=== PATIENT | female | born 1975 | race African-American/Black ===

== ENCOUNTER 2019-11-02 11:02 | Outpatient (CLI) | payer OTHER, SELFPAY ==
[2019-11-02 11:37] LABS: Basophils Absolute Auto 0.1 K/mm3 (0.0-0.1); Basophils Percent Auto 0.7 % (0.2-1.2); Eosinophils Absolute Auto 0.2 K/mm3 (0-0.3); Eosinophils Percent Auto 1.2 % (0-4.4); Hematocrit 42.3 % (37.0-47.0); Hemoglobin 13.4 g/dL (12.0-15.0); Immature Granulocyte Absolute 0.05 K/mm3 (0.00-0.031); Immature Granulocyte Percent A 0.4 % (0-0.5); Immature Platelet Fraction Pct 2.7 % (0.9-11.2); Lymphocytes Absolute Auto 2.48 K/mm3 (0.9-3.2); Lymphocytes Percent Auto 18.5 % (18.3-44.2); Mean Corpuscular HGB Conc 31.7 g/dl (32-36); Mean Corpuscular Hemoglobin 28.5 pg (26-34); Mean Corpuscular Volume 89.8 fl (80-100); Monocytes Absolute Auto 0.9 K/mm3 (0.1-0.6); Monocytes Percent Auto 6.5 % (2.6-8.5); Neutrophils Absolute Auto 9.7 K/mm3 (1.3-6.7); Neutrophils Percent Auto 72.7 % (45.5-73.1); Platelet Count Result 344 k/mm3 (150-375); Red Blood Count 4.71 M/mm3 (4.2-5.4); Red Cell Distribution Width 14.7 % (11.5-14.5); White Blood Count 13.4 K/mm3 (4.5-10.0)
[2019-11-02 11:48] LABS: Add Urine Microscopic? YES; Appearance Urine Clear (Clear); Bacteria Urine Trace /hpf; Bilirubin Urine Negative (Negative); Blood Urine Negative (Negative); Color Urine Yellow (Yellow); Glucose Urine UA Negative (Negative); Ketones Urine Trace mg/dL (Negative); Leukocyte Esterase Ur 1+ LEU/UL (Negative); Mucus Urine Moderate /lpf; Nitrate Urine Negative (Negative); Protein Urine 1+ mg/dL (Negative); Squamous Epithelial Cell Urine Many /hpf (Few)
[2019-11-02 11:51] LABS: Anion Gap 8 mmol/L (8-16); Blood Urea Nitrogen 8 mg/dL (7-17); Calcium 8.4 mg/dL (8.4-10.2); Carbon Dioxide 25 mmol/L (22-30); Chloride 106 mmol/L (98-107); Cholesterol 224 mg/dL (0-200); Estimated Glomerular Filt Rate > 60; Glucose 83 mg/dL (65-105); HDL Direct 42 mg/dL; Potassium 4.2 mmol/L (3.4-5.0); Sodium 139 mmol/L (137-145); Triglycerides 77 mg/dL (<150)
[2019-11-02 12:00] LABS: LDL Cholesterol Direct 179 mg/dL
== END 2019-11-02 11:03 | disposition home or self-care (01) ==
LOC: ANHLAB 11:04
PROVIDERS: PCP Internal Medicine Infectious Disease; Visit Provider Internal Medicine Infectious Disease
DX: N39.0 Urinary tract infection, site not specified (principal)
CPT/HCPCS: 36415; 80048; 80061; 81001; 85025; 85055

== ENCOUNTER 2019-11-29 12:05 | Outpatient (CLI) | payer OTHER, SELFPAY ==
[2019-11-29 12:39] LABS: Add Urine Microscopic? YES; Appearance Urine Clear (Clear); Bilirubin Urine Negative (Negative); Blood Urine Negative (Negative); Color Urine Amber (Yellow); Glucose Urine UA Negative (Negative); Ketones Urine Negative (Negative); Leukocyte Esterase Ur Negative LEU/UL (NEGATIVE); Mucus Urine Moderate /lpf; Nitrate Urine Negative (Negative); Protein Urine 1+ mg/dL (Negative); RBC Urine 0-2 /hpf (0-2); Specific Grav Ur 1.025 (1.001-1.035); Squamous Epithelial Cell Urine Few /hpf (Few); Urobilinogen Urine Negative mg/dL (<2.0); WBC Urine 0-3 /hpf (0-3)
== END 2019-11-29 12:06 | disposition home or self-care (01) ==
PROVIDERS: PCP Internal Medicine Infectious Disease; Visit Provider Surgery
DX: Z87.440 Personal history of urinary (tract) infections (principal)
CPT/HCPCS: 81001

== ENCOUNTER 2019-12-09 09:26 | Outpatient (CLI) | payer OTHER, SELFPAY ==
--- NOTE | ~2019-12-09 | US_ITS ---
EXAMINATION: US abdomen complete DATE: 12/09/2019 10:01 INDICATION: Unspecified abdominal pain. TECHNIQUE: Multiple grayscale and Doppler ultrasound images of the abdomen were obtained. COMPARISON: CT abdomen and pelvis 06/13/18 FINDINGS: Abdominal aorta is normal in caliber. Inferior vena cava is normal. The visualized portions of the head, body, and tail of the pancreas are normal. The liver is normal without focal lesion. Th ere is normal flow in main portal vein. The gallbladder is normal in size. No gallstones or gallbladd er wall thickening. There was no sonographic Quiroz sign. The common duct is normal and measures 3 mm . The kidneys are normal in size. The spleen is normal in size. IMPRESSION: 1. Normal complete abdomen ultrasound. Reviewed, dictated and finalized at location A.
== END 2019-12-09 09:27 | disposition home or self-care (01) ==
PROVIDERS: PCP Internal Medicine Infectious Disease; Visit Provider Surgery
DX: R10.9 Unspecified abdominal pain (principal)
CPT/HCPCS: 76700

== ENCOUNTER 2019-12-15 12:05 | Outpatient (CLI) | payer OTHER, SELFPAY ==
[2019-12-19 10:32] LABS: H pylori Ag Stool Not Detected (Not Detected)
== END 2019-12-15 12:06 | disposition home or self-care (01) ==
PROVIDERS: PCP Internal Medicine Infectious Disease; Visit Provider Surgery
DX: K51.90 Ulcerative colitis, unspecified, without complications (principal)
CPT/HCPCS: 87338

== ENCOUNTER 2019-12-27 17:21 | Outpatient (CLI) | payer OTHER, SELFPAY ==
--- NOTE | ~2019-12-27 | MM_ITS ---
EXAMINATION: MM screening [facility] BI w melodie HISTORY: Screening TECHNIQUE: Craniocaudal and mediolateral oblique 3-D tomosynthesis images were obtained and synthetic 2-D images were generated. CAD analysis was submitted and interpreted. COMPARISON: Comparison to multiple prior studies sequentially, with oldest reviewed study dated 08/31. BREAST PARENCHYMAL COMPOSITION: The breasts are heterogeneously dense, which may obscure small masses . FINDINGS: There is no evidence of suspicious mass, calcification, or architectural distortion to sugg est malignancy in either breast. There has been no suspicious interval change. IMPRESSION: 1. No mammographic evidence of malignancy. 2. Recommend routine screening mammography in one year. BI-RADS Category 1: Negative Reviewed, dictated and finalized at location A. WARE ENGINEER KERNEL
== END 2019-12-27 17:22 | disposition home or self-care (01) ==
PROVIDERS: PCP Internal Medicine Infectious Disease; Visit Provider Obstetrics & Gynecology
DX: Z12.31 Encounter for screening mammogram for malignant neoplasm of breast (principal)
CPT/HCPCS: 77063; 77067

== ENCOUNTER 2020-12-08 12:48 | Outpatient (CLI) | payer OTHER, SELFPAY ==
[2020-12-08 13:29] LABS: Basophils Absolute Auto 0.1 K/mm3 (0.0-0.1); Basophils Percent Auto 0.6 % (0.2-1.2); Eosinophils Absolute Auto 0.3 K/mm3 (0-0.3); Eosinophils Percent Auto 2.2 % (0-4.4); Hematocrit 39.9 % (37.0-47.0); Hemoglobin 12.6 g/dL (12.0-15.0); Immature Granulocyte Absolute 0.04 K/mm3 (0.00-0.031); Immature Granulocyte Percent A 0.3 % (0-0.5); Lymphocytes Absolute Auto 3.23 K/mm3 (0.9-3.2); Lymphocytes Percent Auto 25.9 % (18.3-44.2); Mean Corpuscular HGB Conc 31.6 g/dl (32-36); Mean Corpuscular Hemoglobin 28.2 pg (26-34); Mean Corpuscular Volume 89.3 fl (80-100); Mean Platelet Volume 9.9 fl (7.4-10.4); Monocytes Absolute Auto 0.9 K/mm3 (0.1-0.6); Monocytes Percent Auto 7.5 % (2.6-8.5); Neutrophils Absolute Auto 7.9 K/mm3 (1.3-6.7); Neutrophils Percent Auto 63.5 % (45.5-73.1); Platelet Count Result 353 k/mm3 (150-375); Red Blood Count 4.47 M/mm3 (4.2-5.4); Red Cell Distribution Width 14.7 % (11.5-14.5); White Blood Count 12.5 K/mm3 (4.5-10.0)
[2020-12-08 13:43] LABS: Anion Gap 6 mmol/L (8-16); Blood Urea Nitrogen 9 mg/dL (7-17); Calcium 8.9 mg/dL (8.4-10.2); Carbon Dioxide 29 mmol/L (22-30); Chloride 105 mmol/L (98-107); Estimated Glomerular Filt Rate > 60; Glucose 80 mg/dL (65-110); Potassium 4.3 mmol/L (3.4-5.0); Sodium 140 mmol/L (137-145)
== END 2020-12-08 12:49 | disposition home or self-care (01) ==
PROVIDERS: PCP Internal Medicine Infectious Disease; Visit Provider Physician Assistant Medical
DX: K51.20 Ulcerative (chronic) proctitis without complications (principal)
CPT/HCPCS: 36415; 80048; 85025

== ENCOUNTER 2021-01-13 10:32 | Outpatient (CLI) | payer OTHER, SELFPAY ==
[2021-01-13 11:05] LABS: Basophils Absolute Auto 0.1 K/mm3 (0.0-0.1); Basophils Percent Auto 0.7 % (0.2-1.2); Eosinophils Absolute Auto 0.3 K/mm3 (0-0.3); Eosinophils Percent Auto 2.1 % (0-4.4); Hematocrit 40.8 % (37.0-47.0); Immature Granulocyte Absolute 0.03 K/mm3 (0.00-0.031); Immature Granulocyte Percent A 0.2 % (0-0.5); Lymphocytes Absolute Auto 2.92 K/mm3 (0.9-3.2); Mean Corpuscular HGB Conc 31.9 g/dl (32-36); Mean Corpuscular Hemoglobin 29.1 pg (26-34); Mean Corpuscular Volume 91.5 fl (80-100); Mean Platelet Volume 9.8 fl (7.4-10.4); Monocytes Absolute Auto 0.9 K/mm3 (0.1-0.6); Monocytes Percent Auto 7.2 % (2.6-8.5); Neutrophils Percent Auto 65.8 % (45.5-73.1); Platelet Count Result 342 k/mm3 (150-375); Red Blood Count 4.46 M/mm3 (4.2-5.4); White Blood Count 12.2 K/mm3 (4.5-10.0)
[2021-01-13 11:18] LABS: Add Urine Microscopic? YES; Appearance Urine Cloudy (Clear); Bilirubin Urine Negative (Negative); Blood Urine Negative (Negative); Color Urine Amber (Yellow); Glucose Urine UA Negative (Negative); Ketones Urine Negative (Negative); Leukocyte Esterase Ur Negative LEU/UL (NEGATIVE); Mucus Urine Rare /lpf; Nitrate Urine Negative (Negative); Protein Urine Negative (Negative); Specific Grav Ur 1.018 (1.001-1.035); Squamous Epithelial Cell Urine Many /hpf (Few); Urobilinogen Urine Negative mg/dL (<2.0); WBC Urine 0-3 /hpf (0-3)
[2021-01-13 11:19] LABS: Alanine Aminotransferase 15 U/L (4-35); Albumin Level 4.2 g/dL (3.5-5.1); Alkaline Phosphatase 82 U/L (38-126); Anion Gap 8 mmol/L (8-16); Aspartate Amino Transferase 21 U/L (14-36); Bilirubin,Total 0.6 mg/dL (0.2-1.3); Blood Urea Nitrogen 7 mg/dL (7-17); Calcium 9.2 mg/dL (8.4-10.2); Carbon Dioxide 27 mmol/L (22-30); Chloride 102 mmol/L (98-107); Cholesterol 230 mg/dL (0-200); Estimated Glomerular Filt Rate > 60; Glucose 100 mg/dL (65-110); HDL Direct 42 mg/dL; Sodium 137 mmol/L (137-145); Triglycerides 94 mg/dL (<150)
[2021-01-13 11:30] LABS: LDL Cholesterol Direct 173 mg/dL
[2021-01-13 12:35] LABS: HIV 1/2 Ab P24 Ag Result Negative (Negative)
== END 2021-01-13 10:33 | disposition home or self-care (01) ==
PROVIDERS: PCP Internal Medicine Infectious Disease; Visit Provider Internal Medicine Infectious Disease
DX: Z00.00 Encounter for general adult medical examination without abnormal findings (principal); D72.829 Elevated white blood cell count, unspecified; Z11.59 Encounter for screening for other viral diseases
CPT/HCPCS: 36415; 80053; 80061; 81001; 85025; 86703; G0432

== ENCOUNTER 2021-06-25 14:31 | Outpatient (CLI) | payer OTHER, SELFPAY ==
--- NOTE | ~2021-06-25 | MM_ITS ---
EXAMINATION: MM screening [facility]hon[facility] BI w melodie HISTORY: Screening mammogram TECHNIQUE: Craniocaudal and mediolateral oblique 3-D tomosynthesis images were obtained and synthetic 2-D images were generated. Bilateral rotated lateral CC views. CAD analysis was submitted and interp reted. COMPARISON: 12/27/2019, 09/09/2018, 08/31/2017 bilateral screening mammogram examinations BREAST PARENCHYMAL COMPOSITION: The breasts are heterogeneously dense, which may obscure small masses . FINDINGS: There is no evidence of suspicious mass, calcification, or architectural distortion to sugg est malignancy in either breast. There has been no suspicious interval change. IMPRESSION: 1. No mammographic evidence of malignancy. 2. Recommend routine screening mammography in one year. BI-RADS Category 1: Negative Reviewed, dictated and finalized at location A.
== END 2021-06-25 14:32 | disposition home or self-care (01) ==
PROVIDERS: PCP Internal Medicine Infectious Disease; Visit Provider Internal Medicine Infectious Disease
DX: Z12.31 Encounter for screening mammogram for malignant neoplasm of breast (principal)
CPT/HCPCS: 77063; 77067

== ENCOUNTER 2021-09-11 15:33 | Outpatient (CLI) | payer OTHER, SELFPAY ==
[2021-09-11 16:03] LABS: Basophils Absolute Auto 0.1 K/mm3 (0.0-0.1); Basophils Percent Auto 0.9 % (0.2-1.2); Eosinophils Absolute Auto 0.2 K/mm3 (0-0.3); Eosinophils Percent Auto 1.8 % (0-4.4); Hematocrit 40.1 % (37.0-47.0); Hemoglobin 12.5 g/dL (12.0-15.0); Immature Granulocyte Absolute 0.04 K/mm3 (0.00-0.031); Immature Granulocyte Percent A 0.3 % (0-0.5); Lymphocytes Absolute Auto 2.81 K/mm3 (0.9-3.2); Lymphocytes Percent Auto 23.4 % (18.3-44.2); Mean Corpuscular HGB Conc 31.2 g/dl (32-36); Mean Corpuscular Hemoglobin 28.3 pg (26-34); Mean Corpuscular Volume 90.9 fl (80-100); Mean Platelet Volume 9.9 fl (7.4-10.4); Monocytes Absolute Auto 0.8 K/mm3 (0.1-0.6); Monocytes Percent Auto 6.8 % (2.6-8.5); Neutrophils Percent Auto 66.8 % (45.5-73.1); Platelet Count Result 316 k/mm3 (150-375); Red Blood Count 4.41 M/mm3 (4.2-5.4); Red Cell Distribution Width 14.6 % (11.5-14.5)
[2021-09-11 16:20] LABS: Anion Gap 5 mmol/L (8-16); Blood Urea Nitrogen 5 mg/dL (7-17); Calcium 8.6 mg/dL (8.4-10.2); Carbon Dioxide 27 mmol/L (22-30); Chloride 107 mmol/L (98-107); Estimated Glomerular Filt Rate > 60; Glucose 99 mg/dL (65-110); Potassium 3.4 mmol/L (3.4-5.0); Sodium 139 mmol/L (137-145)
[2021-09-11 20:59] LABS: Hemoglobin A1C 5.3 % (<5.7)
== END 2021-09-11 15:34 | disposition home or self-care (01) ==
PROVIDERS: PCP Internal Medicine Infectious Disease; Visit Provider Physician Assistant Medical
DX: R73.09 Other abnormal glucose (principal)
CPT/HCPCS: 36415; 80048; 83036; 85025

== ENCOUNTER 2022-03-15 12:34 | Outpatient (CLI) | payer OTHER, SELFPAY ==
[2022-03-15 13:22] LABS: Anion Gap 7 mmol/L (8-16); Blood Urea Nitrogen 6 mg/dL (7-17); Calcium 8.5 mg/dL (8.4-10.2); Carbon Dioxide 29 mmol/L (22-30); Chloride 105 mmol/L (98-107); Estimated Glomerular Filt Rate > 60; Glucose 79 mg/dL (65-110); Potassium 3.7 mmol/L (3.4-5.0); Sodium 141 mmol/L (137-145)
[2022-03-15 13:25] LABS: Basophils Absolute Auto 0.1 K/mm3 (0.0-0.1); Basophils Percent Auto 0.9 % (0.2-1.2); Eosinophils Absolute Auto 0.3 K/mm3 (0-0.3); Hematocrit 41.8 % (37.0-47.0); Hemoglobin 13.2 g/dL (12.0-15.0); Immature Granulocyte Absolute 0.04 K/mm3 (0.00-0.031); Immature Granulocyte Percent A 0.3 % (0-0.5); Lymphocytes Absolute Auto 3.46 K/mm3 (0.9-3.2); Lymphocytes Percent Auto 27.1 % (18.3-44.2); Mean Corpuscular HGB Conc 31.6 g/dl (32-36); Mean Corpuscular Hemoglobin 29.1 pg (26-34); Mean Corpuscular Volume 92.1 fl (80-100); Mean Platelet Volume 10.1 fl (7.4-10.4); Monocytes Percent Auto 7.8 % (2.6-8.5); Neutrophils Absolute Auto 7.9 K/mm3 (1.3-6.7); Neutrophils Percent Auto 61.9 % (45.5-73.1); Platelet Count Result 298 k/mm3 (150-375); Red Blood Count 4.54 M/mm3 (4.2-5.4); Red Cell Distribution Width 14.5 % (11.5-14.5); White Blood Count 12.8 K/mm3 (4.5-10.0)
== END 2022-03-15 12:35 | disposition home or self-care (01) ==
LOC: ANHLAB 12:35
PROVIDERS: PCP Internal Medicine Infectious Disease; Visit Provider Internal Medicine Infectious Disease
DX: R68.89 Other general symptoms and signs (principal); Z51.81 Encounter for therapeutic drug level monitoring; Z79.899 Other long term (current) drug therapy
CPT/HCPCS: 36415; 80048; 84443; 85025

== ENCOUNTER 2022-03-29 13:06 | Outpatient (CLI) | payer OTHER, SELFPAY ==
[2022-03-29 14:16] LABS: Alanine Aminotransferase 17 U/L (6-35); Albumin Level 3.8 g/dL (3.5-5.1); Alkaline Phosphatase 79 U/L (38-126); Anion Gap 9 mmol/L (8-16); Aspartate Amino Transferase 24 U/L (14-36); Bilirubin,Total 0.8 mg/dL (0.2-1.3); Blood Urea Nitrogen 5 mg/dL (7-17); Calcium 8.3 mg/dL (8.4-10.2); Carbon Dioxide 28 mmol/L (22-30); Chloride 105 mmol/L (98-107); Estimated Glomerular Filt Rate > 60; Glucose 86 mg/dL (65-110); Potassium 3.6 mmol/L (3.4-5.0); Sodium 142 mmol/L (137-145)
[2022-03-29 14:43] LABS: Appearance Urine Clear (Clear); Bilirubin Urine Negative (Negative); Blood Urine Trace-lysed (Negative); Color Urine Light Yellow (Yellow); Glucose Urine UA Negative (Negative); Ketones Urine Negative (Negative); Leukocyte Esterase Ur Negative LEU/UL (Negative); Nitrate Urine Negative (Negative); Protein Urine Negative (Negative); Urobilinogen Urine 0.2 mg/dL (<2.0); pH Urine 6.5 (5.0-9.0)
[2022-03-29 14:55] LABS: Mucus Urine Rare /lpf; RBC Urine 0-2 /hpf (0-2); Squamous Epithelial Cell Urine Rare /hpf (Few); WBC Urine 0-3 /hpf
[2022-03-29 15:02] LABS: Add Urine Microscopic? YES
== END 2022-03-29 13:07 | disposition home or self-care (01) ==
PROVIDERS: PCP Internal Medicine Infectious Disease
DX: K51.20 Ulcerative (chronic) proctitis without complications (principal)
CPT/HCPCS: 36415; 80053; 81001

== ENCOUNTER 2022-09-16 14:57 | Outpatient (CLI) | payer OTHER, SELFPAY ==
--- NOTE | ~2022-09-16 | MM_ITS ---
EXAMINATION: MM screening [facility] BI w melodie HISTORY: Screening mammogram TECHNIQUE: Craniocaudal and mediolateral oblique 3-D tomosynthesis images were obtained and synthetic 2-D images were generated. CAD analysis was submitted and interpreted. COMPARISON: 06/25/2021, 12/27/2019, 09/13/2018 BREAST PARENCHYMAL COMPOSITION: There are scattered areas of fibroglandular density. FINDINGS: No suspicious mass, calcification, or architectural distortion are identified in either stan ast to suggest malignancy. There has been no suspicious interval change. IMPRESSION: 1. No mammographic evidence of malignancy. 2. Recommend routine screening mammography in one year. BI-RADS Category 1: Negative Reviewed, dictated and finalized at location A.
== END 2022-09-16 14:58 | disposition home or self-care (01) ==
LOC: ANHIMG 14:59
PROVIDERS: PCP Internal Medicine Infectious Disease; Visit Provider Internal Medicine Infectious Disease
DX: Z12.31 Encounter for screening mammogram for malignant neoplasm of breast (principal)
CPT/HCPCS: 77063; 77067

== ENCOUNTER 2023-03-28 07:04 | Outpatient (CLI) | payer OTHER, SELFPAY ==
[2023-03-28 08:24] LABS: Appearance Urine Clear (Clear); Bilirubin Urine Negative (Negative); Blood Urine Negative (Negative); Color Urine Yellow (Yellow); Glucose Urine UA Negative (Negative); Ketones Urine Trace mg/dL (Negative); Leukocyte Esterase Ur Negative LEU/UL (Negative); Nitrate Urine Negative (Negative); Protein Urine Negative (Negative); Specific Grav Ur 1.018 (1.001-1.035); Urobilinogen Urine 0.2 mg/dL (<2.0); pH Urine 6.5 (5.0-9.0)
[2023-03-28 08:27] LABS: Add Urine Microscopic? NO
== END 2023-03-28 07:05 | disposition home or self-care (01) ==
PROVIDERS: PCP Internal Medicine Infectious Disease
DX: K51.20 Ulcerative (chronic) proctitis without complications (principal)
CPT/HCPCS: 81003

== ENCOUNTER 2023-05-06 07:10 | Outpatient (CLI) | payer OTHER, SELFPAY ==
--- NOTE | ~2023-05-06 | XR_ITS ---
XR hip RT min 2V 05/06/2023 14:38 Indication: Right inguinal pain Procedure: 2 views right hip Comparison: No prior studies for comparison. Findings: No fracture, subluxation or dislocation. No soft tissue abnormality. No foreign bodies. Impression: 1: No significant bone or joint abnormality. Reviewed, dictated and finalized at location A. Impression: 1: No significant bone or joint abnormality.
[2023-05-06 13:04] LABS: Basophils Absolute Auto 0.1 K/mm3 (0.0-0.1); Basophils Percent Auto 0.8 % (0.2-1.2); Eosinophils Absolute Auto 0.3 K/mm3 (0-0.3); Eosinophils Percent Auto 2.4 % (0-4.4); Hematocrit 42.5 % (37.0-47.0); Hemoglobin 13.2 g/dL (12.0-15.0); Immature Granulocyte Absolute 0.03 K/mm3 (0.00-0.031); Immature Granulocyte Percent A 0.3 % (0-0.5); Lymphocytes Absolute Auto 2.76 K/mm3 (0.9-3.2); Lymphocytes Percent Auto 24.1 % (18.3-44.2); Mean Corpuscular HGB Conc 31.1 g/dl (32-36); Mean Corpuscular Hemoglobin 28.5 pg (26-34); Mean Corpuscular Volume 91.8 fl (80-100); Mean Platelet Volume 9.6 fl (7.4-10.4); Monocytes Percent Auto 8.6 % (2.6-8.5); Neutrophils Absolute Auto 7.3 K/mm3 (1.3-6.7); Neutrophils Percent Auto 63.8 % (45.5-73.1); Platelet Count Result 317 k/mm3 (150-375); Red Blood Count 4.63 M/mm3 (4.2-5.4); Red Cell Distribution Width 15.1 % (11.5-14.5); White Blood Count 11.5 K/mm3 (4.5-10.0)
[2023-05-06 13:21] LABS: Alanine Aminotransferase 13 U/L (6-35); Albumin Level 4.1 g/dL (3.5-5.1); Alkaline Phosphatase 80 U/L (38-126); Anion Gap 3 mmol/L (8-16); Aspartate Amino Transferase 20 U/L (14-36); Bilirubin,Total 0.8 mg/dL (0.2-1.3); Blood Urea Nitrogen 8 mg/dL (7-17); Carbon Dioxide 29 mmol/L (22-30); Chloride 106 mmol/L (98-107); Cholesterol 232 mg/dL (0-200); Estimated Glomerular Filt Rate > 60; Glucose 85 mg/dL (65-110); HDL Direct 46 mg/dL; Potassium 4.2 mmol/L (3.4-5.0); Sodium 138 mmol/L (137-145); Triglycerides 78 mg/dL (<150)
[2023-05-06 13:32] LABS: LDL Cholesterol Direct 172 mg/dL
[2023-05-06 13:42] LABS: Hemoglobin A1C 5.4 % (<5.7)
== END 2023-05-06 07:11 | disposition home or self-care (01) ==
LOC: ANHLAB 07:14
PROVIDERS: PCP Internal Medicine Infectious Disease; Visit Provider Internal Medicine Infectious Disease
DX: R10.2 Pelvic and perineal pain (principal); Z00.01 Encounter for general adult medical examination with abnormal findings; Z68.31 Body mass index [BMI] 31.0-31.9, adult
CPT/HCPCS: 36415; 73502; 80053; 80061; 83036; 84443; 85025

== ENCOUNTER 2023-07-27 09:11 | Outpatient (CLI) | payer OTHER, SELFPAY ==
[2023-07-27 10:31] LABS: Hematocrit 43.6 % (37.0-47.0); Hemoglobin 13.5 g/dL (12.0-15.0); Mean Corpuscular Hemoglobin 28.6 pg (26-34); Mean Corpuscular Volume 92.4 fl (80-100); Mean Platelet Volume 10.4 fl (7.4-10.4); Platelet Count Result 280 k/mm3 (150-375); Red Blood Count 4.72 M/mm3 (4.2-5.4); Red Cell Distribution Width 14.3 % (11.5-14.5); White Blood Count 9.2 K/mm3 (4.5-10.0)
[2023-07-27 10:56] LABS: Free T4 Free Thyroxine 1.13 ng/mL (0.78-2.19)
[2023-07-29 02:43] LABS: Prolactin 7.5 ng/mL
== END 2023-07-27 09:12 | disposition home or self-care (01) ==
PROVIDERS: PCP Internal Medicine Infectious Disease; Visit Provider Obstetrics & Gynecology
DX: N92.0 Excessive and frequent menstruation with regular cycle (principal)
CPT/HCPCS: 36415; 84146; 84439; 84443; 85027

== ENCOUNTER 2023-09-01 13:30 | Outpatient (RCR) | payer OTHER, SELFPAY ==
[2023-06-30 14:45] VITALS: BMI 32.0
[2023-07-28 14:41] VITALS: BMI 31.6
[2023-07-28 15:04] VITALS: BMI 31.6
[2023-09-01 14:30] VITALS: BMI 31.3
== END 2023-09-28 23:59 | disposition home or self-care (01) ==
LOC: ANHDMC 13:30
PROVIDERS: PCP Internal Medicine Infectious Disease; Visit Provider Internal Medicine Infectious Disease
DX: E78.9 Disorder of lipoprotein metabolism, unspecified (principal); Z71.3 Dietary counseling and surveillance
CPT/HCPCS: 97802; 97803

== ENCOUNTER 2023-09-23 08:31 | Outpatient (CLI) | payer OTHER, SELFPAY ==
[2023-09-23 10:01] LABS: Cholesterol 200 mg/dL (0-200); HDL Direct 43 mg/dL; Triglycerides 54 mg/dL (<150)
[2023-09-23 10:12] LABS: LDL Cholesterol Direct 129 mg/dL
== END 2023-09-23 08:32 | disposition home or self-care (01) ==
PROVIDERS: PCP Internal Medicine Infectious Disease; Visit Provider Internal Medicine Infectious Disease
DX: E78.9 Disorder of lipoprotein metabolism, unspecified (principal)
CPT/HCPCS: 36415; 80061

== ENCOUNTER 2023-10-20 10:40 | Outpatient (RCR) | payer OTHER, SELFPAY ==
[2023-10-20 11:01] VITALS: BMI 31.4
[2023-10-20 12:37] VITALS: BMI 31.4
== END 2024-01-09 10:51 | disposition home or self-care (01) ==
LOC: ANHDMC 10:40
PROVIDERS: PCP Internal Medicine Infectious Disease; Visit Provider Internal Medicine Infectious Disease
DX: E78.9 Disorder of lipoprotein metabolism, unspecified (principal); Z71.3 Dietary counseling and surveillance
CPT/HCPCS: 97803

== ENCOUNTER 2024-02-03 14:13 | Outpatient (CLI) | payer OTHER, SELFPAY ==
--- NOTE | ~2024-02-03 | CT_ITS ---
Non-contrast Head CT History: Headache Technique: Axial non-contrast imaging of the brain was performed. Dose reduction technique was used on this scan by utilizing automated exposure control and iterative reconstruction technique. The dose -length product (DLP) was 681.00 mGy-cm. Findings: There is no evidence of intracranial hemorrhage, mass lesion, or acute infarct. Brain par enchyma appears normal. The ventricles and subarachnoid spaces are normal in size. The calvarium ap pears normal. The visualized paranasal sinuses and mastoid air cells are clear. Impression: No significant abnormality seen. Reviewed, dictated and finalized at location . STERED CLINICAL DIETITIAN Impression: No significant abnormality seen.
--- OUTSIDE RECORDS SUMMARY | 2024-02-06 18:53 | XMS_ITS | Referral Summary ---
Author Organization [facility] Address [address] [place] [address] Care Team Providers Care Lead Coater Name Role Phone Balbina Calderon MD Primary Care Provider Source Comments [facility],non-owned Affiliates and Associated Physician Practices is amultiple site organization consisting of ambulatory clinics and hospital sitesin [place], [place], [place] and [place]. This disclosure is being madepursuant to the Care Everywhere program and may not contain all information available regarding this patient. Last updated 17.[facility] Medications * Be aware that medications may not be up to date on this document. Alwaysverify current medications with the patient. Medication Sig Dispensed Refills Start Date End Date Status norethin-eth estradiol-FE (LOESTRIN FE 03/12; JUNEL FE 03/12; MICROGESTIN FE 03/12) 1-20 MG-MCG tablet Take 1 tablet by mouth DAILY. 04/28/2016 Active meloxicam (MOBIC) 15 MG tablet Take 15 mg by mouth. 90 tablet 1 03/24/2016 Active beclomethasone dipropionate (QVAR) 80 MCG/ACT inhaler Inhale 1 puff by mouth BID. 03/24/2016 Active albuterol HFA (PROAIR HFA) 108 (90 BASE) MCG/ACT inhaler Inhale 2 puffs by mouth q6h PRN (Wheezing). 03/24/2016 Active Acetaminophen (TYLENOL) 325 MG CAPS Take 2 tablets by mouth. 03/24/2016 Active balsalazide (COLAZAL) 750 MG capsule Take 750 mg by mouth TID. 03/24/2016 Active Active Problems Problem Noted Date Diagnosed Date Mild intermittent asthma, uncomplicated 03/24/19 17 Noninfective gastroenteritis and colitis 017 Hypermobility syndrome 03/24/2016 Social History Tobacco Use Types Packs/Day Years Used Date Smoking Tobacco: Never Smokeless Tobacco: Never Alcohol Use Standard Drinks/Week Comments No 0 (1 standard drink = 0.6 oz pur e alcohol) Sex and Gender Information Value Date Recorded Sex Assigned at Not on file Gender Identity Not on file Sexual Orientation Not on file Last Filed Vital Signs Vital Sign Reading Time Taken Comments Blood Pressure 142/88 04/28/2016 11:01 AM COLORIST PHOTOGRAPHY Pulse 102 04/28/2016 11:01 AM COLORIST PHOTOGRAPHY Temperature 36.9 ??C (98.5 ??F) 04/28/2016 11:[address] Respiratory Rate 16 04/28/2016 11:01 AM COLORIST PHOTOGRAPHY Oxygen Saturation - - Inhaled Oxygen Concentration - - Weight 92.1 kg (203 lb) 04/28/2016 11:01 AM COLORIST PHOTOGRAPHY Height 175.3 cm (5' 9 ) 04/28/2016 11:01 AM COLORIST PHOTOGRAPHY Body Mass Index 29.98 04/28/2016 11:01 AM COLORIST PHOTOGRAPHY Plan of Treatment Not on file Care Teams Lead Coater Relationship Specialty Start Date End Date Balbina Calderon MD [address] [place], [place] [phone] PCP - General 10/14/15
--- OUTSIDE RECORDS SUMMARY | 2024-02-06 18:53 | XMS_ITS | Encounter Summary ---
Author Organization [facility] Address [facility] [facility] [place] [address] Care Team Providers Care Salesperson Sewing Machines Name Role Phone Balbina Calderon MD Primary Care Provider Encounter Details Date Type Department Care Team (Latest Contact Info) Description 03/17/2023 Travel Social History Tobacco Use Types Packs/Day Years Used Date Smoking Tobacco: Never Smokeless Tobacco: Never Alcohol Use Standard Drinks/Week Comments No 0 (1 standard drink = 0.6 oz pur e alcohol) Sex and Gender Information Value Date Recorded Sex Assigned at Not on file Gender Identity Not on file Sexual Orientation Not on file documented as of this encounter Plan of Treatment Not on file documented as of this encounter Visit Diagnoses Not on filedocumented in this encounter Care Teams Salesperson Sewing Machines Relationship Specialty Start Date End Date Balbina Calderon MD [address] [place], [place] [phone] PCP - General 10/14/15 documented as of this encounter
--- OUTSIDE RECORDS SUMMARY | 2024-02-06 18:53 | XMS_ITS | Encounter Summary ---
Author Organization [facility] Address [facility] [place] [address] Care Team Providers Care Dialysis Biomed Technician Name Role Phone Balbina Calderon MD Primary Care Provider Encounter Details Date Type Department Care Team (Latest Contact Info) Description 05/02/2023 Travel Social History Tobacco Use Types Packs/Day [...] on filedocumented in this encounter Care Teams Dialysis Biomed Technician Relationship Specialty Start Date End Date Balbina Calderon MD [address] [place], [place] [phone] PCP - General 10/14/15 documented as of this encounter
--- OUTSIDE RECORDS SUMMARY | 2024-02-06 18:53 | XMS_ITS | Clinical Summary ---
Author Organization [facility] [employer] Address [address] [place] [address] Care Team Providers Care Assistant Bookkeeper Name Role Phone Balbina Calderon MD Primary Care Provider Source Comments [facility] [employer],non-owned Affiliates and Associated Physician Practices is amultiple site organization consisting of ambulatory clinics and hospital sitesin [place], [place], [place] and [place]. This disclosure is being madepursuant to the Care Everywhere program and may not contain all information available regarding this patient. Last updated 17.[facility] [employer] Medications * Be aware that medications may [...] gastroenteritis and colitis 017 Hypermobility syndrome 03/24/2016 Family History Medical History Relation Name Comments Arthritis - Rheumatoid Mother Ulcerative Colitis Sister Inflammatory Bowel Disease Neg Hx Psoriasis Neg Hx Relation Name Status Comments Mother Sister Social History Tobacco Use Types Packs/Day Years [...] Comments Blood Pressure 142/88 04/28/2016 11:01 AM PANTOGRAPH SETTER Pulse 102 04/28/2016 11:01 AM PANTOGRAPH SETTER Temperature 36.9 ??C (98.5 ??F) 04/28/2016 11:[address] Respiratory Rate 16 04/28/2016 11:01 AM PANTOGRAPH SETTER Oxygen Saturation - - Inhaled Oxygen Concentration - - Weight 92.1 kg (203 lb) 04/28/2016 11:01 AM PANTOGRAPH SETTER Height 175.3 cm (5' 9 ) 04/28/2016 11:01 AM PANTOGRAPH SETTER Body Mass Index 29.98 04/28/2016 11:01 AM PANTOGRAPH SETTER Plan of Treatment Health Maintenance Due Date Last Done Comments COLOGUARD (AGES 45-75) - COL ON CA SCREENING 1977 COLON MONITORING 1977 COLONOSCOPY - COLON CA SCREENING 1977 CT COLONOGRAPHY - COLON CA SCREENING 1977 Colorectal Cancer Screening 1977 FIT - COLON CA SCREENING 1977 FLEX SIG - COLON CA SCREENING 1977 LIPID TESTING 1977 MAMMOGRAM 1977 PAP SMEAR 1977 PNEUMOCOCCAL VACCINE (1 of 2 - PCV) 07/05/1983 HIV SCREENING 1992 HEPATITIS C SCREENING 06/30/1995 DTAP/TDAP/TD VACCINES (1 - Tdap) 1996 HEPATITIS B VACCINE (1 of 3 - 19+ 3-dose series) 1996 DEPRESSION SCREENING 02/21/2023 COVID-19 VACCINE (1 - 2023-2 5 season) 2023 INFLUENZA VACCINE (#1) 2023 ZOSTER VACCINE (1 of 2) 07/05/2027 HIB VACCINE Aged Out No longer eligi ble based on patient's age to complete this topic HPV VACCINE Aged Out No longer eligi ble based on patient's age to complete this topic MENINGOCOCCAL VACCINE Aged Out No savannah clarence eligible based on patient's age to complete this topic Care Teams Assistant Bookkeeper Relationship Specialty Start Date End Date Balbina Calderon MD [address] [place], [place] [phone] PCP - General 10/14/15
--- OUTSIDE RECORDS SUMMARY | 2024-02-06 18:53 | XMS_ITS | Encounter Summary ---
Author Organization [facility] Address [address] [place] [address] Care Team Providers Care Creative Developer Name Role Phone Balbina Calderon MD Primary Care Provider Reason for Visit * Reason Onset Date Comments Follow-up 10/22/2020 Encounter Details Date Type Department Care Team (Late st Contact Info) Description 10/22/2020 Telephone [facility] - [address] [phone] Mary Jo Dumont RN Follow-up Social History Tobacco Use Types Packs/Day Years Used Date Smoking Tobacco: Never Smokeless Tobacco: Never Alcohol Use Standard Drinks/Week Comments No 0 (1 standard drink = 0.6 oz pur e alcohol) Sex and Gender Information Value Date Recorded Sex Assigned at Not on file Gender Identity Not on file Sexual Orientation Not on file documented as of this encounter Miscellaneous Notes * Telephone Encounter - Mary Jo Dumont RN - 10/22/2020 1:49 PM CDT In error documented in this encounter Plan of Treatment Not on file documented as of this encounter Visit Diagnoses Not on filedocumented in this encounter Care Teams Creative Developer Relationship Specialty [place] [address] [place] [phone] PCP - General 10/14/15 documented as of this encounter
--- OUTSIDE RECORDS SUMMARY | 2024-02-06 18:53 | XMS_ITS | Patient Health Summary ---
Author Organization [facility] Address [address] [place] [address] Care Team Providers Care Pigment Supplier Name Role Phone Balbina Calderon MD Primary Care Provider Note from [facility],non-owned Affiliates and Associated Physician Practices is amultiple site organization consisting of ambulatory clinics and hospital sitesin [place], [place], [place] and [place]. This disclosure is being madepursuant to the Care Everywhere program and may not contain all information available regarding this patient. Last updated 17.[facility] Medications * Be aware that medications may not be up to date on this document. Alwaysverify current medications with the patient. * norethin-eth estradiol-FE (LOESTRIN FE 03/12; JUNEL FE 03/12; MICROGESTIN FE 03/12) 1-20 MG-MCG tablet(Started 04/28/2016) Take 1 tablet by mouth DAILY. * meloxicam (MOBIC) 15 MG tablet(Started 03/24/2016) Take 15 mg by mouth. 1 refill left * beclomethasone dipropionate (QVAR) 80 MCG/ACT inhaler(Started 03/24/2016) Inhale 1 puff by mouth BID. * albuterol HFA (PROAIR HFA) 108 (90 BASE) MCG/ACT inhaler(Started 03/24/2016) Inhale 2 puffs by mouth q6h PRN (Wheezing). * Acetaminophen (TYLENOL) 325 MG CAPS(Started 03/24/2016) Take 2 tablets by mouth. * balsalazide (COLAZAL) 750 MG capsule(Started 03/24/2016) Take 750 mg by mouth TID. Active Problems Problem Noted Date Diagnosed Date [...] Comments Blood Pressure 142/88 04/28/2016 11:01 AM BANKRUPTCY ATTORNEY Pulse 102 04/28/2016 11:01 AM BANKRUPTCY ATTORNEY Temperature 36.9 ??C (98.5 ??F) 04/28/2016 11:[address] Respiratory Rate 16 04/28/2016 11:01 AM BANKRUPTCY ATTORNEY Oxygen Saturation - - Inhaled Oxygen Concentration - - Weight 92.1 kg (203 lb) 04/28/2016 11:01 AM BANKRUPTCY ATTORNEY Height 175.3 cm (5' 9 ) 04/28/2016 11:01 AM BANKRUPTCY ATTORNEY Body Mass Index 29.98 04/28/2016 11:01 AM BANKRUPTCY ATTORNEY Procedures * RHEUMATOID FACTOR BLOOD QUANTITATIVE(Performed 04/05/2016) * ERYTHROCYTE SEDIMENTATION RATE(Performed 04/05/2016) * THYROID PEROXIDASE ANTIBODY(Performed 04/05/2016) * TSH HI LOW REFLEX FREE T4(Performed 04/05/2016) * URINALYSIS REFLEX TO MICROSCOPIC NO CULTURE(Performed 04/05/2016) * VITAMIN D 25-HYDROXY(Performed 04/05/2016) * COMPREHENSIVE METABOLIC PANEL(Performed 04/05/2016) * CBC W AUTO DIFFERENTIAL(Performed 04/05/2016) * SS-A/SS-B (SJOGREN'S) ANTIBODY PANEL(Performed 04/05/2016) * HLA TYPING B27(Performed 04/05/2016) * CYCLIC CITRULLINATED PEPTIDE(CCP) AB IGG(Performed 04/05/2016) * HISTONE ANTIBODY(Performed 04/05/2016) * BRODY BLOOD SCREEN W/REFLEX TITER(Performed 04/05/2016) Results * TSH HI LOW REFLEX FREE T4 (04/05/2016 11:42 AM BANKRUPTCY ATTORNEY) TSH 2.300 0.450 - 4.500 uIU/mL [facility] (BEAKER) 04/05/2016 11:4 2 AM BANKRUPTCY ATTORNEY 04/05/2016 Narrative [facility] (BEAKER) - 04/09/2016 1:11 PM BANKRUPTCY ATTORNEY Performed at: ??[address], [place], [place] ??[id number] Core Drill Operator Helper: Ced Gutierrez PhD, Phone: ??[phone] Specimen Comment: A courtesy copy of this report has been sent to Specimen Comment: [facility]/SIF. Carla Rufina BELTRAN LAB - CHEMISTRY ARVIN COLE [facility] (BEAKER) * URINALYSIS REFLEX TO MICROSCOPIC NO CULTURE (04/05/2016 11:42 AM BANKRUPTCY ATTORNEY) Specific [place] 1.023 1.005 - 1.030 [facility] (BEAKER) pH Urine 6.0 5.0 - 7.5 [facility] (BEAKER) Color UA Yellow Yellow [facility] (BEAKER) Appearance Clear Clear [facility] (BEAKER) Leukocyte Esterase Negative Negative [facility] (BEAKER) Protein UA Negative Negative/Tra ce [facility] (BEAKER) Glucose UA Negative Negative [facility] (BEAKER) Ketone UA Negative Negative [facility] (BEAKER) Blood UA Negative Negative [facility] (BEAKER) Bilirubin Negative Negative [facility] (BEAKER) Urobilinogen Semi-Qn 0.2 0.2 - 1.0 mg/dL [facility] (BEAKER) Nitrite UA Negative Negative [facility] (BEAKER) Microscopic Examination [facility] (BEAKER) Comment:Microscopic not susie cated and not performed. Urine specimen (specimen) URINE SPECIMEN OBTAINED BY CLEAN CATCH PROCEDURE / Unknown 04/05/2016 11:42 AM BANKRUPTCY ATTORNEY 04/05/2016 Narrative [facility] (BEAKER) - 04/09/2016 1:11 PM BANKRUPTCY ATTORNEY Performed at: ??01 - [facility] [address], [place], [place] ??[id number] Core Drill Operator Helper: Ced Gutierrez PhD, Phone: ??[phone] Specimen Comment: A courtesy copy of this report has been sent to Specimen Comment: [facility]/SIF. Carla Almaraz MD LAB - URINALYSIS ORD ERABLES Performing Organization Address [facility] de Phone Number [facility] ([facility]) * RHEUMATOID FACTOR BLOOD QUANTITATIVE (04/05/2016 11:42 AM BANKRUPTCY ATTORNEY) Pathologist [facility] RA latex Turbidimetry 12.6 0.0 - 13.9 IU/mL [facility]) Blood specimen (specimen) BLOOD SPECIMEN / Unknown 04/05/2016 11:42 AM BANKRUPTCY ATTORNEY 04/05/2016 Narrative [facility] ([facility]) - 04/09/2016 1:11 PM BANKRUPTCY ATTORNEY Performed at: ??01 - [address] ??[id number] Core Drill Operator Helper: Ced Gutierrez PhD, Phone: ??[phone] Specimen Comment: A courtesy copy of this report has been sent to Specimen Comment: [facility]/SIF. Carla Almaraz MD LAB - CHEMISTRY ORDE RABLES Performing Organization Address [facility] de Phone Number [facility] ([facility]) * BRODY BLOOD SCREEN W/REFLEX TITER (04/05/2016 11:42 AM BANKRUPTCY ATTORNEY) Pathologist [facility] BRODY IFA Negative [facility] ([facility]) Comment: ? Negative ?? <1:80 ? Borderline ??1:80 ? Positive ?? >1:80 Blood specimen (specimen) BLOOD SPECIMEN / Unknown 04/05/2016 11:42 AM BANKRUPTCY ATTORNEY 04/05/2016 Narrative [facility] (BEAKER) - 04/09/2016 1:11 PM BANKRUPTCY ATTORNEY Performed at: ??01 - [facility] ??[id number] Core Drill Operator Helper: Ced Gutierrez PhD, Phone: ??[phone] Specimen Comment: A courtesy copy of this report has been sent to Specimen Comment: [facility]/SIHF. Carla Almaraz MD LAB - CHEMISTRY ARVIN COLE Performing Organization Address City/[facility]/ZIP Co de Phone Number [facility] ([facility]) * SS-A/SS-B (SJOGRENS) ANTIBODY PANEL (04/05/2016 11:42 AM BANKRUPTCY ATTORNEY) Sjogren's Antibodies (SSA) <0.2 0.0 - 0.9 AI [facility] (BEAKER) Sjogren's Antibodies (SSB) <0.2 0.0 - 0.9 AI [facility] (BEAKER) 04/05/2016 11:4 2 AM BANKRUPTCY ATTORNEY 04/05/2016 Narrative [facility] (BEAKER) - 04/09/2016 1:11 PM BANKRUPTCY ATTORNEY Performed at: ??01 - [facility] ??[id number] Core Drill Operator Helper: Ced Gutierrez PhD, Phone: ??[phone] Specimen Comment: A courtesy copy of this report has been sent to Specimen Comment: [facility]/SIF. Carla Almaraz MD LAB - CHEMISTRY ARVIN COLE Performing Organization Address City/[facility]/ZIP Co de Phone Number [facility] ([place]) * THYROID PEROXIDASE ANTIBODY (04/05/2016 11:42 AM BANKRUPTCY ATTORNEY) Thyroid Peroxidase TPO Antibody 10 0 - 34 IU/mL [facility] (BEAKER) Blood specimen (specimen) BLOOD SPECIMEN / Unknown 04/05/2016 11:42 AM BANKRUPTCY ATTORNEY 04/05/2016 Narrative [facility] ([place]) - 04/09/2016 1:11 PM BANKRUPTCY ATTORNEY Performed at: ??01 - [facility] [address] ??[id number] Core Drill Operator Helper: Ced Gutierrez PhD, Phone: ??[phone] Specimen Comment: A courtesy copy of this report has been sent to Specimen Comment: [facility]/SIHF. Carla Almaraz MD LAB - CHEMISTRY ARVIN COLE Performing Organization Address City/[facility]/ZIP Co de Phone Number [facility] ([place]) * HLA TYPING B27 (04/05/2016 11:42 AM BANKRUPTCY ATTORNEY) HLA-B27 Negative [facility] ([place]) Comment: HLA-B*27 Negative HLA allele interpretation for all loci based on IMGT/HLA database version 3.25.0 HLA Lab CLIA ID Number [id number] This test was performed using PCR (Polymerase Chain Reaction)/SSOP (Sequence Specific Oligonucleotide Probes) technique. ??SBT (Sequence Based Typing) and/or SSP (Sequence Specific Primers) may be used as supplemental methods when necessary. ??Please contact HLA Customer Service at if you have any questions. Director of HLA Laboratory Dr Berlin Quesada, PhD Blood specimen (specimen) BLOOD SPECIMEN / Unknown 04/05/2016 11:42 AM BANKRUPTCY ATTORNEY 04/05/2016 Narrative [facility] ([place]) - 04/09/2016 1:11 PM BANKRUPTCY ATTORNEY Performed at: ??02 - [facility] [place] [address] [place], [place] ??[id number] Core Drill Operator Helper: Berlin Quesada PhD, Phone: ??[phone] Specimen Comment: A courtesy copy of this report has been sent to Specimen Comment: [facility]/SIHF. Carla Almaraz MD LAB - CHEMISTRY ARVIN COLE Performing Organization Address City/[facility]/ZIP Co de Phone Number [facility] ([place]) * (ABNORMAL) HISTONE ANTIBODY (04/05/2016 11:42 AM BANKRUPTCY ATTORNEY) Histone Antibody 2.5(H) 0.0 - 0.9 Units [facility] ([place]) Comment: ? Negative ?<1.0 ? Weak Positive ?1.0 - 1.5 ? Moderate Positive ??1.6 - 2.5 ? Strong Positive ? >2.5 Blood specimen (specimen) BLOOD SPECIMEN / Unknown 04/05/2016 11:42 AM BANKRUPTCY ATTORNEY 04/05/2016 Narrative [facility]) - 04/09/2016 1:11 PM BANKRUPTCY ATTORNEY Performed at: ??03 - [address] ??[id number] Core Drill Operator Helper: Amandeep Jesus MD, Phone: ??[phone] Specimen Comment: A courtesy copy of this report has been sent to Specimen Comment: [facility]/SIF. Carla Rufina BELTRAN LAB - CHEMISTRY ARVIN COLE [facility]) * VITAMIN D 25-HYDROXY (04/05/2016 11:42 AM BANKRUPTCY ATTORNEY) Vitamin D, 25 Hydroxy 34.3 30.0 - 100.0 ng/mL [facility] ([place]) Comment: Vitamin D deficiency has been defined by the [place] of Medicine and an Endocrine Society practice guideline as a level of serum 25-OH vitamin D less than 20 ng/mL (1,2). The Endocrine Society went on to further define vitamin D insufficiency as a level between 21 and 29 ng/mL (2). 1. IOM ([place] of Medicine). 2010. Dietary reference ?? intakes for calcium and D. [place]: The ?? National Academies Press. 2. Destiny MF, Awilda MANRIQUE, Lui BECKMAN, et al. ?? Evaluation, treatment, and prevention of vitamin D ?? deficiency: an Endocrine Society clinical practice ?? guideline. JCEM. 2010; 96(7):1911-30. Blood specimen (specimen) BLOOD SPECIMEN / Unknown 04/05/2016 11:42 AM BANKRUPTCY ATTORNEY 04/05/2016 Narrative [facility] ([place]) - 04/09/2016 1:11 PM BANKRUPTCY ATTORNEY Performed at: ??01 - [facility] [address] ??[id number] Core Drill Operator Helper: Ced Gutierrez PhD, Phone: ??[phone] Specimen Comment: A courtesy copy of this report has been sent to Specimen Comment: [facility]/SIF. Carla Rufina BELTRAN LAB - CHEMISTRY ARVIN COLE [facility] ([place]) * (ABNORMAL) CYCLIC CITRUL PEPTIDE AB IGG (CCP) (04/05/2016 11:42 AM BANKRUPTCY ATTORNEY) Cyclic Citrullinated Peptide Antibody >250(H) 0 - 19 units [facility] ([place]) Comment: ?Negative ? <20 ?Weak positive ?20 - 39 ?Moderate positive ??40 - 59 ?Strong positive ?>59 Blood specimen (specimen) BLOOD SPECIMEN / Unknown 04/05/2016 11:42 AM BANKRUPTCY ATTORNEY 04/05/2016 Narrative [facility] (BEAKER) - 04/09/2016 1:11 PM BANKRUPTCY ATTORNEY Performed at: ??03 - [facility] [address] ??[id number] Core Drill Operator Helper: Amandeep Jesus MD, Phone: ??[phone] Specimen Comment: A courtesy copy of this report has been sent to Specimen Comment: [facility]/SIHF. Carla Almaraz MD LAB - CHEMISTRY ARVIN COLE Performing Organization Address [facility]/ZIP Co de Phone Number [facility] * ERYTHROCYTE SEDIMENTATION RATE (04/05/2016 11:42 AM BANKRUPTCY ATTORNEY) Pathologist [facility] Erythrocyte Sedimentation Rate Westergren 17 0 - 32 mm/hr [facility] Blood specimen (specimen) BLOOD SPECIMEN / Unknown 04/05/2016 11:42 AM BANKRUPTCY ATTORNEY 04/05/2016 Narrative [facility] (BEAKER) - 04/09/2016 1:11 PM BANKRUPTCY ATTORNEY Performed at: ??01 - [facility] [address] ??[id number] Core Drill Operator Helper: Ced Gutierrez PhD, Phone: ??[phone] Specimen Comment: A courtesy copy of this report has been sent to Specimen Comment: [facility]/SIHF. Carla Almaraz MD LAB - HEMATOLOGY ORD ERABLES Performing Organization Address City/[facility]/ZIP Co de Phone Number [facility] (BEAKER) * (ABNORMAL) CBC W AUTO DIFFERENTIAL (04/05/2016 11:42 AM BANKRUPTCY ATTORNEY) WBC 12.3(H) 3.4 - 10.8 x10E3/uL [facility] (BEAKER) RBC 4.78 3.77 - 5.28 x10E6/uL [facility] (BEAKER) Hemoglobin 13.9 11.1 - 15.9 g/dL [facility] Hematocrit 43.4 34.0 - 46.6 % [facility] (BEAKER) MCV 91 79 - 97 fL [facility] (BEAKER) MCH 29.1 26.6 - 33.0 pg [facility] (BEAKER) MCHC 32.0 31.5 - 35.7 g/dL [facility] (BEAKER) RDW-CV 13.7 12.3 - 15.4 % [facility] (BEAKER) Platelet 386(H) 150 - 379 x10E3/uL [facility] (BEAKER) Neutrophils % 72 % [facility] (BEAKER) Lymphocytes % 19 % [facility] (BEAKER) Monocytes % 7 % [facility] (BEAKER) Eosinophils % 1 % [facility] (BEAKER) Basophil % 1 % [facility] (BEAKER) Neutrophils Absolute 8.8(H) 1.4 - 7.0 x10E3/uL [facility] (BEAKER) Lymphocyte Absolute Manual 2.3 0.7 - 3.1 x10E3/uL [facility] (BEAKER) Monocytes Absolute 0.9 0.1 - 0.9 x10E3/uL [facility] (BEAKER) Eosinophils Absolute Manual 0.2 0.0 - 0.4 x10E3/uL [facility] (BEAKER) Basophil Absolute Manual 0.1 0.0 - 0.2 x10E3/uL [facility] (BEAKER) Immature Granulocytes % 0 % [facility] (BEAKER) Immature Granulocytes absolute 0.0 0.0 - 0.1 x10E3/uL [facility] (BEAKER) Blood specimen (specimen) BLOOD SPECIMEN / Unknown 04/05/2016 11:42 AM BANKRUPTCY ATTORNEY 04/05/2016 Narrative [facility] (BEAKER) - 04/09/2016 1:11 PM BANKRUPTCY ATTORNEY Performed at: ??01 - [facility] [address] ??[id number] Core Drill Operator Helper: Ced Gutierrez PhD, Phone: ??[phone] Specimen Comment: A courtesy copy of this report has been sent to Specimen Comment: [facility]/SIF. Carla Pepmueller MD LAB - HEMATOLOGY ORD ERABLES [facility] (BEAKER) * COMPREHENSIVE METABOLIC PANEL (04/05/2016 11:42 AM BANKRUPTCY ATTORNEY) Glucose 82 65 - 99 mg/dL [facility] (BEAKER) BUN 7 6 - 20 mg/dL [facility] (BEAKER) Creatinine 0.87 0.57 - 1.00 mg/dL [facility] (BEAKER) eGFR non- 85 >59 mL/min/1.7 3 [facility] (BEAKER) eGFR 98 >59 mL/min/1.7 3 [facility] (BEAKER) BUN/Creatinine Ratio 8 8 - 20 [facility] (BEAKER) Sodium 140 134 - 144 mmol/L [facility] (BEAKER) Potassium 4.1 3.5 - 5.2 mmol/L [facility] (BEAKER) Chloride 101 96 - 106 mmol/L [facility] (BEAKER) CO2 22 18 - 29 mmol/L [facility] (BEAKER) Calcium 9.1 8.7 - 10.2 mg/dL [facility] (BEAKER) Protein Total 7.3 6.0 - 8.5 g/dL [facility] (BEAKER) Albumin 4.0 3.5 - 5.5 g/dL [facility] (BEAKER) Globulin Total 3.3 1.5 - 4.5 g/dL [facility] (BEAKER) Albumin/Globulin Ratio 1.2 1.1 - 2.5 [facility] (BEAKER) Comment: Effective May 03, 2016 the reference interval ??for A/G Ratio will be changing to: ? Age ?Male ?Female ?0 - ??7 days ? 1.1 - 2.3 ? 1.1 - 2.3 ?8 - 30 days ? 1.2 - 2.8 ? 1.2 - 2.8 ?1 - ??6 months ? 1.3 - 3.6 ? 1.3 - 3.6 ?? 7 months - ??5 years ?1.5 - 2.6 ? 1.5 - 2.6 ? > 5 years ?1.2 - 2.2 ? 1.2 - 2.2 Bilirubin Total 0.4 0.0 - 1.2 mg/dL [facility] (BEAKER) Alkaline Phosphatase 60 39 - 117 IU/L [facility] (BEAKER) AST 14 0 - 40 IU/L [facility] (BEAKER) ALT 7 0 - 32 IU/L [facility] (BEAKER) Blood specimen (specimen) BLOOD SPECIMEN / Unknown 04/05/2016 11:42 AM BANKRUPTCY ATTORNEY 04/05/2016 Narrative [facility] (BEAKER) - 04/09/2016 1:11 PM BANKRUPTCY ATTORNEY Performed at: ??01 - [facility] [address] ??[id number] Core Drill Operator Helper: Ced Gutierrez PhD, Phone: ??[phone] Specimen Comment: A courtesy copy of this report has been sent to Specimen Comment: [facility]/SIF. Carla Rufina BELTRAN LAB - CHEMISTRY ARVIN COLE [facility] (BEAKER) Care Teams Pigment Supplier Relationship Specialty Start Date End Date Balbina Calderon MD [address] [place] [phone] PCP - General 10/14/15
--- OUTSIDE RECORDS SUMMARY | 2024-02-06 18:54 | XMS_ITS | Encounter Summary ---
Author Organization [employer] [facility] Care Team Providers Care Tire Vulcanizer Name Role Phone Balbina Calderon MD Primary Care Provider Encounter Details Date Type Department Care Team (Latest Contact Info) Description 10/14/2020 Travel Social History Tobacco Use Types Packs/Day Years Used Date Smoking Tobacco: Never Smokeless Tobacco: Never Alcohol Use Standard Drinks/Week Comments Not Currently 0 (1 standard drink = 0.6 oz pur e alcohol) Sexually Active Control Partners Comments Not Currently Comments No Sex and Gender Information Value Date Recorded Sex Assigned at Not on file Legal Sex Female 1:37 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 No / Unsure 10/14/2020 11:29 AM CDT documented as of this encounter Plan of Treatment Not on file documented as of this encounter Visit Diagnoses Not on filedocumented in this encounter Care Teams Tire Vulcanizer Relationship Specialty Start Date End Date Balbina Calderon MD [address] [place] [address] PCP - General Internal Medicine 01/02/20 documented as of this encounter
--- OUTSIDE RECORDS SUMMARY | 2024-02-06 18:54 | XMS_ITS | Encounter Summary ---
Author Organization [facility] Address [address] [place] [address] Phone Care Team Providers Care Allergist/Immunologist Name Role Phone Balbina Calderon MD Primary Care Provider Yair Vickers MD Unavailable Norma Durbin MD Unavailable [phone] Dom Hilliard MD Unavailable [phone] Reason for Visit * Reason Comments Medication Refill Encounter Details Date Type Department Care Team (Late st Contact Info) Description 01/30/2021 Refill [facility] - Gastroenterology [facility] [address] [place] [id number] Diana Gao, [facility] [address] [place] [address] Medication Refill Social History Tobacco Use Types Packs/Day Years Used Date Smoking Tobacco: Never Smokeless Tobacco: Never Alcohol Use Standard Drinks/Week Comments Not Currently 0 (1 standard drink = 0.6 oz pur e alcohol) Sexually Active Control Partners Comments Not Currently Comments No Sex and Gender Information Value Date Recorded Sex Assigned at Not on file Legal Sex Female 1:37 PM REGIONAL BUSINESS MANAGER Gender Identity Not on file Sexual Orientation Not on file documented as of this encounter Miscellaneous Notes * Telephone Encounter - Kaleigh Cerna RN - 01/30/2021 12:50 PM REGIONAL BUSINESS MANAGER Pharmacy requesting refill of: Requested Prescriptions Pending Prescriptions Disp Refills ??? balsalazide (COLAZAL) 750 MG Capsule [Pharmacy Med Name: *BALSALAZIDE 750MG] 180 Capsule 0 Sig: TAKE THREE CAPSULES BY MOUTH ONCE DAILY Last fill: 12/02/2020 for 180 caps Patients last OV with GI: 10/14/2020 Next Office Visit with GI: None scheduled. Medication failed protocol, balsalazide order pended, please review. 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
--- OUTSIDE RECORDS SUMMARY | 2024-02-06 18:54 | XMS_ITS | Encounter Summary ---
Author Organization [facility] Address [address] [place] [address] Phone Care Team Providers Care Pain Medicine Physician Name Role Phone Balbina Calderon MD Primary Care Provider Yair Vickers MD Unavailable Encounter Details Date Type Department Care Team (Late st Contact Info) Description 12/17/2021 Telephone [facility] - Gastroenterology - [place] [address] [place] [address] Diana Gao, [facility] [address] [place] [address] Social History Tobacco Use Types Packs/Day Years Used Date Smoking Tobacco: Never Smokeless Tobacco: Never Alcohol Use Standard Drinks/Week Comments Not Currently 0 (1 standard drink = 0.6 oz pur e alcohol) Sexually Active Control Partners Comments Not Currently Comments No Sex and Gender Information Value Date Recorded Sex Assigned at Not on file Legal Sex Female 1:37 PM CATERING COORDINATOR Gender Identity Not on file Sexual Orientation Not on file documented as of this encounter Miscellaneous Notes * Telephone Encounter - Genesis Andrade - 12/17/2021 8:23 AM CDT Patient called and said she is waiting for her insurance to change in Feb 2022 so she can see her line server. She will then call and make appt for the colonoscopy. documented in this encounter Plan of Treatment Not on file documented as of this encounter Visit Diagnoses Not on filedocumented in this encounter Care Teams Pain Medicine Physician Relationship Specialty Start Date End Date Balbina Calderon MD [address] [place] [address] PCP - General Internal Medicine 01/02/20 Yair Vickers MD [address] [facility] [address] [place] [address] Consulting Physician Cardiovascular Disease - Cardiology 08/28/21 documented as of this encounter
--- OUTSIDE RECORDS SUMMARY | 2024-02-06 18:54 | XMS_ITS | Encounter Summary ---
Author Organization [facility] Address [address] [place] [address] Phone Care Team Providers Care Advertising Specialist Name Role Phone Balbina Calderon MD Primary Care Provider Encounter Details Date Type Department Care Team (Late st Contact Info) Description 12/09/2020 Telephone [facility] - Gastroenterology [facility] [address] [place] [address] Diana Gao PAC [address] [place] [address] Social History Tobacco Use Types Packs/Day Years Used Date Smoking Tobacco: Never Smokeless Tobacco: Never Alcohol Use Standard Drinks/Week Comments Not Currently 0 (1 standard drink = 0.6 oz pur e alcohol) Sexually Active Control Partners Comments Not Currently Comments No Sex and Gender Information Value Date Recorded Sex Assigned at Not on file Legal Sex Female 1:37 PM HEAVY EQUIPMENT SERVICE MANAGER Gender Identity Not on file Sexual Orientation Not on file documented as of this encounter Miscellaneous Notes * Telephone Encounter - Jody Ogden - 12/09/2020 10:56 AM CDT Pt made aware of results, pt had no questions at this time. * Telephone Encounter - Diana Gao PAC - 12/09/2020 8:15 AM CDT Please advise her BMP and CBC are essentially normal. documented in this encounter Plan of Treatment Not on file documented as of this encounter Visit Diagnoses Not on filedocumented in this encounter Care Teams Advertising Specialist Relationship Specialty [place] [address] [place] [id number] PCP - General Internal Medicine 01/02/20 documented as of this encounter
--- OUTSIDE RECORDS SUMMARY | 2024-02-06 18:54 | XMS_ITS | Encounter Summary ---
Author Organization [facility] Address [address] [place] [address] Phone Care Team Providers Care Commercial Title Examiner Name Role Phone Balbina Calderon MD Primary Care Provider Reason for Visit * Reason Comments Colitis Gastrointestinal Problem New Patient * Consult, Test & Initiate Treatment (Routine) - Closed Specialty Diagnoses / Procedures Referred By Contact Referred To Contact Gastroenterology Diagnoses Noninfective gastroenteritis and colitis, unspecified Procedures OFFICE/OUTPT VISIT,CONOR HARE IV, Oladele Oladotun, MD [address] [place] [address] Phone: tel:[phone] fax: [facility] - Gastroenterology - [address] [place] [address] Phone: tel: fax: Referral ID Status Reason Start Date Expiration Date Visits Re quested Visits Authorized [id number] Closed 1 1 Encounter Details Date Type Department Care Team (Latest Contact Info) Description 01/28/2020 3:00 PM PAINTER TOUCH UP Office Visit [facility] - Gastroenterology - [address] [place] [address] Diana Gao, PAC [address] [place], [place] [id number] 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); Polyp of colon, unspecified part of colon, unspecified type; Gastroesophageal reflux disease, unspecified whether esophagitis present Discharge Disposition: Discharged to home or Selfcare Social History Tobacco Use Types Packs/Day Years Used Date Smoking Tobacco: Never Smokeless Tobacco: Never Tobacco Cessation:Counseling Given: No Alcohol Use Standard Drinks/Week Comments Not Currently 0 (1 standard drink = 0.6 oz pur e alcohol) Sexually Active Control Partners Comments Not Currently Comments No Sex and Gender Information Value Date Recorded Sex Assigned at Not on file Legal Sex Female 1:37 PM PAINTER TOUCH UP Gender Identity Not on file Sexual Orientation Not on file COVID-19 Exposure Response Date Recorded In the last month, have you been in contact with someone who was confirmed or suspected to have Coronavirus / COVID-19? No / Unsure 01/28/2020 3:08 PM PAINTER TOUCH UP documented as of this encounter Last Filed Vital Signs Vital Sign Reading Time Taken Comments Blood Pressure 174/98 01/28/2020 3:18 PM PAINTER TOUCH UP Pulse 98 01/28/2020 3:18 PM PAINTER TOUCH UP Temperature 36.1 ??C (97 ??F) 01/28/2020 3:18 PM PAINTER TOUCH UP Respiratory Rate 24 01/28/2020 3:18 PM PAINTER TOUCH UP Oxygen Saturation 100% 01/28/2020 3:18 PM PAINTER TOUCH UP Inhaled Oxygen Concentration - - Weight 104.8 kg (231 lb) 01/28/2020 3:18 PM PAINTER TOUCH UP Height 182.9 cm (6') 01/28/2020 3:18 PM PAINTER TOUCH UP Body Mass Index 31.33 01/28/2020 3:18 PM PAINTER TOUCH UP documented in this encounter Patient Instructions * Patient Instructions* Diana Gao PAC - 01/28/2020 3:00 PM PAINTER TOUCH UP Continue current therapy Natural fibers: all bran/ raisin bran/ fiber one/ oats Fruits such as apples/ pears/ prunes and juices of same may stimulate bowels Bananas can cause constipation Add generic benefiber daily to help regulate your system, may use up to 3 times a day Probiotic-highest colony count you can afford to purchase on a routine basis If no BM in 3 days, may use Miralax as directed (no more than 5 x per day) or milk of magnesia 2 tbsp at bedtime Please arrive 15 minutes prior to all appointments To continue to provide excellent patient care, you may receive a survey regarding your visit today.To help us serve you better, please complete and return. These surveys are completely anonymous. If you have any concerns/ questions regarding today's visit please call. TER TOUCH UP documented in this encounter Progress Notes * Diana Gao PAC - 01/28/2020 3:00 PM CST PROBLEM LIST: Rossy Sauceda is a . 44 y.o. female who presents with Chief Complaint Patient presents with ??? Colitis ??? Gastrointestinal Problem ??? New Patient . 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 Polyp of colon, unspecified part of colon, unspecified type Gastroesophageal reflux disease, unspecified whether esophagitis present Other orders - Discontinue: balsalazide (COLAZAL) 750 MG Capsule - pantoprazole (PROTONIX) 40 MG Tablet Delayed Response; pantoprazole 40 mg tablet,delayed release - metoprolol tartrate (LOPRESSOR) 25 MG Tablet - Norethin Daniel-Eth Estrad-FE (03/12 PO); Take by mouth. - Fluticasone-Salmeterol (ADVAIR DISKUS IN); take by inhalation. - Albuterol Sulfate (PROAIR HFA IN); take by inhalation. HPI/ ROS: NPE; previous GI has retired. Reports hx ulcerative proctitis reports currently well controlled. Last colonoscopy 02/2018-reports was normal. EGD was done some years before that she is unsure of when. Also has a history of GERD which is well controlled with current therapy. Overall offersno complaints at this time. Wishes to establish. GENERAL: Denies fever/ chills/ weight loss/ malaise/ fatigue/ aches/ night sweats. HEENT: Denies headache/sore throat/hoarseness/difficulty swallowing. NECK: Denies neck pain/ stiffness/ swelling/ masses. LYMPH NODES: Denies enlargement/ swelling/ tenderness. CARDIOVASCULAR: Denies chest pain/ pressure/ heaviness/ tightness/ palpitations/racing heart/ irregular or skipping heart beats PULMONARY: Denies cough/ sob/ wheezing/ dyspnea/ orthopnea. GI: Normal appetite. Denies heartburn/reflux/ abdominal pain/ nausea/ vomiting/ constipation/ diarrhea/ mucus or blood in stools. MUSCULOSKELETAL: Denies back/ muscle/ joint pain SKIN: Denies rash/ itching/ lesions. Denies changes to hair/ nails. ALLERGIES: No Known Allergies MEDICATIONS: Current Outpatient Medications Medication Sig Dispense Refill ??? Albuterol Sulfate (PROAIR HFA IN) take by inhalation. ??? balsalazide (COLAZAL) 750 MG Capsule Take 1 Cap by mouth 2 times daily. 180 Cap 1 ??? Fluticasone-Salmeterol (ADVAIR DISKUS IN) take by inhalation. ??? metoprolol tartrate (LOPRESSOR) 25 MG Tablet ??? Norethin Daniel-Eth Estrad-FE (03/12 PO) Take by mouth. ??? pantoprazole (PROTONIX) 40 MG Tablet Delayed Response pantoprazole 40 mg tablet,delayed release No current facility-administered medications for this visit. PMS/H: Past Medical History Positives Diagnosis Date ??? Abnormal heart rate ??? Asthma ??? Hypertension ??? UC (ulcerative colitis) (HCC) Past Surgical History: Procedure Laterality Date ??? APPENDECTOMY SOCIAL: Social history reviewed and updated as appropriate. FAMILY HX: Family History Problem Relation Age of Onset ??? Congenital Heart Disease Mother ??? Chronic Obstructive Pulmonary Disease Mother ??? Crohn's Disease Sister ??? Lung Cancer Maternal Grandmother VITAL SIGNS: Vitals: 01/28/20 1518 BP: (!) 174/98 Pulse: 98 Resp: 24 Temp: 97 ??F (36.1 ??C) SpO2: 100% Weight: 231 lb (104.8 kg) Height: 6' (1.829 m) GENERAL EXAM: GENERAL:Well developed, well nourished, in no acute distress. AAO x3. Cooperative. HEENT:Normocephalic. PERRLA. Nonicteric. NECK:Supple/ non tender/ full ROM LYMPH NODES:No adenopathy. CARDIOVASCULAR:RRR/ S1S2/ No m/g/c/r. PULMONARY: Respirations easy and regular. Breath sounds clear bilaterally. No rhonchi/ rales/ wheezes. GI: Abdomen soft, nondistended. No tenderness, rebound, guarding or masses. No hepatosplenomegaly. Bowel sounds normoactive. MUSCULOSKELETAL: No CVA tenderness. Full ROM all extremities. No tenderness/ swelling/ crepitus. SKIN: General-warm, pink and dry. No rashes/ lesions. PSYCHIATRIC:Euthymic. Affect congruent with mood. Normal thought process. Medication changes/ treatment plan reviewed. Risks and benefits discussed. Expressed understanding. Patient Instructions Continue current therapy Natural fibers: all bran/ raisin bran/ fiber one/ oats Fruits such as apples/ pears/ prunes and juices of same may stimulate bowels Bananas can cause constipation Add generic benefiber daily to help regulate your system, may use up to 3 times a day Probiotic-highest colony count you can afford to purchase on a routine basis If no BM in 3 days, may use Miralax as directed (no more than 5 x per day) or milk of magnesia 2 tbsp at bedtime Please arrive 15 minutes prior to all appointments To continue to provide excellent patient care, you may receive a survey regarding your visit today.To help us serve you better, please complete and return. These surveys are completely anonymous. If you have any concerns/ questions regarding today's visit please call. Return in about 6 months (around 07/28/2020) for Ulcerative proctitis. TER TOUCH UP documented in this encounter Miscellaneous Notes * Addendum Note - Diana Gao PAC - 01/28/2020 3:00 PM CSTAddended by: DIANA GAO on: 01/29/2020 07:41 AM Modules accepted: Orders TER TOUCH UP documented in this encounter Plan of Treatment Not on file documented as of this encounter Visit Diagnoses Diagnosis 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)- Primary Polyp of colon, unspecified part of colon, unspecified type Gastroesophageal reflux disease, unspecified whether esophagitis present documented in this encounter Care Teams Commercial Title Examiner Relationship Specialty Start Date End Date Balbina Calderon MD [address] [place] [address] PCP - General Internal Medicine 01/02/20 documented as of this encounter
--- OUTSIDE RECORDS SUMMARY | 2024-02-06 18:54 | XMS_ITS | Encounter Summary ---
Author Organization [facility] Address [address] [place] [address] Phone Care Team Providers Care Auto Striper Name Role Phone Balbina Calderon MD Primary Care Provider Yair Vickers MD Unavailable [phone] Norma Durbin MD Unavailable [phone] Reason for Referral * Radiology Services (Routine) - Closed Specialty Diagnoses / Procedures Referred By Coty hester Referred To Contact Radiology Procedures GI IMAGING - COLONOSCOPY Norma Durbin MD [address] [place] [address] Phone: tel: fax: Referral ID Status Reason Start Date Expiration Date Visits Re quested Visits Authorized [id number] Closed 07/12/2022 1 1 Reason for Visit * Auth/Cert (Routine) Specialty Diagnoses / Procedures Referred By Coty hester Referred To Contact Diagnoses ULCERATIVE COLITIS Procedures COLONOSCOPY Norma Durbin MD [address] [place] [address] Phone: tel: fax: Referral ID Status Reason Start Date Expiration Date Visits Re quested Visits Authorized [id number] 1 1 Encounter Details Date Type Department Care Team (Latest Contact Info) Description 07/12/2022 10:54 AM CDT - 07/12/2022 1:04 PM CDT Hospital Encounter [facility] Preop/Pacu II [address] [place] [id number] Norma Durbin MD [address] [place] [address] Discharge Disposition: Discharged to home or Selfcare Social History Tobacco Use Types Packs/Day Years Used Date Smoking Tobacco: Never Smokeless Tobacco: Never Tobacco Cessation:Counseling Given: Not Answered Alcohol Use Standard Drinks/Week Comments Not Currently 0 (1 standard drink = 0.6 oz pur e alcohol) Sexually Active Control Partners Comments Not Currently Comments No Sex and Gender Information Value Date Recorded Sex Assigned at Not on file Legal Sex Female 1:37 PM [employer] Gender Identity Not on file Sexual Orientation Not on file COVID-19 Exposure Response Date Recorded In the last 10 days, have yo u been in contact with someone who was confirmed or suspected to have Coronavirus/COVID-19? No / Unsure 07/12/2022 10:54 AM CDT documented as of this encounter Last Filed Vital Signs Vital Sign Reading Time Taken Comments Blood Pressure 123/80 07/12/2022 12:50 PM CDT Pulse 62 07/12/2022 12:50 PM CDT Temperature 36 ??C (96.8 ??F) 07/12/2022 12:50 PM CDT Respiratory Rate 16 07/12/2022 12:50 PM CDT Oxygen Saturation 100% 07/12/2022 12:50 PM CDT Inhaled Oxygen Concentration - - Weight 107.5 kg (237 lb) 06/22/2022 3:00 PM CDT Height 177.8 cm (5' 10 ) 06/22/2022 3:00 PM CDT Body Mass Index 34.01 06/22/2022 3:00 PM CDT documented in this encounter Discharge Instructions * Discharge Instructions* Claudette Monte RN - 07/12/2022 12:22 PM CDT You had a colonoscopy today. Dr. NASEER found: Findings: Two areas including periappendiceal area and cecum as well as a small segment in the sigmoid appeared inflamed. Small erosions and ground sending appearance was noted. Biopsies obtained separately. Rest of the colon mucosa looked normal and healthy. Separate biopsies were obtained from ascending colon transverse colon descending colon and rectum. In essence a periappendiceal patch of inflammation and a small patch in sigmoid appeared inflamed with rest of the colon looking normal. Recommendations: Check biopsies. Continue current medications. Follow-up in the GI clinic in 3-4 months. BIOPSY/BIOPSIES TAKEN. CALL OFFICE FOR BIOPSY RESULTS IN 2 WEEKS AT [phone], WORK, OPERATE MACHINERY OR USE POWER TOOLS UNTIL DAY AFTER PROCEDURE. NO ALCOHOL BEVERAGES TODAY FOLLOWING DAY: RETURN TO FULL ACTIVITY, INCLUDING WORK, UNLESS INSTRUCTED OTHERWISE. Call doctor's office ([phone]) or go to Emergency room for: Difficulty Breathing, Headache Or Visual Disturbances Persistent Dizziness Or Light-Headedness Persistent Nausea and Vomiting Temperature greater then 100.0 Significant abdominal pain, chest pain, or bleeding. Here at [facility] we strive to provide excellent care to each of our patients, along with an easy transition between departments, starting with registration until discharge. Through our excellent care and services, we hope that you would recommend our services to your family and friends. You will receive a follow-up phone call in 24-48 hours after your procedure to see how you are doing. This gives our patients the opportunity to recognize any members from our team, from housekeepers, to nurses, to physicians, that you felt gave you excellent service as well as any suggestions for improvement. We hope you found our facility clean and our mission partners courteous. You may also receiving a survey in the mail. We would appreciate it if you could complete the form and return it. A self addressed pre-paid envelope is provided. Thank you for choosing [facility]. documented in this encounter Medications at Time of Discharge Albuterol Sulfate (PROAIR HFA IN) take by inhalation. Fluticasone-Salme terol (ADVAIR DISKUS IN) take by inhalation 2 times daily. Tabby 1.5 1.5-30 MG-MCG Tablet Take 1.5 mg by mouth. 04/20/2022 metoprolol tartrate (LOPRESSOR) 25 MG Tablet 2 times daily. 01/08/2020 Norethin Daniel-Eth Estrad-FE (03/12 PO) Take by mouth. pantoprazole (PROTONIX) 40 MG Tablet Delayed Response pantoprazole 40 mg tablet,delayed release balsalazide (COLAZAL) 750 MG CapsuleIndication s: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) TAKE THREE CAPSULES BY MOUTH ONCE DAILY 270 Capsule 1 03/23/2022 3 documented as of this encounter H&P Notes * Norma Durbin MD - 07/12/2022 11:45 AM CDT HISTORY AND PHYSICAL Norma Durbin MD Date of Exam: 07/12/2022 Date of Admission: 07/12/2022 Rossy Sauceda, (date of 1975) is a 47 y.o. at hospital day: (LOS: 51 minutes) Assessment : Question of left-sided ulcerative colitis. Previous colonoscopy was normal. Sister hadIBD and she was scared getting off of medication. He has no symptoms. For details please see the recent office visit. Problem List: Patient Active Problem List Diagnosis ??? 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) ??? Polyp of colon ??? Gastroesophageal reflux disease Plan: Colonoscopy is planned Chief Complaints: No complaints at this time HPI: History as noted in the chart. Past Medical History: has a past medical history of Abnormal heart rate, Asthma, Hypertension, and UC (ulcerative colitis) (HCC). Past Surgical History: has a past surgical history that includes appendectomy. Medications: Current Facility-Administered Medications: ??? lactated ringers infusion Allergies: No Known Allergies Social History: reports that she has never smoked. She has never used smokeless tobacco. She reports that she does not currently use alcohol. She reports that she does not currently use drugs. Family History: family history includes Cancer in her maternal aunt, maternal aunt, and maternal grandmother; Chronic Obstructive Pulmonary Disease in her mother; Congenital Heart Disease in her mother; Crohn's Disease in her sister; Lung Cancer in her maternal grandmother. ROS: Pertinent items are noted in history of present illness. Physical Exam: BP 154/90 Pulse 84 Temp 96.8 ??F (36 ??C) (Other (See Comment)) Resp 16 Ht 5' 10 (1.778 m) Wt 237 lb (107.5 kg) SpO2 100% BMI 34.01 kg/m?? General appearance: alert, no distress, cooperative, appears stated age Lungs: no acute distress, clear to auscultation bilaterally Heart: regular rate and rhythm, S1, S2 normal, no murmur, click, rub or gallop Abdomen: soft, non-tender. Bowel sounds normal. No masses, no organomegaly Labs: Lab Results Component Value Date WBC 11.83 05/01/2022 HEMOGLOBIN 12.9 05/01/2022 HEMATOCRIT 41.6 05/01/2022 PLATELETCNT 340 05/01/2022 MCV 91.4 05/01/2022 No results found for: INR No components found for: LFT No components found for: BMP No results found. I have explained the risks, benefits, and alternatives of the procedure to the patient and family. They wish to proceed with procedure. Norma Durbin MD 07/12/2022 11:45 AM CDT documented in this encounter OR Notes * OR Surgeon - Norma Durbin MD - 07/12/2022 12:16 PM CDT COLONOSCOPY Rossy Sauceda 1975 47 y.o. female 07/12/2022 10:54 AM Date of Procedure: 07/12/2022 Pre-operative Diagnosis: ULCERATIVE COLITIS Post-operative Diagnosis: COLONOSCOPY-deepa appendicile inflammed patch biopsy- normal ascending colon biopsy-transverse colon biopsy-descending colon biopsy- sigmoid colon inflammed patch biopsy-normalrectal biopsy Procedure(s): Procedure(s): COLONOSCOPY-deepa appendicile inflammed patch biopsy-normal ascending colon biopsy-transverse colon biopsy-descending colon biopsy-sigmoid colon inflammed patch biopsy-normal rectal biopsy Surgeon: Norma Durbin MD Anesthesia: Anesthesia Specimens: ID Type Source Tests Collected by Time A : deepa appendicile inflammed patch biopsy Tissue Colon PATHOLOGY SURGICAL Norma Durbin MD 07/12/2022 1205 B : ascending colon biopsy Tissue Colon PATHOLOGY SURGICAL Norma Durbin MD 07/12/2022 1210 C : transverse colon biopsy Tissue Colon PATHOLOGY SURGICAL Norma Durbin MD 07/12/2022 1210 D : descending colon biopsy Tissue Colon PATHOLOGY SURGICAL Norma Durbin MD 07/12/2022 1211 E : sigmoid colon inflammed patch biopsy Tissue Colon PATHOLOGY SURGICAL Norma Durbin MD 07/12/2022 1211 F : normal rectal biopsy Tissue Rectum PATHOLOGY SURGICAL Norma Durbin MD 07/12/2022 1215 Estimated Blood Loss: 0 ML Withdrawal time: 16 minutes Preparation: excellent Description: After the risks, benefits and alternatives of the above procedure were explained to the patient, consent is obtained. The patient is brought to the endoscopy suite, monitored, and sedated to maintain a level of comfort. The video colonoscope is introduced into the rectal vault and advanced under direct visualization. Identification of the ileocecal valve, cecum, and transillumination of the right lower quadrant is observed. Paying close attention to the mucosal detail, the colonoscope is withdrawn through the entire length of the colon. Air is removed as the scope is withdrawn. Retroflex view of the anus is also performed. The scope was removed from the patient, who tolerated the procedure well. Recovery occurred in endoscopy, and the patient then transferred to postop in stable condition. Findings: Two areas including periappendiceal area and cecum as well as a small segment in the sigmoid appeared inflamed. Small erosions and ground sending appearance was noted. Biopsies obtained separately. Rest of the colon mucosa looked normal and healthy. Separate biopsies were obtained from ascending colon transverse colon descending colon and rectum. In essence a periappendiceal patch of inflammation and a small patch in sigmoid appeared inflamed with rest of the colon looking normal. Recommendations: Check biopsies. Continue current medications. Follow-up in the GI clinic in 3-4 months. Thank you, for allowing me to participate in the care of your patient. Surgeon: Norma Durbin MD, 07/12/2022, 12:16 PM CDT documented in this encounter Miscellaneous Notes * Plan of Care - Claudette Monte RN - 07/12/2022 11:00 AM CDT Problem: Adult Inpatient Plan of Care Goal: Plan of Care Review Outcome: Ongoing (see interventions/notes) Flowsheets (Taken 07/12/2022 1100) Plan of Care Reviewed With: patient Progress: no change Today's Goal: go home today Outcome Evaluation: patient ready for procedure Does the patient need assistance with discharge and/or transitioning to the next level of care?: No, no needs anticipated Goal: Patient-Specific Goal (Individualized) Outcome: Ongoing (see interventions/notes) Goal: Absence of Hospital-Acquired Illness or Injury Outcome: Ongoing (see interventions/notes) Goal: Optimal Comfort and Wellbeing Outcome: Ongoing (see interventions/notes) Goal: Readiness for Transition of Care Outcome: Ongoing (see interventions/notes) * Interdisciplinary - Miriam Savage RN - 06/22/2022 3:31 PM CDT [facility] GI TEACHING Patient Name: Rossy Sauceda : 1975 [facility]#: [id number] Person Educated Patient Ready to Learn Yes Teaching Method Phone No covid test required The Day of Procedure: Call your physician if your physical condition changes (cold, fever, flu). Do not come to the hospital without first calling your physician. Follow your surgeon's instructions regarding your diet, bowel prep, and medications if applicable. If your have any questions, please contact your surgeon's office. No alcohol and no smoking for 24 hrs prior to procedure if applicable. Wear comfortable, loose fitting clothing. Instruction to leave all jewelry at home including wedding/engagement rings or any body piercing jewelry. Leave all valuables at home. Children ages under 16 must be accompanied by a parent or legal guardian in the hospital at all times. Detailed instructions given for arrival location and parking. Arrive for your procedure as instructed by the [facility]. Go to Registration the morning of the procedure to check in. Arrange for a responsible person to accompany you and drive you home following your procedure. Follow directions regarding which medications to take or hold. It is very important to follow directions on diabetic medication or blood thinners from your surgeon's office. When you come to the hospital only 1 adult over the age of 16 will be allowed to accompany you to the [facility]. No children under the age of 16 will be allowed in the [facility] unless they are the patient. If the patient chooses to bring their children under the age of 16, an adult must accompany those children in the surgery waiting room and cannot leave them unattended. During the flu season: refer to the visitation restriction guidelines implemented during that season if applicable. Fall Prevention Teaching The Day of Surgery: ?? Your safety while you are in the hospital is very important to us. Following surgery, you might be at increased risk for falling for several reasons: ??? -The hospital environment is unfamiliar. It???s not the same as being at home ??? -You may be weaker than you realize. ??? -You may be connected to lines or equipment that can cause you to trip. ??? -You may be on medications that make you drowsy or dizzy. We know this can happen especially with pain medication and anesthesia. ??? We want to partner with you in the hospital to make sure you are safe ??? -Please do not feel hesitant to ask for help while in the hospital. You will -need extra help until you get stronger especially with walking and using the bathroom. ??? -Pay close attention to what the doctors and nurses tell you about your risk of falling. ??? -A fall can mean a longer hospital stay. Also, injuries from a fall can affect your health for the rest of your life. ??? Some things the nurses may do to keep you safe are: ??? -Have you use the call light for help whenever you get out of bed. ??? -Wear non-skid slippers to keep you from slipping on the floors ??? -Use a special belt that wraps around your waist so we can help steady you when you walk ??? -Activate an alarm on your bed so we know if you are getting up in case you forget to use yourcall light ??? -Stay in the bathroom with you in case you become dizzy or light headed Response to Teaching: Verbalizes Understanding Patient assessed for world language teacher during the preop interview and appropriate interventions taken if applicable. documented in this encounter Plan of Treatment Not on file documented as of this encounter Procedures Procedure Name Priority Date/Time Associated Diagnosis Comments PATHOLOGY SURGICAL Routine 07/12/2022 12 :05 PM CDT COLONOSCOPY 07/12/2022 11:44 AM CDT COLONOSCOPY-deepa appendicile inflammed patch biopsy-normal ascending colon biopsy-transverse colon biopsy-descending colon biopsy-sigmoid colon inflammed patch biopsy-normal rectal biopsy Special Needs HCG - Dx UC No covid test POCT URINE HCG () Routine 07/12/2022 11:04 AM CDT GI IMAGING - COLONOSCOPY Routine 07/12/2022 10:59 AM CDT documented in this encounter Results * Pathology Surgical (07/12/2022 12:05 PM CDT) Case Report Surgical Pathology Report ? Case: [id number] ? Authorizing Provider: ??Norma Durbin MD ? Collected: ? 07/12/2022 12:05 PM ? Ordering Location: ? [facility] ? Received: ?07/12/2022 12:32 PM ? [facility] ? Lab Main ? Pathologist: ? Bryant Gallegos, MD ? Specimens: ?? A) - Colon, deepa appendicile inflammed patch biopsy ? B) - Colon, ascending colon biopsy ? C) - Colon, transverse colon biopsy ? D) - Colon, descending colon biopsy ? E) - Colon, sigmoid colon inflammed patch biopsy ? F) - Rectum, normal rectal biopsy ? 07/13/2022 8:41 AM CDT [facility] FINAL DIAGNOSIS A. COLON, PERIAPPENDICEAL INFLAMED PATCH BIOPSY: - MILDLY ACTIVE CHRONIC INFLAMMATORY BOWEL DISEASE WITH CRYPTITIS, AND INCREASED CHRONIC INFLAMMATION. - NEGATIVE FOR GRANULOMAS, VIRAL INCLUSIONS OR PARASITES - NEGATIVE FOR DYSPLASIA B. ASCENDING COLON BIOPSY: - FRAGMENTS OF COLONIC MUCOSA WITH VERTICALLY ORIENTED GLANDS WITHOUT CRYPT ABSCESSES, WITHIN THE SUPERFICIAL MUCOSA THERE IS A LARGE BENIGN LYMPHOID FOLLICLES WITH SLIGHTLY INCREASED NUMBERS OF LYMPHOCYTES, EOSINOPHILS AND PLASMA CELLS. - THERE ARE NO GRANULOMAS OR PARASITIC ORGANISMS IDENTIFIED. - THERE IS NO EVIDENCE OF MALIGNANCY. C. TRANSVERSE COLON: BIOPSY: - FRAGMENT OF BENIGN COLONIC MUCOSA WITHOUT SIGNIFICANT HISTOLOGIC ABNORMALITIES. - NEGATIVE FOR ACUTE INFLAMMATION, GRANULOMAS, CHRONIC ARCHITECTURAL CHANGE, OR DYSPLASIA - NEGATIVE FOR VIRAL INCLUSIONS OR PARASITES - NEGATIVE FOR COLLAGENOUS OR LYMPHOCYTIC COLITIS D. DESCENDING COLON; BIOPSY: - FRAGMENT OF BENIGN COLONIC MUCOSA WITHOUT SIGNIFICANT HISTOLOGIC ABNORMALITIES. - NEGATIVE FOR ACUTE INFLAMMATION, GRANULOMAS, CHRONIC ARCHITECTURAL CHANGE, OR DYSPLASIA - NEGATIVE FOR VIRAL INCLUSIONS OR PARASITES - NEGATIVE FOR COLLAGENOUS OR LYMPHOCYTIC COLITIS E. SIGMOID COLON, INFLAMED PATCH; BIOPSY: - MILDLY ACTIVE CHRONIC INFLAMMATORY BOWEL DISEASE WITH CRYPTITIS, AND INCREASED CHRONIC I INFLAMMATION. - NEGATIVE FOR GRANULOMAS, VIRAL INCLUSIONS OR PARASITES - NEGATIVE FOR DYSPLASIA F. RECTUM, NORMAL RECTAL; BIOPSY: - FRAGMENT OF BENIGN COLONIC MUCOSA WITHOUT SIGNIFICANT HISTOLOGIC ABNORMALITIES. - NEGATIVE FOR ACUTE INFLAMMATION, GRANULOMAS, CHRONIC ARCHITECTURAL CHANGE, OR DYSPLASIA - NEGATIVE FOR VIRAL INCLUSIONS OR PARASITES - NEGATIVE FOR COLLAGENOUS OR LYMPHOCYTIC COLITIS 07/13/2022 8:41 AM CDT [facility] Pre-Operative Diagnosis ULCERATIVE COLITIS 07/13/2022 8:41 AM CDT [facility] Gross Description A. deepa appendicile inflammed patch biopsy The specimen presents in six formalin containers for gross and microscopic examination labeled with the patient's name, Rossy Sauceda. Part A is designated periappendiceal inflamed patch biopsy. The specimen consists of two pieces of light price tissue measuring 0.2 to 0.3 cm in greatest dimension. All submitted cassette A1. B. ascending colon biopsy Part B is designated ascending colon biopsy. The specimen consists of four pieces of light price tissue measuring 0.1 to 0.2 cm in greatest dimension. All submitted cassette B1. C. transverse colon biopsy Part C is designated transverse colon biopsy. The specimen consists of two pieces of light price tissue measuring 0.1 cm in greatest dimension for each. All submitted cassette C1. D. descending colon biopsy Part D is designated descending colon biopsy. The specimen consists of two pieces of light price tissue measuring 0.2 to 0.3 cm in greatest dimension. All submitted cassette D1. E. sigmoid colon inflammed patch biopsy Part E is designated sigmoid colon inflamed patch biopsy. The specimen consists of six pieces of light price tissue measuring 0.1 to 0.3 cm in greatest dimension. All submitted cassette E1. F. normal rectal biopsy Part F is designated normal rectal biopsy. The specimen consists of three pieces of light price tissue measuring 0.1 to 0.3 cm in greatest dimension. All submitted cassette F1. KS/sb 07/13/2022 8:41 AM CDT [facility] Microscopic Description Microscopic examination was performed which supports the final diagnosis. All control tissues stained appropriately. 07/13/2022 8:41 AM CDT [facility] Tissue COLON STRUCTURE / Unknown 07/12/2022 12:05 PM CDT 07/12/2022 12:32 PM CDT Tissue specimen (specimen) COLON STRUCTURE / Unknown 07/12/2022 12:10 PM CDT 07/12/2022 12:32 PM CDT Tissue specimen (specimen) COLON STRUCTURE / Unknown 07/12/2022 12:10 PM CDT 07/12/2022 12:32 PM CDT Tissue specimen (specimen) COLON STRUCTURE / Unknown 07/12/2022 12:11 PM CDT 07/12/2022 12:32 PM CDT Tissue specimen (specimen) COLON STRUCTURE / Unknown 07/12/2022 12:11 PM CDT 07/12/2022 12:32 PM CDT Tissue specimen (specimen) RECTUM STRUCTURE / Unknown 07/12/2022 12:15 PM CDT 07/12/2022 12:32 PM CDT Norma Durbin MD PATHOLOGY/CYTOLOGY ORDERABLES F inal Result [facility] [address] [place] [address] * POCT Urine HCG () (07/12/2022 11:04 AM CDT) POC URINE Negative POC URINE CONTROL Civil Process Server Pass Urine 07/12/2022 11:0 4 AM CDT us Norma Durbin MD POINT OF CARE TESTING (MANUAL) Final Result * GI IMAGING - COLONOSCOPY (07/12/2022 10:59 AM CDT) us Norma Durbin MD IMG DIAGNOSTIC ORDERABLES Final Result documented in this encounter Visit Diagnoses Diagnosis 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)- Primary documented in this encounter Administered Medications Inactive Administered Medications - up to 3 most recent administrations Medication Order MAR Action Action Date Dose Rate Site lactated ringers infusion at 20 mL/hr, Intravenous, CONTINUOUS, Starting on Tue07/12/22 at 1130, Until Tue07/12/22 at 1505, PRE-OP (SURGERY) New Bag 07/12/2022 11:30 AM CDT 20 mL/hr 20 mL/hr documented in this encounter Active and Recently Administered Medications Times are shown in CDT. Continuous Medication Order 07/10/2022 07/11/2022 07/12/2022 lactated ringers infusion at 20 mL/hr, Intravenous, CONTINUOUS, Starting on Tue07/12/22 at 1130, Until Tue07/12/22 at 1505, PRE-OP (SURGERY) 1130 (New Bag - Prov ider: Luzma Stovall RN)1143 (Continued by Anesthesia - Provider: Justus Ojeda APRN, RAW SAMPLER)1215 (Anesthesia Volume Adjustment - Provider: Justus Ojeda APRN, COCO)1238 (Stopped - Provider: Claudette Monte RN) documented in this encounter Care Teams Auto Striper Relationship Specialty [place] [address] [place] [id number] PCP - General Internal Medicine 01/02/20 Yair Vickers MD [facility] [address] [address] Consulting Physician Cardiovascular Disease - Cardiology 08/28/21 Norma Durbin MD [address] [place] [address] Consulting Physician Gastroenterology 04/22/22 documented as of this encounter
--- OUTSIDE RECORDS SUMMARY | 2024-02-06 18:54 | XMS_ITS | Encounter Summary ---
Author Organization [facility] Address [address] [place] [address] Phone Care Team Providers Care Nutrient Management Specialist Name Role Phone Balbina Calderon MD Primary Care Provider Yair Vickers MD Unavailable [phone] Encounter Details Date Type Department Care Team (Late st Contact Info) Description 09/15/2021 Telephone [facility] - G[facility]enterology - [place] [address] [place] [address] Diana Gao, [facility] [address] [place] [address] Social History Tobacco Use Types Packs/Day Years Used Date Smoking Tobacco: Never Smokeless Tobacco: Never Alcohol Use Standard Drinks/Week Comments Not Currently 0 (1 standard drink = 0.6 oz pur e alcohol) Sexually Active Control Partners Comments Not Currently Comments No Sex and Gender Information Value Date Recorded Sex Assigned at Not on file Legal Sex Female 1:37 PM [employer] Gender Identity Not on file Sexual Orientation Not on file COVID-19 Exposure Response Date Recorded In the last 10 days, have yo u been in contact with someone who was confirmed or suspected to have Coronavirus/COVID-19? No / Unsure 08/28/2021 2:39 PM CDT documented as of this encounter Miscellaneous Notes * Telephone Encounter - Jody Ogden - 09/16/2021 9:16 AM CDT Pt made aware via phone * Telephone Encounter - Diana Gao PAC - 09/15/2021 2:48 PM CDT Please advise labs have been were received and reviewed. Essentially stable/normal. * Telephone Encounter - Marcial Caraballo CMA - 09/15/2021 1:46 PM CDT Received labs from [facility]. These were placed on your desk to review documented in this encounter Plan of Treatment Not on file documented as of this encounter Visit Diagnoses Not on filedocumented in this encounter Care Teams Nutrient Management Specialist Relationship Specialty Start Date End Date Balbina Calderon MD [address] [place] [address] PCP - General Internal Medicine 01/02/20 Yair Vickers MD [address] [facility] [address] [place] [address] Consulting Physician Cardiovascular Disease - Cardiology 08/28/21 documented as of this encounter
--- OUTSIDE RECORDS SUMMARY | 2024-02-06 18:54 | XMS_ITS | Encounter Summary ---
Author Organization [facility] Address [address] [place] [address] Phone Care Team Providers Care Blunger Machine Operator Name Role Phone Balbina Calderon MD Primary Care Provider Yair Vickers MD Unavailable Encounter Details Date Type Department Care Team (Late st Contact Info) Description 10/01/2021 Telephone [facility] - Gastroenterology - [place] [address] [place] [address] Diana Gao, [facility] [address] [place] [address] Social History Tobacco Use Types Packs/Day Years Used Date Smoking Tobacco: Never Smokeless Tobacco: Never Alcohol Use Standard Drinks/Week Comments Not Currently 0 (1 standard drink = 0.6 oz pur e alcohol) Sexually Active Control Partners Comments Not Currently Comments No Sex and Gender Information Value Date Recorded Sex Assigned at Not on file 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 * Telephone Encounter - Diana Gao PAC - 10/02/2021 7:47 AM CDT Please advise labs essentially normal. * Telephone Encounter - Marcial Caraballo CMA - 10/01/2021 3:58 PM CDT Received labs from [facility]. These were placed on your desk to review. documented in this encounter Plan of Treatment Not on file documented as of this encounter Visit Diagnoses Not on filedocumented in this encounter Care Teams Blunger Machine Operator Relationship Specialty Start Date End Date Balbina Calderon MD [address] [place] [address] PCP - General Internal Medicine 01/02/20 Yair Vickers MD 2 [facility] [address] [place] [address] Consulting Physician Cardiovascular Disease - Cardiology 08/28/21 documented as of this encounter
--- OUTSIDE RECORDS SUMMARY | 2024-02-06 18:54 | XMS_ITS | Encounter Summary ---
Author Organization [facility] Address [address] [place] [address] Phone Care Team Providers Care Plate Painter Name Role Phone Balbina Calderon MD Primary Care Provider aYir Vickers MD Unavailable [phone] Encounter Details Date Type Department Care Team (Late st Contact Info) Description 03/29/2022 Telephone [facility] - Gastroenterology - [place] [address] [place] [address] Noram Durbin MD [address] [place] [address] Social History Tobacco Use Types Packs/Day Years Used Date Smoking Tobacco: Never Smokeless Tobacco: Never Alcohol Use Standard Drinks/Week Comments Not Currently 0 (1 standard drink = 0.6 oz pur e alcohol) Sexually Active Control Partners Comments Not Currently Comments No Sex and Gender Information Value Date Recorded Sex Assigned at Not on file Legal Sex Female 1:37 PM DE ALCOHOLIZER Gender Identity Not on file Sexual Orientation Not on file documented as of this encounter Miscellaneous Notes * Telephone Encounter - Kaleigh Cerna RN - 03/29/2022 1:14 PM DE ALCOHOLIZER Loren from [facility] calling and asking for Dr. Durbin's NPI and fax number to GI office. Information provided to Loren. ALCOHOLIZER documented in this encounter Plan of Treatment Not on file documented as of this encounter Visit Diagnoses Not on filedocumented in this encounter Care Teams Plate Painter Relationship Specialty Start Date End Date Balbina Calderon MD [address] [place] [address] PCP - General Internal Medicine 01/02/20 Yair Vickers MD 2 [facility] [address] [place] [address] Consulting Physician Cardiovascular Disease - Cardiology 08/28/21 documented as of this encounter
--- OUTSIDE RECORDS SUMMARY | 2024-02-06 18:54 | XMS_ITS | Encounter Summary ---
Author Organization [facility] Care Team Providers Care Nozzle And Sleeve Worker Name Role Phone Balbina Calderon MD Primary Care Provider Yair Vickers MD Unavailable [phone] Norma Durbin MD Unavailable [phone] Encounter Details Date Type Department Care Team (Latest Contact Info) Description 04/22/2022 Travel Social History Tobacco Use Types Packs/Day Years Used Date Smoking Tobacco: Never Smokeless Tobacco: Never Alcohol Use Standard Drinks/Week Comments Not Currently 0 (1 standard drink = 0.6 oz pur e alcohol) Sexually Active Control Partners Comments Not Currently Comments No Sex and Gender Information Value Date Recorded Sex Assigned at Not on file Legal Sex Female 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 No / Unsure 04/22/2022 3:24 PM ELECTRONICS ENGINEERING TECHNICIAN documented as of this encounter Plan of Treatment Not on file documented as of this encounter Visit Diagnoses Not on filedocumented in this encounter Care Teams Nozzle And Sleeve Worker Relationship Specialty Start Date End Date Balbina Calderon MD [address] [place] [address] PCP - General Internal Medicine 01/02/20 Yair Vickers MD 2 [facility] [address] [place] [address] Consulting Physician Cardiovascular Disease - Cardiology 08/28/21 Norma Durbin MD [address] [place] [address] Consulting Physician Gastroenterology 04/22/22 documented as of this encounter
--- OUTSIDE RECORDS SUMMARY | 2024-02-06 18:54 | XMS_ITS | Encounter Summary ---
Author Organization [facility] Address [address] [place] [address] Phone Care Team Providers Care Customer Relations Consultant Name Role Phone Balbina Calderon MD Primary Care Provider Yair Vickers MD Unavailable [phone] Norma Durbin MD Unavailable [phone] Dom Hilliard MD Unavailable [phone] Reason for Visit * Reason Comments Medication Refill Encounter Details Date Type Department Care Team (Late st Contact Info) Description 09/14/2022 Refill [facility] - G[facility]enter[facility] [address] [place] [address] Norma Durbin MD [address] [place] [address] Medication Refill Social History Tobacco Use Types Packs/Day Years Used Date Smoking Tobacco: Never Smokeless Tobacco: Never Alcohol Use Standard Drinks/Week Comments Not Currently 0 (1 standard drink = 0.6 oz pur e alcohol) Sexually Active Control Partners Comments Not Currently Comments No Sex and Gender Information Value Date Recorded Sex Assigned at Not on file Legal Sex Female 1:37 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 balsalazide (COLAZAL) 750 MG Capsule [Pharmacy Med Name: balsalazide 750 mg capsule] 270 Capsule 1 Sig: TAKE THREE CAPSULES BY MOUTH EVERY DAY Last fill: 03/23/2022 Patients last OV with GI: 04/22/2022 Next Office Visit with GI: None scheduled. Medication failed protocol due to no UA on file in the last 12 months. UA and balsalazide order pended, please review. 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
--- OUTSIDE RECORDS SUMMARY | 2024-02-06 18:54 | XMS_ITS | Encounter Summary ---
Author Organization [facility] Address [address] [place] [address] Phone Care Team Providers Care Pilot Plant Operator Helper Name Role Phone Balbina Calderon MD Primary Care Provider Yair Vickers MD Unavailable [phone] Norma Durbin MD Unavailable [phone] Reason for Visit * Auth/Cert (Routine) Specialty Diagnoses / Procedures Referred By Coty t Referred To Contact Diagnoses ULCERATIVE COLITIS Procedures COLONOSCOPY Norma Durbin MD [address] [place] [address] Phone: tel: fax: Referral ID Status Reason Start Date Expiration Date Visits Re quested Visits Authorized [id number] 1 1 Encounter Details Date Type Department Care Team (Late st Contact Info) Description 07/12/2022 11:30 AM CDT - 07/12/2022 12:00 PM CDT Surgery [facility] Periop [address] [place] [address] Norma Durbin MD [address] [place] [address] COLONOSCOPY-deepa appendicile inflammed patch biopsy-normal ascending colon biopsy-transverse colon biopsy-descending colon biopsy-sigmoid colon inflammed patch biopsy-normal rectal biopsy Surgery Details Date/Time Status Location OR Service Patient Class Case Class Case Type Trauma Case? 07/12/2022 11:30 AM Posted [facility] Procedure LRB Anes Op Region Wound Class Comments COLONOSCOPY-deepa appendicile inflammed patch biopsy-normal ascending colon biopsy-transverse colon biopsy-descending colon biopsy-sigmoid colon inflammed patch biopsy-normal rectal biopsy N/A Monitored Anesthesia Care Surgeon Surgeon Role Service Panel Norma Durbin MD Primary Gastroenterology 1 Special Needs HCG - Dx UC No covid test documented in this encounter Social History Tobacco Use Types Packs/Day Years [...] on file Legal Sex Female 1:37 PM OCC THERAPY ASST Gender Identity Not on file Sexual Orientation Not on file COVID-19 Exposure Response Date Recorded In the last 10 days, have yo u been in contact with someone who was confirmed or suspected to have Coronavirus/COVID-19? No / Unsure 07/12/2022 10:54 AM CDT documented as of this encounter Last Filed Vital Signs Vital Sign Reading Time Taken Comments Blood Pressure 154/90 07/12/2022 11:16 AM CDT Pulse 84 07/12/2022 11:16 AM CDT Temperature 36 ??C (96.8 ??F) 07/12/2022 11:16 AM CDT Respiratory Rate 16 07/12/2022 11:16 AM CDT Oxygen Saturation 100% 07/12/2022 11:16 AM CDT Inhaled Oxygen Concentration - - Weight 107.5 kg (237 lb) 06/22/2022 3:00 PM CDT Height 177.8 cm (5' 10 ) 06/22/2022 3:00 PM CDT Body Mass Index 34.01 06/22/2022 3:00 PM CDT documented in this encounter Discharge Instructions * Discharge Instructions* Claudette Monte RN - 07/12/2022 12:22 PM CDT You had a colonoscopy today. Dr. DURBIN found: Findings: Two areas including periappendiceal area [...] FOR BIOPSY RESULTS IN 2 WEEKS AT [phone], WORK, OPERATE MACHINERY OR USE POWER TOOLS UNTIL DAY AFTER PROCEDURE. NO ALCOHOL BEVERAGES TODAY FOLLOWING DAY: RETURN TO FULL ACTIVITY, INCLUDING WORK, UNLESS INSTRUCTED OTHERWISE. Call doctor's office ([phone]) or go to Emergency room for: Difficulty Breathing, Headache Or Visual Disturbances Persistent Dizziness Or Light-Headedness Persistent Nausea and Vomiting Temperature greater then 100.0 Significant abdominal pain, chest pain, or bleeding. Here at [facility] we strive to provide excellent care to [...] envelope is provided. Thank you for choosing [facility]. documented in this encounter Medications at Time of Discharge Albuterol Sulfate (PROAIR HFA IN) take by inhalation. Fluticasone-Salme terol (ADVAIR DISKUS IN) take by inhalation 2 times daily. Tabby 1.530 1.5-30 MG-MCG Tablet Take 1.5 mg by mouth. 04/20/2022 metoprolol tartrate (LOPRESSOR) 25 MG Tablet 2 times daily. 01/08/2020 Norethin Daniel-Eth Estrad-FE (JUNE03/12 PO) Take by mouth. pantoprazole (PROTONIX) 40 [...] - 07/12/2022 12:16 PM CDT COLONOSCOPY Rossy Sohail 1975 47 y.o. female 07/12/2022 10:54 AM [...] Savage RN - 06/22/2022 3:31 PM CDT [facility] GI TEACHING Patient Name: Rossy Sauceda : 1975 [facility]#: [id number] Person Educated Patient Ready to Learn Yes [...] for your procedure as instructed by the [facility]. Go to Registration the morning [...] be allowed to accompany you to the [facility]. No children under the age of 16 will be allowed in the [facility] unless they are the patient. If the [...] to Teaching: Verbalizes Understanding Patient assessed for silver buffer during the preop interview and appropriate interventions [...] Case Report Surgical Pathology Report ? Case: [id number] ? Authorizing Provider: ??Norma Durbin MD ? Collected: ? 07/12/2022 12:05 PM ? [facility] ? Received: ?07/12/2022 12:32 PM ? [facility] Gi ? Lab Main ? Pathologist: ? Emilyger, Bryant M, MD ? Specimens: ?? A) - Colon, deepa appendicile inflammed patch biopsy ? B) - Colon, ascending colon biopsy ? C) - Colon, transverse colon biopsy ? D) - Colon, descending colon biopsy ? E) - Colon, sigmoid colon inflammed patch biopsy ? F) - Rectum, normal rectal biopsy ? 07/13/2022 8:41 AM CDT [facility] FINAL DIAGNOSIS A. COLON, PERIAPPENDICEAL INFLAMED [...] LYMPHOCYTIC COLITIS 07/13/2022 8:41 AM CDT [facility] Pre-Operative Diagnosis ULCERATIVE COLITIS 07/13/2022 8:41 AM CDT [facility] Gross Description A. deepa appendicile inflammed [...] cassette F1. KS/sb 07/13/2022 8:41 AM CDT [facility] Microscopic Description Microscopic examination was performed which supports the final diagnosis. All control tissues stained appropriately. 07/13/2022 8:41 AM CDT [facility] Tissue COLON STRUCTURE / Unknown 07/12/2022 [...] Durbin MD PATHOLOGY/CYTOLOGY ORDERABLES F inal Result [facility] [address] [place] [address] * POCT Urine HCG () (07/12/2022 11:04 AM CDT) POC URINE Negative POC URINE CONTROL Packager Machine Pass Urine 07/12/2022 11:0 4 AM CDT us Norma Durbin MD POINT OF CARE TESTING (MANUAL) Final Result * GI IMAGING - COLONOSCOPY (07/12/2022 10:59 AM CDT) us Norma Durbin MD IMG DIAGNOSTIC ORDERABLES Final Result documented in this encounter Visit Diagnoses Not on filedocumented in this encounter Administered Medications Inactive Administered [...] by Anesthesia - Provider: Justus Ojeda APRN, COCO)[id number] (Anesthesia Volume Adjustment - Provider: Justus Ojeda APRN, CRNA)[id number] (Stopped - Provider: Claudette Monte RN) documented in this encounter Care Teams Pilot Plant Operator Helper Relationship Specialty Start Date End Date Balbina Calderon MD [address] [place] [address] PCP - General Internal Medicine 01/02/20 Yair Vickers MD [address] [facility] [address] [address] Consulting Physician Cardiovascular Disease - Cardiology 08/28/21 Norma Durbin MD [address] [place] [address] Consulting Physician Gastroenterology 04/22/22 documented as of this encounter
--- OUTSIDE RECORDS SUMMARY | 2024-02-06 18:54 | XMS_ITS | Encounter Summary ---
Author Organization [facility] Address [address] [place] [address] Phone Care Team Providers Care Retail Business Manager Name Role Phone Balbina Calderon MD Primary Care Provider Yair Vickers MD Unavailable [phone] Encounter Details Date Type Department Care Team (Late st Contact Info) Description 10/01/2021 Refill [facility] - [place] [address] [place] [address] Diana Gao, [facility] [address] [place] [address] Social History Tobacco Use Types Packs/Day Years Used Date Smoking Tobacco: Never Smokeless Tobacco: Never Alcohol Use Standard Drinks/Week Comments Not Currently 0 (1 standard drink = 0.6 oz pur e alcohol) Sexually Active Control Partners Comments Not Currently Comments No Sex and Gender Information Value Date Recorded Sex Assigned at Not on file 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 documented in this encounter Plan of Treatment Not on file documented as of this encounter Visit Diagnoses Not on filedocumented in this encounter Care Teams Retail Business Manager Relationship Specialty Start Date End Date Balbina Calderon MD [address] [place] [address] PCP - General Internal Medicine 01/02/20 Yair Vickers MD [address] [place] [address] [address] [place] [address] Consulting Physician Cardiovascular Disease - Cardiology 08/28/21 documented as of this encounter
--- OUTSIDE RECORDS SUMMARY | 2024-02-06 18:54 | XMS_ITS | Encounter Summary ---
Author Organization [facility] Care Team Providers Care Fruit Grower Name Role Phone Balbina Calderon MD Primary Care Provider Yair Vickers MD Unavailable [phone] Norma Durbin MD Unavailable [phone] Encounter Details Date Type Department Care Team (Latest Contact Info) Description 06/22/2022 Travel Social History Tobacco Use Types Packs/Day Years Used Date Smoking Tobacco: Never Smokeless Tobacco: Never Alcohol Use Standard Drinks/Week Comments Not Currently 0 (1 standard drink = 0.6 oz pur e alcohol) Sexually Active Control Partners Comments Not Currently Comments No Sex and Gender Information Value Date Recorded Sex Assigned at Not on file Legal Sex Female 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 No / Unsure 06/22/2022 3:21 PM CDT documented as of this encounter Plan of Treatment Not on file documented as of this encounter Visit Diagnoses Not on filedocumented in this encounter Care Teams Fruit Grower Relationship Specialty Start Date End Date Balbina Calderon MD [address] [place] [address] PCP - General Internal Medicine 01/02/20 Yair Vickers MD 2 [facility] [address] [place] [address] Consulting Physician Cardiovascular Disease - Cardiology 08/28/21 Norma Durbin MD [address] [place] [address] Consulting Physician Gastroenterology 04/22/22 documented as of this encounter
--- OUTSIDE RECORDS SUMMARY | 2024-02-06 18:54 | XMS_ITS | Encounter Summary ---
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) Procedures GASTRO PROCEDURE Diana Gao PAC [address] [place] [address] Phone: tel: fax: Referral ID Status Reason Start Date Expiration Date Visits Re quested Visits Authorized [id number] Closed 08/28/2021 1 1 Reason for Visit * Reason Comments Follow-up 1 year Proctits Medication Management Encounter Details Date Type Department Care Team (Latest Contact Info) Description 08/28/2021 2:40 PM CDT Office Visit [facility] - Gastroenterology - [place] [address] [place] [address] Diana Gao PAC [address] [place] [address] 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 No / Unsure 08/28/2021 2:39 PM CDT documented as of this encounter Last Filed Vital Signs Vital Sign Reading Time Taken Comments Blood Pressure 124/72 08/28/2021 2:46 PM CDT Pulse 83 08/28/2021 2:46 PM CDT Temperature - - Respiratory Rate 20 08/28/2021 2:46 PM CDT Oxygen Saturation 99% 08/28/2021 2:46 PM CDT Inhaled Oxygen Concentration - - Weight 106.6 kg (235 lb) 08/28/2021 2:46 PM CDT Height 182.9 cm (6') 08/28/2021 2:46 PM CDT Body Mass Index 31.87 08/28/2021 2:46 PM CDT documented in this encounter Patient Instructions * Patient Instructions* Diana Gao Dedra, PAC - 08/28/2021 2:40 PM CDT Continue current therapy Natural fibers: all bran/ raisin bran/ fiber one/ oats Fruits such as apples/ pears/ prunes and juices of same may stimulate bowels- warm juice works best Bananas can cause constipation Add generic benefiber 2 tbsp daily- may use up to 2 times a day Increase water to 64 oz per day Probiotic-highest colony count you can afford to purchase on a routine basis If no BM in 3 days, may use Miralax as directed and repeat approximately every 4 hours until BM (nomore than 5 x per day) or milk of magnesia 2 tbsp at bedtime Await colonoscopy If you had lab work ordered at this visit, we will contact you regarding the results once all results have been received and reviewed. You may be able to see results in your my chart as they come in, please remember the computer is only given parameters for what is ???normal?? or ???abnormal?? .The significance of anything in the ???abnormal?? range is based on the remaining test results. Aga in we will contact you when we have received and reviewed all the results. Please arrive at least 15 minutes prior to all appointments for registration/ rooming. Please schedule follow-up in near future to discuss any concerns that were not addressed fully at today's office visit. To continue to provide excellent patient care, you may receive a survey regarding your visit today.To help us serve you better, please complete and return. These surveys are completely anonymous. If you have any concerns/ questions regarding today's visit or experience new or worsening symptoms, please call. documented in this encounter Progress Notes * Diana Gao PAC - 08/28/2021 2:40 PM CDT PROBLEM LIST: Ulcerative proctitis Rossy Sauceda is a . 46 y.o. female who presents with Chief Complaint Patient presents with ??? Follow-up 1 year ??? Proctits ??? Medication Management . 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 S: Presents for follow-up for ulcerative proctitis- doing well with current therapy have BM 1-2 x day [place] 4 . Normal appetite. Nausea off and on. Denies early satiety. Denies vomiting/ abdominal pain/ constipation/ diarrhea/ mucus or blood in stools/ toilet or on tissue. Denies black or tarry stools. Denies change to size/ shape/ caliber of stools. Denies weight loss/ malaise. Some fatigue. ALLERGIES: No Known Allergies MEDICATIONS: Current Outpatient Medications Medication Sig Dispense Refill ??? Albuterol Sulfate (PROAIR HFA IN) take by inhalation. ??? balsalazide (COLAZAL) 750 MG Capsule TAKE THREE CAPSULES BY MOUTH ONCE DAILY 270 Capsule 3 ??? Fluticasone-Salmeterol (ADVAIR DISKUS IN) take by [...] Procedure Laterality Date ??? APPENDECTOMY SOCIAL: Social History Socioeconomic History ??? Marital status: Single Spouse name: Not on file ??? Number of children: Not on file ??? Years of education: Not on file ??? Highest education level: Not on file Occupational History ??? Not on file Tobacco Use ??? Smoking status: Never Smoker ??? Smokeless tobacco: Never Used Vaping Use ??? Vaping Use: Never used Substance and Sexual Activity ??? Alcohol use: Not Currently ??? Drug use: Not Currently ??? Sexual activity: Not Currently Other Topics Concern ??? Not on file Social History Narrative ??? Not on file FAMILY HX: Family History Problem Relation Age of Onset ??? Congenital Heart Disease Mother ??? Chronic Obstructive Pulmonary Disease Mother ??? Crohn's Disease Sister ??? Lung Cancer Maternal Grandmother VITAL SIGNS: Vitals: 08/28/21 1446 BP: 124/72 Pulse: 83 Resp: 20 SpO2: 99% Weight: 235 lb (106.6 kg) Height: 6' (1.829 m) GENERAL EXAM: GENERAL: Well developed, well nourished, in no acute distress. AAO x3. Cooperative. HEENT: Normocephalic. PERRLA. Nonicteric. NECK: Supple/ non tender/ full ROM LYMPH NODES: No adenopathy. CARDIOVASCULAR: RRR/ S1S2/ No m/g/c/r. PULMONARY: Respirations easy and regular. Breath sounds clear bilaterally. No rhonchi/ rales/ wheezes. GI: Abdomen soft, nondistended. No tenderness, rebound, guarding or masses. No hepatosplenomegaly. Bowel sounds normoactive. MUSCULOSKELETAL: No CVA tenderness. Normal gait and movement of extremities. No tenderness/ swelling/ crepitus. SKIN: General-warm, pink and dry. No rashes/ lesions. PSYCHIATRIC: Euthymic. Affect congruent with mood. Normal thought process. Treatment plan reviewed. Risks and benefits discussed. Expressed understanding. Patient Instructions Continue current therapy Natural fibers: all bran/ raisin bran/ fiber one/ oats Fruits such as apples/ pears/ prunes and juices of same may stimulate bowels- warm juice works best Bananas can cause constipation Add generic benefiber 2 tbsp daily- may use up to 2 times a day Increase water to 64 oz per day Probiotic-highest colony count you can afford to purchase on a routine basis If no BM in 3 days, may use Miralax as directed and repeat approximately every 4 hours until BM (nomore than 5 x per day) or milk of magnesia 2 tbsp at bedtime Await colonoscopy If you had lab work ordered at this visit, we will contact you regarding the results once all results have been received and reviewed. You may be able to see results in your my chart as they come in, please remember the computer is only given parameters for what is ???normal?? or ???abnormal?? .The significance of anything in the ???abnormal?? range is based on the remaining test results. Aga in we will contact you when we have received and reviewed all the results. Please arrive at least 15 minutes prior to all appointments for registration/ rooming. Please schedule follow-up in near future to discuss any concerns that were not addressed fully at today's office visit. To continue to provide excellent patient care, you may receive a survey regarding your visit today.To help us serve you better, please complete and return. These surveys are completely anonymous. If you have any concerns/ questions regarding today's visit or experience new or worsening symptoms, please call. 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) documented in this encounter Results * COMPLETE BLOOD COUNT (CBC) WITH DIFF (09/11/2021 12:00 AM CDT) Blood 09/11/2021 [facility] PAC HEMATOLOGY ORDERABLES Fin al Result Performing Organization Address City/[facility]/ZIP Co de Phone Number SCAN * BASIC METABOLIC PANEL W/ CALCIUM TOTAL (09/11/2021 12:00 AM CDT) Blood 09/11/2021 [facility] PAC CHEMISTRY ORDERABLES Micaela l Result SCAN documented in this encounter Visit Diagnoses Diagnosis 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
--- OUTSIDE RECORDS SUMMARY | 2024-02-06 18:54 | XMS_ITS | Encounter Summary ---
Author Organization [facility] Address [address] 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) Procedures GASTRO PROCEDURE Dom Hilliard MD [address] [place] [address] Phone: tel: fax: Referral ID Status Reason Start Date Expiration Date V isits Requested Visits Authorized [id number] Canceled 04/21/2023 1 1 RNATIONAL TRAVEL CONSULTANT Reason for Visit * Reason Comments Follow-up Encounter Details Date Type Department Care Team (Latest Contact Info) Description 04/21/2023 3:30 PM INTERNATIONAL TRAVEL CONSULTANT Office Visit [facility] - Gastroenterology - [place] [address] [place] [id number] Dom Hilliard MD [address] [place] [address] Ulcerative pancolitis without complication (HCC) (Primary Dx); 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) Discharge Disposition: [...] on file Legal Sex Female 1:37 PM INTERNATIONAL TRAVEL CONSULTANT Gender Identity Not on file Sexual Orientation Not on file documented as of this encounter Last Filed Vital Signs Vital Sign Reading Time Taken Comments Blood Pressure 148/88 04/21/2023 4:01 PM INTERNATIONAL TRAVEL CONSULTANT Pulse 63 04/21/2023 4:01 PM INTERNATIONAL TRAVEL CONSULTANT Temperature 37 ??C (98.6 ??F) 04/21/2023 4:01 PM INTERNATIONAL TRAVEL CONSULTANT Respiratory Rate 14 04/21/2023 4:01 PM INTERNATIONAL TRAVEL CONSULTANT Oxygen Saturation 100% 04/21/2023 4:01 PM INTERNATIONAL TRAVEL CONSULTANT Inhaled Oxygen Concentration - - Weight 106.5 kg (234 lb 12.8 oz) 04/21/2023 4:01 PM INTERNATIONAL TRAVEL CONSULTANT Height 177.8 cm (5' 10 ) 04/21/2023 4:01 PM INTERNATIONAL TRAVEL CONSULTANT Body Mass Index 33.69 04/21/2023 4:01 PM INTERNATIONAL TRAVEL CONSULTANT documented in this encounter Progress Notes * Dom Hilliard MD - 04/21/2023 3:30 PM CST GI Office Progress Note Patient: Rossy Sauceda : 1975 PCP: BALBINA CALDERON MD DATE OF SERVICE: 04/21/2023 Subjective Rossy Sauceda is a pleasant 47 y.o. female with a PMH notable for ulcerative colitis. The patient is referred to GI medicine for a chief complaint of ulcerative colitis Patient has had ulcerative colitis since 2012 she has been on balsalazide with good results Last colonoscopy was 07/10/2022 with a patch of inflammation in the cecum and sigmoid confirmed on biopsy She does not have diarrhea other complaints today. She carries a diagnosis of left-sided colitis with proctitis biopsies which include the cecum have also had some inflammation Review of Systems: CONSTITUTIONAL: As noted HEENT: Eyes: No visual loss, blurred vision Ears, Nose, Throat: No difficulty swallowing, painful swallowing SKIN: No rash or itching. CARDIOVASCULAR: No chest pain, chest discomfort. RESPIRATORY: No shortness of breath, cough or sputum. GASTROINTESTINAL: See above GENITOURINARY: No burning on urination, incontinence NEUROLOGICAL: No headache, syncope PSYCHIATRIC: History as noted ALLERGIES has No Known Allergies. CURRENT MEDICATION Current Outpatient Medications: Albuterol Sulfate (PROAIR HFA IN), take by inhalation., Disp: , Rfl: balsalazide (COLAZAL) 750 MG Capsule, TAKE THREE CAPSULES BY MOUTH EVERY DAY, Disp: 270 Capsule, Rfl: 12 Fluticasone-Salmeterol (ADVAIR DISKUS IN), take by inhalation 2 times daily., Disp: , Rfl: Tabby 1.5/30 1.5-30 MG-MCG Tablet, Take 1.5 mg by mouth., Disp: , Rfl: metoprolol tartrate (LOPRESSOR) 25 MG Tablet, 2 times daily., Disp: , Rfl: Norethin Daniel-Eth Estrad-FE (03/12 PO), Take by mouth. (Patient not taking: Reported on 04/22/2022), Disp: , Rfl: pantoprazole (PROTONIX) 40 MG Tablet Delayed Response, pantoprazole 40 mg tablet,delayed release, Disp: , Rfl: PAST MEDICAL HX has a past medical history of Abnormal heart rate, Asthma, Hypertension, and UC (ulcerative colitis) ([facility]). PAST SURGICAL HX has a past surgical history that includes appendectomy and Colonoscopy (N/A, 07/12/2022). SOCIAL HX reports that she has never smoked. She has never used smokeless tobacco. She reports that she does not currently use alcohol. She reports that she does not currently use drugs. Current Medications: Current Outpatient Medications Medication Sig Dispense Refill Albuterol Sulfate (PROAIR HFA IN) take by inhalation. balsalazide (COLAZAL) 750 MG Capsule TAKE THREE CAPSULES BY MOUTH EVERY DAY 270 Capsule 12 Fluticasone-Salmeterol (ADVAIR DISKUS IN) take by inhalation 2 times daily. Tabby 1.5/30 1.5-30 MG-MCG Tablet Take 1.5 mg by mouth. metoprolol tartrate (LOPRESSOR) 25 MG Tablet 2 times daily. Norethin Daniel-Eth Estrad-FE (03/12 PO) Take by mouth. (Patient not taking: Reported on 04/22/2022) pantoprazole (PROTONIX) 40 MG Tablet Delayed Response pantoprazole 40 mg tablet,delayed release No current facility-administered medications for this visit. Physical Exam: BP 148/88 Pulse 63 Temp 98.6 ??F (37 ??C) Resp 14 Ht 5' 10 (1.778 m) Wt 234 lb 12.8 oz (106.5 kg) SpO2 100% BMI 33.69 kg/m?? General appearance: alert,active and in no acute distress. Head: normocephalic, without trauma Eyes: EOMI,PEARLA, conjunctiva and sclera clear . Lids normal Ears: External canals normal, TM's normal, Nose: No external deformity, No nasal discharge Throat: Oropharynx normal Neck: Neck is supple without palpable masses. Lymph Nodes: no cervical adenopathy Chest: Lungs clear to auscultation bilaterally. Cardiovascular: Heart rate and rhythm regular. Heart sounds normal without murmur. No edema Abdomen: Normal bowel sounds throughout. No abd tenderness or palpable masses . No rigidity, rebound or guarding . Skin: Warm and dry . No rashes noted Neurologic: no focal neuro deficit, good muscle tone, Moving all extremities well. Extremities:all joints motions are within normal range. Lab: No results for input(s): CREATININE , BUN , SODIUM , POTASSIUM in the last 72 hours. No results for input(s): WBC , HGB , MCV , INR in the last 72 hours. Invalid input(s): PLTCOUNT No results for input(s): AST , ALT , ALKPHOS , TBIL , ALBUMIN , LIPASE , AMYLASE in the last 72 hours. No results for input(s): FERRITIN , IRON , TSH in the last 72 hours. Invalid input(s): SATURATION Imaging: I personally reviewed all pertinent imaging data. 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) - Discontinue: balsalazide (COLAZAL) 750 MG Capsule; TAKE THREE CAPSULES BY MOUTH EVERY DAY - GASTRO PROCEDURE; Future - balsalazide (COLAZAL) 750 MG Capsule; TAKE THREE CAPSULES BY MOUTH EVERY DAY Only 1 colonoscopy report is available for review this 1 shows a patch in the cecum and sigmoid that were inflamed more consistent with the ulcerative colitis that involves the entire colon however the medical records demonstrate that on presentation she had left-sided colitis Nonetheless at this stage she is nearly 11 years out would recommend that based on a last colonoscopy we should continue to view her somebody who has the entire colon that might have been involved and hence the yearly colonoscopies will be appropriate she would like to defer this for a few more months because her sister who also has inflammatory bowel disease is undergoing surgery we will renew her medications at [facility] No follow-ups on file. 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
--- OUTSIDE RECORDS SUMMARY | 2024-02-06 18:54 | XMS_ITS | Encounter Summary ---
Author Organization [facility] Address [address] [place] [address] Phone Care Team Providers Care Guest Experience Captain Name Role Phone Balbina Calderon MD Primary Care Provider Encounter Details Date Type Department Care Team (Late st Contact Info) Description 11/25/2020 Telephone [facility] - Gastroenterology - [place] [address] [place] [address] Diana Gao, [facility] [address] [place] [address] Social History Tobacco Use Types Packs/Day Years Used Date Smoking Tobacco: Never Smokeless Tobacco: Never Alcohol Use Standard Drinks/Week Comments Not Currently 0 (1 standard drink = 0.6 oz pur e alcohol) Sexually Active Control Partners Comments Not Currently Comments No Sex and Gender Information Value Date Recorded Sex Assigned at Not on file Legal Sex Female 1:37 PM PRINCIPAL CLERK TYPIST Gender Identity Not on file Sexual Orientation Not on file documented as of this encounter Miscellaneous Notes * Telephone Encounter - Jody Ogden - 11/25/2020 3:05 PM CDT Pt calling to make you aware that her medication is working and doesn't need to be adjusted at thistime. Please advise documented in this encounter Plan of Treatment Not on file documented as of this encounter Visit Diagnoses Not on filedocumented in this encounter Care Teams Guest Experience Captain Relationship Specialty Start Date End Date Balbina Calderon MD [address] [place] [id number] PCP - General Internal Medicine 01/02/20 documented as of this encounter
--- OUTSIDE RECORDS SUMMARY | 2024-02-06 18:54 | XMS_ITS | Encounter Summary ---
Author Organization [employer] Care Team Providers Care Catcher Filter Tip Name Role Phone Balbina Calderon MD Primary Care Provider Yair Vickers MD Unavailable [phone] Norma Durbin MD Unavailable [phone] Encounter Details Date Type Department Care Team (Latest Contact Info) Description 07/12/2022 Travel Social History Tobacco Use Types Packs/Day Years Used Date Smoking Tobacco: Never Smokeless Tobacco: Never Alcohol Use Standard Drinks/Week Comments Not Currently 0 (1 standard drink = 0.6 oz pur e alcohol) Sexually Active Control Partners Comments Not Currently Comments No Sex and Gender Information Value Date Recorded Sex Assigned at Not on file Legal Sex Female 1:37 PM PLANIMETER OPERATOR Gender Identity Not on file Sexual Orientation [...] on filedocumented in this encounter Care Teams Catcher Filter Tip Relationship Specialty Start Date End Date Balbina Calderon MD [address] [place] [address] PCP - General Internal Medicine 01/02/20 Yair Vickers MD 2 [facility] [address] [place] [address] Consulting Physician Cardiovascular Disease - Cardiology 08/28/21 Norma Durbin MD [address] [place] [address] Consulting Physician Gastroenterology 04/22/22 documented as of this encounter
--- OUTSIDE RECORDS SUMMARY | 2024-02-06 18:54 | XMS_ITS | Encounter Summary ---
Author Organization [employer] Care Team Providers Care Campus Police Officer Name Role Phone Balbina Calderon MD Primary Care Provider Encounter Details Date Type Department Care Team (Latest Contact Info) Description 01/28/2020 Travel Social History Tobacco Use Types Packs/Day Years Used Date Smoking Tobacco: Never Smokeless Tobacco: Never Alcohol Use Standard Drinks/Week Comments Not Currently 0 (1 standard drink = 0.6 oz pur e alcohol) Sexually Active Control Partners Comments Not Currently Comments No Sex and Gender Information Value Date Recorded Sex Assigned at Not on file Legal Sex Female 1:37 PM WARPER CREELER Gender Identity Not on file Sexual Orientation Not on file COVID-19 Exposure Response Date Recorded In the last month, have you been in contact with someone who was confirmed or suspected to have Coronavirus / COVID-19? No / Unsure 01/28/2020 3:08 PM WARPER CREELER documented as of this encounter Plan of Treatment Not on file documented as of this encounter Visit Diagnoses Not on filedocumented in this encounter Care Teams Campus Police Officer Relationship Specialty Start Date End Date Balbina Calderon MD [address] [place] [address] PCP - General Internal Medicine 01/02/20 documented as of this encounter
--- OUTSIDE RECORDS SUMMARY | 2024-02-06 18:54 | XMS_ITS | Encounter Summary ---
Author Organization [facility] Address [address] [place] [address] Phone Care Team Providers Care Embalmer/Funeral Director Name Role Phone Balbina Calderon MD Primary Care Provider Yair Vickers MD Unavailable [phone] Norma Durbin MD Unavailable [phone] Reason for Visit * Reason Comments Medication Refill Encounter Details Date Type Department Care Team (Late st Contact Info) Description 03/14/2023 Refill [facility] - Gastroenterology [facility] [address] [place] [id number] Norma Durbin MD [address] [place], [place] [id number] Medication Refill Social History Tobacco Use Types Packs/Day Years Used Date Smoking Tobacco: Never Smokeless Tobacco: Never Alcohol Use Standard Drinks/Week Comments Not Currently 0 (1 standard drink = 0.6 oz pur e alcohol) Sexually Active Control Partners Comments Not Currently Comments No Sex and Gender Information Value Date Recorded Sex Assigned at Not on file Legal Sex Female 1:37 PM TRACTOR MECHANIC APPRENTICE Gender Identity Not on file Sexual Orientation Not on file documented as of this encounter Miscellaneous Notes * Addendum Note - Tulio Cerna RN - 03/25/2023 10:27 AM CSTAddended by: TULIO CERNA on: 03/25/2023 10:27 AM Modules accepted: Orders TOR MECHANIC APPRENTICE * Telephone Encounter - Tulio Cerna RN - 03/25/2023 10:17 AM TRACTOR MECHANIC APPRENTICE Patient is aware and verbalizes understanding. Patient request UA to be faxed to [place]. appt scheduled for 04/21/[address] Hilliard. UA order placed. Fax successful. TOR MECHANIC APPRENTICE TOR MECHANIC APPRENTICE * Telephone Encounter - Norma Durbin MD - 03/17/2023 3:33 PM CST Medication balsalazide has been approved in signed by me Please also order a UA and have patient follow-up with Dr. Hilliard TOR MECHANIC APPRENTICE * Telephone Encounter - Ingris Vogt RN - 03/14/2023 11:03 AM CST Medication failed the protocol, provider to review and approve the medication order if appropriate. Requested Prescriptions Pending Prescriptions Disp Refills balsalazide (COLAZAL) 750 MG Capsule [Pharmacy Med Name: balsalazide 750 mg capsule] 270 Capsule 1 Sig: TAKE THREE CAPSULES BY MOUTH EVERY DAY Inflammatory Bowel Agents Protocol Failed - 03/14/2023 8:00 AM Failed - Visit with relevant provider in past 6 months or upcoming 90 days Recent Visits No visits were found meeting these conditions. Showing recent visits within past 182 days and meeting all other requirements Future Appointments No visits were found meeting these conditions. Showing future appointments within next 90 days and meeting all other requirements Failed - Urinalysis on record in past 12 months No results found for: USPG , URINEPH , ULEUK , UNIT , PROTEINRNUR , UGLQUAL , UKET , UROB , URINEBILI , URINERBC , URCOLOR , URCLARITY Passed - CBC on record in past 12 months WBC Date Value Ref Range Status 05/01/2022 11.83 4.00 - 12.00 10(3)/mcL Final RBC Date Value Ref Range Status 05/01/2022 4.55 3.80 - 5.30 10(6)/mcL Final HEMATOCRIT (HCT) Date Value Ref Range Status 05/01/2022 41.6 36.0 - 47.0 % Final HEMOGLOBIN (HGB) Date Value Ref Range Status 05/01/2022 12.9 12.0 - 15.8 g/dL Final MCV Date Value Ref Range Status 05/01/2022 91.4 82.0 - 96.0 fL Final MCH Date Value Ref Range Status 05/01/2022 28.4 26.0 - 34.0 pg Final MCHC Date Value Ref Range Status 05/01/2022 31.0 31.0 - 36.0 g/dL Final Passed - Serum creatinine on record in past 12 months CREATININE, BLOOD Date Value Ref Range Status 05/01/2022 0.76 0.60 - 1.10 mg/dL Final TOR MECHANIC APPRENTICE 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) Expected: 03/25/2023, Expires: 03/25/2024 documented as of this encounter Visit Diagnoses Diagnosis 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
--- OUTSIDE RECORDS SUMMARY | 2024-02-06 18:54 | XMS_ITS | Encounter Summary ---
Author Organization [facility] Address [address] [place] [address] Phone Care Team Providers Care Open Hearth Melter Name Role Phone Balbina Calderon MD Primary Care Provider Encounter Details Date Type Department Care Team (Late st Contact Info) Description 02/05/2020 Telephone [facility] - [facility] - [place] [address] [place] [address] Diana Gao, [facility] [address] [place] [address] Social History Tobacco Use Types Packs/Day Years Used Date Smoking Tobacco: Never Smokeless Tobacco: Never Alcohol Use Standard Drinks/Week Comments Not Currently 0 (1 standard drink = 0.6 oz pur e alcohol) Sexually Active Control Partners Comments Not Currently Comments No Sex and Gender Information Value Date Recorded Sex Assigned at Not on file Legal Sex Female 1:37 PM VBA PROGRAMMER Gender Identity Not on file Sexual Orientation Not on file COVID-19 Exposure Response Date Recorded In the last month, have you been in contact with someone who was confirmed or suspected to have Coronavirus / COVID-19? No / Unsure 01/28/2020 3:08 PM VBA PROGRAMMER documented as of this encounter Miscellaneous Notes * Telephone Encounter - Marcial Caraballo CMA - 02/05/2020 3:08 PM VBA PROGRAMMER Patient notified. PROGRAMMER * Telephone Encounter - Diana Gao PAC - 02/05/2020 2:44 PM VBA PROGRAMMER Please advise I have corrected that. PROGRAMMER * Telephone Encounter - Marcial Caraballo CMA - 02/05/2020 2:07 PM VBA PROGRAMMER Patient picked up her prescription for the Balsalazide 7850 MG capsules, she states it was written wrong, It was supposed to be: Take 3 capsules twice a day. She is asking if this can be corrected. 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
--- OUTSIDE RECORDS SUMMARY | 2024-02-06 18:54 | XMS_ITS | Encounter Summary ---
Author Organization [facility] Address [address] [address] Phone Care Team Providers Care Managed Care Director Name Role Phone Balbina Calderon MD Primary Care Provider Yair Vickers MD Unavailable Norma Durbin MD Unavailable [phone] Encounter Details Date Type Department Care Team (Late st Contact Info) Description 04/13/2022 Telephone [facility] [address] [place] [address] Norma Durbin MD [address] [place] [address] Social History Tobacco Use Types Packs/Day Years Used Date Smoking Tobacco: Never Smokeless Tobacco: Never Alcohol Use Standard Drinks/Week Comments Not Currently 0 (1 standard drink = 0.6 oz pur e alcohol) Sexually Active Control Partners Comments Not Currently Comments No Sex and Gender Information Value Date Recorded Sex Assigned at Not on file Legal Sex Female 1:37 PM PAPER CLEANER Gender Identity Not on file Sexual Orientation Not on file COVID-19 Exposure Response Date Recorded In the last 10 days, have yo u been in contact with someone who was confirmed or suspected to have Coronavirus/COVID-19? No / Unsure 04/22/2022 3:24 PM PAPER CLEANER documented as of this encounter Miscellaneous Notes * Telephone Encounter - Marcial Torre CMA - 04/22/2022 3:47 PM PAPER CLEANER Patient scheduled while at office visit. R CLEANER * Telephone Encounter - Genesis Andrade - 04/13/2022 3:30 PM CST Patient called and said she is returning Yonny's call to schedule colonoscopy. Please call her back at [phone] R CLEANER documented in this encounter Plan of Treatment Not on file documented as of this encounter Visit Diagnoses Not on filedocumented in this encounter Care Teams Managed Care Director Relationship Specialty Start Date End Date Balbina Calderon MD [address] [place] [id number] PCP - General Internal Medicine 01/02/20 Yair Vickers MD [address] [facility] [place] [address] Consulting Physician Cardiovascular Disease - Cardiology 08/28/21 Norma Durbin MD [address] [place] [address] Consulting Physician Gastroenterology 04/22/22 documented as of this encounter
--- OUTSIDE RECORDS SUMMARY | 2024-02-06 18:54 | XMS_ITS | Encounter Summary ---
Author Organization [facility] Address [address] [place] [address] Phone Care Team Providers Care Program Evaluation Consultant Name Role Phone Balbina Calderon MD Primary Care Provider Yair Vickers MD Unavailable Reason for Visit * Reason Onset Date Comments Medication Refill 03/29/2022 Encounter Details Date Type Department Care Team (Late st Contact Info) Description 03/23/2022 Refill [facility] [address] [place] [address] Norma Durbin MD [address] [place] [address] Medication Refill Social History Tobacco Use Types Packs/Day Years Used Date Smoking Tobacco: Never Smokeless Tobacco: Never Alcohol Use Standard Drinks/Week Comments Not Currently 0 (1 standard drink = 0.6 oz pur e alcohol) Sexually Active Control Partners Comments Not Currently Comments No Sex and Gender Information Value Date Recorded Sex Assigned at Not on file Legal Sex Female 1:37 PM JET WORKER Gender Identity Not on file Sexual Orientation Not on file documented as of this encounter Miscellaneous Notes * Telephone Encounter - Norma Durbin MD - 03/29/2022 10:38 AM CST noted WORKER * Telephone Encounter - Kaleigh Cerna RN - 03/29/2022 9:55 AM JET WORKER Cbc received from [facility], ordered by patient's PCP. Scanned into media please review. cmp and ua order faxed to [facility] on 03/23/2022. WORKER * Telephone Encounter - Kaleigh Cerna RN - 03/23/2022 11:37 AM JET WORKER Patient is aware and verbalizes understanding. appt scheduled for 04/22/2022. Patient updated medication was sent to pharmacy. Patient reports that she recently had blood work with PCP, cbc, bmp and tsh on 03/15/2022. Patient would like her labs faxed to [facility] in [place]. Called [facility]. Fax number to Lab [phone]. UA and CMP orders placed and faxed to [facility]. Fax x 2 successful. Request sent to medical records fax [phone] to obtain copy of cbc. WORKER WORKER * Telephone Encounter - Norma Durbin MD - 03/23/2022 11:14 AM CST Need appropriate labs done since none have been done in a while. Please see if patient has a CBC CMP and urinalysis, and if not please order them. Also please make sure that patient gets to be seen by me as well WORKER * Telephone Encounter - Kaleigh Cerna RN - 03/23/2022 10:51 AM JET WORKER Voicemail left from patient. Her pharmacy [facility] closed for good and she is asking for her prescriptions from Diana Gao PAC to be sent to [facility], [address] [place] [address]. Per chart review, balsalazide noted to be prescribed by Diana MASON on 08/28/2021 for a year supply. Called patient back. Left message for patient to call back. Balsalazide order pended for remaining prescription refill to preferred pharmacy. Please review andapprove. 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
--- OUTSIDE RECORDS SUMMARY | 2024-02-06 18:54 | XMS_ITS | Encounter Summary ---
Author Organization [facility] Address [address] [place] [address] Phone Care Team Providers Care Armhole Sewer Name Role Phone Balbina Calderon MD Primary Care Provider Yair Vickers MD Unavailable [phone] Norma Durbin MD Unavailable [phone] Reason for Visit * Reason Comments Follow-up Encounter Details Date Type Department Care Team (Latest Contact Info) Description 04/22/2022 3:30 PM PENSIONHOLDER INFORMATION CLERK Office Visit [facility] - Gastroenterology [facility] [address] [place] [address] Norma Durbin MD [address] [place] [address] Left sided ulcerative colitis without complication (HCC) (Primary Dx) Discharge Disposition: Discharged to home or Selfcare [...] on file Legal Sex Female 1:37 PM PENSIONHOLDER INFORMATION CLERK Gender Identity Not on file Sexual Orientation Not on file COVID-19 Exposure Response Date Recorded In the last 10 days, have yo u been in contact with someone who was confirmed or suspected to have Coronavirus/COVID-19? No / Unsure 04/22/2022 3:24 PM PENSIONHOLDER INFORMATION CLERK documented as of this encounter Last Filed Vital Signs Vital Sign Reading Time Taken Comments Blood Pressure 122/92 04/22/2022 4:13 PM PENSIONHOLDER INFORMATION CLERK Pulse 86 04/22/2022 4:13 PM PENSIONHOLDER INFORMATION CLERK Temperature 37.1 ??C (98.8 ??F) 04/22/2022 4:13 PM CS T Respiratory Rate 16 04/22/2022 4:13 PM PENSIONHOLDER INFORMATION CLERK Oxygen Saturation 100% 04/22/2022 4:13 PM PENSIONHOLDER INFORMATION CLERK Inhaled Oxygen Concentration - - Weight 107.9 kg (237 lb 12.8 oz) 04/22/2022 4:13 PM PENSIONHOLDER INFORMATION CLERK Height 177.8 cm (5' 10 ) 04/22/2022 4:13 PM PENSIONHOLDER INFORMATION CLERK Body Mass Index 34.12 04/22/2022 4:13 PM PENSIONHOLDER INFORMATION CLERK documented in this encounter Progress Notes * Norma Durbin MD - 04/22/2022 3:30 PM CST SAPG GASTRO [facility] - GASTROENTEROLOGY [facility] [address] [facility] [address] Dept: [phone] Dept Loc: [phone] Loc Patient: Rossy Sauceda : 1975 Sex: female Medical Decision Making: Assessment & Plan Diagnoses and all orders for this visit: Left sided ulcerative colitis without complication (HCC) - INFLAMMATORY BOWEL DISEASE SEROLOGY PANEL, SERUM, DÍAZ IBDP2; Future - C-REACTIVE PROTEIN (CRP) QUANT; Future - ERYTHROCYTE SEDIMENTATION RATE (ESR); Future - COMPLETE BLOOD COUNT (CBC) WITH DIFF; Future - CMP (COMPREHENSIVE METABOLIC PANEL); Future - CALPROTECTIN, FECES Other orders - Tabby 1.5/30 1.5-30 MG-MCG Tablet; Take 1.5 mg by mouth. We will proceed with the full colonoscopy and the above results to fully assess the extent of her disease. Initial colonoscopy in 2012 showed left-sided colitis addition to a large polyp and she was started on balsalazide but subsequent colonoscopy few years later showed the colon to be normal. Hasremained totally asymptomatic on balsalazide but has remained on the medication because of severe Crohn's colitis in her twin sister who needed total proctocolectomy and ileostomy and is under treatment for years at [facility] No follow-ups on file. Subjective Subjective: HPI: Rossy Sauceda is a 46 y.o. female presents for Follow-up patient presents for follow-up today. In 2012 she had rectal bleeding and she had a colonoscopy done in [facility]. Left-sided ulcerative colitis and a rectal large polyp was seen. She was subsequently started on balsalazide and has remained on that medication. In 2018 she had another colonoscopy done showing that to be completely normal. Symptoms since then. He is not been able to reduce her medication due to fear of flare especially since her twin sister had to have total proctocolectomy for complicated colitis which finally was found to be Crohn's colitis although released for felt to be ulcerative colitis. Has absolutely no symptoms though. 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 Problem List: Patient Active Problem List Diagnosis ??? 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) ??? Polyp of colon ??? Gastroesophageal reflux disease Past Medical History: Past Medical History Positives Diagnosis Date ??? Abnormal heart rate ??? Asthma ??? Hypertension ??? UC (ulcerative colitis) (HCC) Past Surgical History: Past Surgical History: Procedure Laterality Date ??? APPENDECTOMY Family History: Family History Problem Relation Age of Onset ??? Congenital Heart Disease Mother ??? Chronic Obstructive Pulmonary Disease Mother ??? Crohn's Disease Sister ??? Lung Cancer Maternal Grandmother Social History: Social History Socioeconomic History ??? Marital status: Single Tobacco Use ??? Smoking status: Never ??? Smokeless tobacco: Never Vaping Use ??? Vaping Use: Never used Substance and Sexual Activity ??? Alcohol use: Not Currently ??? Drug use: Not Currently ??? Sexual activity: Not Currently Medications: Current Outpatient Medications: ??? Albuterol Sulfate (PROAIR HFA IN) ??? balsalazide (COLAZAL) 750 MG Capsule ??? Fluticasone-Salmeterol (ADVAIR DISKUS IN) ??? Tabby 1.5/30 1.5-30 MG-MCG Tablet ??? metoprolol tartrate (LOPRESSOR) 25 MG Tablet ??? Norethin Daniel-Eth Estrad-FE (03/12 PO) ??? pantoprazole (PROTONIX) 40 MG Tablet Delayed Response Allergies: No Known Allergies Review of systems was negative, except as documented in HPI. Objective Objective: BP (!) 122/92 Pulse 86 Temp 98.8 ??F (37.1 ??C) Resp 16 Ht 5' 10 (1.778 m) Wt 237 lb 12.8 oz (107.9 kg) SpO2 100% BMI 34.12 kg/m?? BP (!) 122/92 Pulse 86 Temp 98.8 ??F (37.1 ??C) Resp 16 Ht 5' 10 (1.778 m) Wt 237 lb 12.8 oz (107.9 kg) SpO2 100% BMI 34.12 kg/m?? General: Alert, cooperative, no distress, appears stated age. Head: Normocephalic, without obvious abnormality, atraumatic. Eyes: Conjunctivae/corneas clear. Ears: Normal external ear canals both ears. Nose: Nares normal. Throat: Lips, mucosa, and tongue normal. Neck: Supple, symmetrical, trachea midline, no adenopathy, thyroid: no enlargment/tenderness/nodules, no carotid bruit and no JVD. Back: Symmetric, no curvature. ROM normal. No CVA tenderness. Lungs: Clear to auscultation bilaterally. Chest wall: No tenderness or deformity. Heart: Regular rate and rhythm, S1, S2 normal, no murmur, click, rub or gallop. Abdomen: Soft, non-tender. Bowel sounds normal. No masses, No organomegaly. Extremities: Extremities normal, atraumatic, no cyanosis or edema. Pulses: 2+ and symmetric all extremities. Skin: Skin color, texture, turgor normal. No rashes or lesions. Lymph nodes: Cervical, supraclavicular, and axillary nodes normal. Neurologic: CNII-XII intact. Normal strength, sensation and reflexes throughout. Labs: No results found for: WBC, HEMOGLOBIN, HEMATOCRIT, PLATELETCNT, MCV No results found for: INR No results found for: SODIUM, POTASSIUM, CHLORIDE, CO2VEN, ANIONGAP, GLUCOSE, BUN, CREATININE, BCRATIO8, TOTALPROTEIN, ALBUMIN, AGRATIO, CALCIUM, TBIL, SGOTAST, SGPTALT, ALKALINEPHO, GFRNA, GFRA No results found. Review of diagnostic tests: Previous colonoscopy and biopsy reports Norma Durbin MD IONHOLDER INFORMATION CLERK documented in this encounter Plan of Treatment Not on file documented as of this encounter Results * (ABNORMAL) CMP (COMPREHENSIVE METABOLIC PANEL) (05/01/2022 11:23 AM PENSIONHOLDER INFORMATION CLERK) SODIUM 139 136 - 144 mmol/L 05/01/2022 12:35 PM PENSIONHOLDER INFORMATION CLERK [facility] POTASSIUM 3.7 3.5 - 5.1 mmol/L 05/01/2022 12:35 PM [facility] CHLORIDE 103 100 - 110 mmol/L 05/01/2022 12:35 PM [facility] CO2, VENOUS 26 22 - 32 mmol/L 05/01/2022 12:35 PM [facility] ANION GAP 13.7 8.0 - 20.0 mmol/L 05/01/2022 12:35 PM PENSIONHOLDER INFORMATION CLERK [facility] GLUCOSE 80 70 - 99 mg/dL 05/01/2022 12:35 PM [facility] BUN 6 6 - 20 mg/dL 05/01/2022 12:35 PM [facility] CREATININE, BLOOD 0.76 0.60 - 1.10 mg/dL 05/01/2022 12:35 PM [facility] BUN/CREATININE RATIO 8(L) 12 - 20 ratio 05/01/2022 12:35 PM [facility] TOTAL PROTEIN 7.3 6.0 - 8.3 g/dL 05/01/2022 12:35 PM [facility] ALBUMIN 3.9 3.5 - 5.2 g/dL 05/01/2022 12:35 PM [facility] Comment: The colormetric methods used for the determination of Albumin may lead to falsely elevated test results in patients suffering from renal failure or insufficiency due to interference with other proteins. A/G RATIO 1.1 1.0 - 2.0 05/01/2022 12:35 PM PENSIONHOLDER INFORMATION CLERK [facility] CALCIUM 9.0 8.9 - 10.3 mg/dL 05/01/2022 12:35 PM PENSIONHOLDER INFORMATION CLERK [facility] T BILI 0.5 <=1.2 mg/dL 05/01/2022 12:35 PM PENSIONHOLDER INFORMATION CLERK [facility] SGOT (AST) 10 <=32 U/L 05/01/2022 12:35 PM PENSIONHOLDER INFORMATION CLERK [facility] SGPT (ALT) 9 <=41 U/L 05/01/2022 12:35 PM PENSIONHOLDER INFORMATION CLERK [facility] ALKALINE PHOSPHATASE 69 35 - 105 U/L 05/01/2022 12:35 PM PENSIONHOLDER INFORMATION CLERK [facility] IS THE PATIENT REQUIRED TO BE FASTING? No 05/01/2022 12:35 PM PENSIONHOLDER INFORMATION CLERK [facility] GFR, ESTIMATED >60 >=60 05/01/2022 12:35 PM PENSIONHOLDER INFORMATION CLERK [facility] Comment: Creatinine Clearance is the preferred criteria for selecting drug dose adjustments in renally impaired patients. ??The GFR is provided as additional pertinent clinical information. GFR is reported in mL/min/1.73 sq m. Calculation based on the Chronic Kidney Disease Epidemiology Collaboration (CKD- EPI) equation refit without adjustment for race. GFR, EST. >60 >=60 023 12:35 PM PENSIONHOLDER INFORMATION CLERK [facility] GFR, EST. NONAFRICAN >60 >=60 05/01/2022 12:35 PM PENSIONHOLDER INFORMATION CLERK [facility] Blood Venipuncture / Unknown 05/01/2022 11:23 AM PENSIONHOLDER INFORMATION CLERK 05/01/2022 12:15 PM PENSIONHOLDER INFORMATION CLERK us Norma Durbin MD CHEMISTRY ORDERABLES Final Resu lt [facility] [address] [place] [address] * (ABNORMAL) ERYTHROCYTE SEDIMENTATION RATE (ESR) (05/01/2022 11:23 AM PENSIONHOLDER INFORMATION CLERK) ESR (SED RATE, ERYTHROCYTE SEDIMENTATION RATE) 27(H) <20 mm/h 05/01/2022 12:19 PM PENSIONHOLDER INFORMATION CLERK [facility] Comment: Patients presenting with increased level of fibrinogen, gamma globulins, or abnormally shaped RBCs could affect the results for the erythrocyte sedimentation rate (ESR). Results should be clinically correlated. Blood Venipuncture / Unknown 05/01/2022 11:23 AM PENSIONHOLDER INFORMATION CLERK 05/01/2022 12:15 PM PENSIONHOLDER INFORMATION CLERK Norma Durbin MD HEMATOLOGY ORDERABLES Final Res ult Performing Organization Address City/[facility]/ZIP Co de Phone Number [facility] [address] [place] [address] * (ABNORMAL) C-REACTIVE PROTEIN (CRP) QUANT (05/01/2022 11:23 AM PENSIONHOLDER INFORMATION CLERK) Pathologist [facility] C-REACTIVE PROTEIN 2.72(H) <0.50 mg/dL 05/01/2022 12:35 PM PENSIONHOLDER INFORMATION CLERK [facility] Blood Venipuncture / Unknown 05/01/2022 11:23 AM PENSIONHOLDER INFORMATION CLERK 05/01/2022 12:15 PM PENSIONHOLDER INFORMATION CLERK Norma Durbin MD CHEMISTRY ORDERABLES Final Resu lt Performing Organization Address City/[facility]/ZIP Co de Phone Number [facility] [address] [place] [address] * (ABNORMAL) INFLAMMATORY BOWEL DISEASE SEROLOGY PANEL, SERUM, DÍAZ IBDP2 (05/01/2022 11:23 AM PENSIONHOLDER INFORMATION CLERK) Pathologist [facility] IBDP2, CYTOPLASMIC NEUTROPHILIC AB IBD, S Positive (A) Negative 05/06/2022 4:39 PM CDT [facility] IBDP2, ANCA2 INTERPRETATION SEE NOTE 05/06/2022 4:39 PM CDT [facility] Comment: Results are not conclusive as some patients with Crohn's disease have detectable pANCA and some patients with ulcerative colitis have detectable IgA or IgG S. cerevisiae antibodies. Correlation with clinical symptoms, endoscopy and biopsy findings is required to confirm the diagnosis. ADDITIONAL INFORMATION This test was developed and its performance characteristics determined by [facility] in a manner consistent with CLIA requirements. This test has not been cleared or approved by the U.S. Food and Drug Administration. SCERA, SACCHAROMYCES CEREVISIAE AB, IGA, S 178.4(H) <20.0 (Negative) RU/mL 05/06/2022 4:39 PM CDT [facility] Comment: ADDITIONAL INFORMATION This test was developed and its performance characteristics determined by [facility] in a manner consistent with CLIA requirements. This test has not been cleared or approved by the U.S. Food and Drug Administration. SCERG, SACCHAROMYCES CEREVISIAE ANTIBODY, IGG, SERUM 47.2(H) <20.0 (Negative) RU/mL 05/06/2022 4:39 PM CDT [facility] Comment: ADDITIONAL INFORMATION This test was developed and its performance characteristics determined by [facility] in a manner consistent with CLIA requirements. This test has not been cleared or approved by the U.S. Food and Drug Administration. Test Performed by: [facility] - [address] [address] Trade Specialist: Amandeep Beard M.D. Ph.D.; CLIA# [id number] Blood Venipuncture / Unknown 05/01/2022 11:23 AM PENSIONHOLDER INFORMATION CLERK 05/01/2022 12:15 PM PENSIONHOLDER INFORMATION CLERK Norma Durbin MD LAB SEND OUTS Final Result [facility] [address] [place] [address], documented in this encounter Visit Diagnoses Diagnosis Left sided ulcerative colitis without complication (HCC)- Primary documented in this encounter Care Teams Armhole Sewer Relationship Specialty Start Date End Date Balbina Calderon MD [address] [place] [address] PCP - General Internal Medicine 01/02/20 Yair Vickers MD 2 [facility] [address] [address] Consulting Physician Cardiovascular Disease - Cardiology 08/28/21 Norma Durbin MD [address] [place] [address] Consulting Physician Gastroenterology 04/22/22 documented as of this encounter
--- OUTSIDE RECORDS SUMMARY | 2024-02-06 18:54 | XMS_ITS | Encounter Summary ---
Author Organization [facility] Address [address] [place] [address] Phone Care Team Providers Care Chemical Maker Name Role Phone Balbina Calderon MD Primary Care Provider Yair Vickers MD Unavailable Norma Durbin MD Unavailable [phone] Encounter Details Date Type Department Care Team (Late st Contact Info) Description 05/13/2022 Telephone [facility] [address] [place] [address] Norma Durbin MD [address] [place] [address] Social History Tobacco Use Types Packs/Day Years Used Date Smoking Tobacco: Never Smokeless Tobacco: Never Alcohol Use Standard Drinks/Week Comments Not Currently 0 (1 standard drink = 0.6 oz pur e alcohol) Sexually Active Control Partners Comments Not Currently Comments No Sex and Gender Information Value Date Recorded Sex Assigned at Not on file Legal Sex Female 1:37 PM CLASSER Gender Identity Not on file Sexual Orientation Not on file COVID-19 Exposure Response Date Recorded In the last 10 days, have yo u been in contact with someone who was confirmed or suspected to have Coronavirus/COVID-19? No / Unsure 05/08/2022 10:22 AM CDT documented as of this encounter Miscellaneous Notes * Telephone Encounter - Kaleigh Cerna RN - 05/13/2022 4:33 PM CDT Colonoscopy noted to be scheduled for 07/12/2022. Reviewed with Dr. Durbin, if patient is controlled then 07/12/2022 is ok, if patient is having symptoms then it will need to be done sooner. Called patient. Reviewed result note and message above. Patient denies any problems at time of call. Advised patient to call if any new or worsening of symptoms. Patient is aware and verbalizes understanding. * Telephone Encounter - Kaleigh Cerna RN - 05/13/2022 4:33 PM CDT ----- Message from Norma Durbin MD sent at 05/11/2022 1:15 PM CDT ----- Positive inflammation marker in stool test documented in this encounter Plan of Treatment Not on file documented as of this encounter Visit Diagnoses Not on filedocumented in this encounter Care Teams Chemical Maker Relationship Specialty Start Date End Date Balbina Calderon MD [address] [place] [address] PCP - General Internal Medicine 01/02/20 Yair Vickers MD [address] [facility] [address] [place] [address] Consulting Physician Cardiovascular Disease - Cardiology 08/28/21 Norma Durbin MD [address] [place] [address] Consulting Physician Gastroenterology 04/22/22 documented as of this encounter
--- OUTSIDE RECORDS SUMMARY | 2024-02-06 18:54 | XMS_ITS | Encounter Summary ---
Author Organization [facility] Address [address] [place] [address] Phone Care Team Providers Care Hedge Fund Accountant Name Role Phone Balbina Calderon MD Primary Care Provider Reason for Visit * Reason Comments Follow-up 6 Months Encounter Details Date Type Department Care Team (Latest Contact Info) Description 10/14/2020 11:20 AM CDT Office Visit [facility] - Gastroenterology [facility] [address] [place] [address] Diana Gao PAC [address] [place] [address] 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) Discharge Disposition: [...] on file Legal Sex Female 1:37 PM R&D LAB TECHNICIAN Gender Identity Not on file Sexual Orientation Not on file COVID-19 Exposure Response Date Recorded In the last month, have you been in contact with someone who was confirmed or suspected to have Coronavirus / COVID-19? No / Unsure 10/14/2020 11:29 AM CDT documented as of this encounter Last Filed Vital Signs Vital Sign Reading Time Taken Comments Blood Pressure 142/78 10/14/2020 11:39 AM CDT Pulse 72 10/14/2020 11:39 AM CDT Temperature 36.7 ??C (98.1 ??F) 10/14/2020 11:39 AM C DT Respiratory Rate 20 10/14/2020 11:39 AM CDT Oxygen Saturation 99% 10/14/2020 11:39 AM CDT Inhaled Oxygen Concentration - - Weight 106.6 kg (235 lb) 10/14/2020 11:39 AM CDT Height 182.9 cm (6') 10/14/2020 11:39 AM CDT Body Mass Index 31.87 10/14/2020 11:39 AM CDT documented in this encounter Patient Instructions * Patient Instructions* Diana Gao PAC - 10/14/2020 11:20 AM CDT Reduce to 3 tabs once daily and advise if problems Call in 6 weeks with update If you had lab work ordered at [...] and reviewed all the results. Please arrive 15 minutes prior to all appointments Please schedule follow-up in near future to discuss any concerns that were not addressed fully at today's office visit. To continue to provide excellent patient care, you may receive a survey regarding your visit today.To help us serve you better, please complete and return. These surveys are completely anonymous. If you have any concerns/ questions regarding today's visit please call. documented in this encounter Progress Notes * Diana Gao PAC - 10/14/2020 11:20 AM CDT PROBLEM LIST: Patient Active Problem List Diagnosis ??? 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) ??? Polyp of colon ??? Gastroesophageal reflux disease Rossy Sauceda is a . 45 y.o. female who presents with Chief Complaint Patient presents with ??? Follow-up 6 Months . DIAGNOSIS, PLAN AND FOLLOW UP: Diagnoses and all orders for this visit: 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) - balsalazide (COLAZAL) 750 MG Capsule; 3 capsules once daily S: Presents for routine follow-up for ulcerative proctitis. Doing ok- occasional constipation responds to raisins/ metamucil. Denies blood mucus or pain. Normal appetite. Denies early satiety. Deniesheartburn/ reflux/ nausea/ vomiting/ abdominal pain/ constipation/ diarrhea/ mucus or blood in stools/ toilet or on tissue. Denies black or tarry stools. Reports has been taking her medication 3 tabsonce daily for the last several days/week as her sister was in the hospital and she would forget totake the 2nd dose. Reports has been doing well. Does report in the past had been advised she could reduce the medication to just once daily. Last colonoscopy 03/04/17 repeat 5-7 years. ALLERGIES: No Known Allergies MEDICATIONS: Current Outpatient Medications Medication Sig Dispense Refill ??? Albuterol Sulfate (PROAIR HFA IN) take by inhalation. ??? balsalazide (COLAZAL) 750 MG Capsule 3 capsules once daily 180 Capsule 0 ??? Fluticasone-Salmeterol (ADVAIR DISKUS IN) take by [...] Social History Narrative ??? Not on file Social Determinants of Health Social determinant risk not applicable to this patient. FAMILY HX: Family History Problem Relation Age of Onset ??? Congenital Heart Disease Mother ??? Chronic Obstructive Pulmonary Disease Mother ??? Crohn's Disease Sister ??? Lung Cancer Maternal Grandmother VITAL SIGNS: Vitals: 10/14/20 1139 BP: 142/78 Pulse: 72 Resp: 20 Temp: 98.1 ??F (36.7 ??C) SpO2: 99% Weight: 235 lb (106.6 kg) [...] Affect congruent with mood. Normal thought process. Return in about 1 year (around 10/14/2021) for proctits/ medication management. Medication changes/ treatment plan reviewed. Risks and benefits discussed. Expressed understanding. Patient Instructions Reduce to 3 tabs once daily and advise if problems Call in 6 weeks with update If you had lab work ordered at this visit, we will contact you regarding the results once all results have been received and reviewed. You may be able to see results in your my chart as they come in, please remember the computer is only given parameters for what is ???normal?? or ???abnormal?? . The significance of anything in the ???abnormal?? range is based on the remaining test results. Again we will contact you when we have received and reviewed all the results. Please arrive 15 minutes prior to all appointments Please schedule follow-up in near future to discuss any concerns that were not addressed fully at today's office visit. To continue to provide excellent patient care, you may receive a survey regarding your visit today.To help us serve you better, please complete and return. These surveys are completely anonymous. If you have any concerns/ questions regarding today's visit please call. documented in this encounter Plan of Treatment Not on file documented as of this encounter Visit Diagnoses Diagnosis 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)- Primary documented in this encounter Care Teams Hedge Fund Accountant Relationship Specialty Start Date End Date Balbina Calderon MD [address] [place] [address] PCP - General Internal Medicine 01/02/20 documented as of this encounter
--- OUTSIDE RECORDS SUMMARY | 2024-02-06 18:54 | XMS_ITS | Encounter Summary ---
Author Organization [facility] Address [address] [place] [address] Phone Care Team Providers Care Advertising Operations Coordinator Name Role Phone Balbina Calderon MD Primary Care Provider Reason for Visit * Reason Comments Medication Refill Encounter Details Date Type Department Care Team (Late st Contact Info) Description 09/29/2020 Refill [facility] - [facility] [address] [place] [address] Diana Gao PAC [address] [place] [address] Medication Refill Social History Tobacco Use Types Packs/Day Years Used Date Smoking Tobacco: Never Smokeless Tobacco: Never Alcohol Use Standard Drinks/Week Comments Not Currently 0 (1 standard drink = 0.6 oz pur e alcohol) Sexually Active Control Partners Comments Not Currently Comments No Sex and Gender Information Value Date Recorded Sex Assigned at Not on file Legal Sex Female 1:37 PM MEDICAL DETAIL REPRESENTATIVE Gender Identity Not on file Sexual Orientation Not on file documented as of this encounter Miscellaneous Notes * Telephone Encounter - Marcial Caraballo CMA - 09/30/2020 10:33 AM CDT LMOM for patient to call office and schedule visit for 1 year evaluation/medication management appointment. Balsalazide was refilled for 90 days. Needs to be seen prior that * Telephone Encounter - Diana Gao PAC - 09/30/2020 7:45 AM CDT Needs office visit for evaluation/ management. Renewed for 90 days. * Telephone Encounter - Marcial Caraballo CMA - 09/29/2020 4:25 PM CDT Pharmacy requesting refill of: Requested Prescriptions Pending Prescriptions Disp Refills ??? balsalazide (COLAZAL) 750 MG Capsule [Pharmacy Med Name: BALSALAZIDE 750MG CAP APOT] 180 Capsule 5 Sig: TAKE THREE CAPSULES BY MOUTH TWO TIMES A DAY Last fill: 08/18/2020 Patients last OV with GI: 01/28/2020 Next Office Visit with GI: None scheduled documented in this encounter Plan of Treatment Not on file documented as of this encounter Visit Diagnoses Diagnosis 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) documented in this encounter Care Teams Advertising Operations Coordinator Relationship Specialty Start Date End Date Balbina Calderon MD [address] [place] [address] PCP - General Internal Medicine 01/02/20 documented as of this encounter
--- OUTSIDE RECORDS SUMMARY | 2024-02-06 18:54 | XMS_ITS | Encounter Summary ---
Author Organization [facility] Address [address] [place] [address] Phone Care Team Providers Care Floor Covering Installer Name Role Phone Balbina Calderon MD Primary Care Provider Yair Vickers MD Unavailable [phone] Norma Durbin MD Unavailable [phone] Reason for Visit * Auth/Cert (Routine) Specialty Diagnoses / Procedures Referred By Contmason t Referred To Contact Diagnoses ULCERATIVE COLITIS Procedures COLONOSCOPY Norma Durbin MD [address] [place] [address] Phone: tel: fax: Referral ID Status Reason Start Date Expiration Date Visits Re quested Visits Authorized [id number] 1 1 Encounter Details Date Type Department Care Team (Late st Contact Info) Description 07/12/2022 11:43 AM CDT [facility] [address] [place] [id number] Justus Ojeda APRN, URBAN ANTHROPOLOGIST [address] [place] [address] Anesthesia Record Procedure Summary Procedure Name Responsible Anesthesiologist Anesthesia Start Time Anesthesia Stop Time COLONOSCOPY-deepa appendicile inflammed patch biopsy-normal ascending colon biopsy-transverse colon biopsy-descending colon biopsy-sigmoid colon inflammed patch biopsy-normal rectal biopsy Justus Ojeda APRN, CRNA 07/12/22 1143 07/12/22 1230 Events Date Time Event Comment 07/12/2022 1129 1143 An Start 1143 An Start Data 1143 ANASSESSCMPLT 1143 Start Supplemental O2 1143 Anesthesia Ready 1215 Stop Supplemental O2 1215 Stop Data Collection 1215 Transort to Postop 1230 Handoff to RN I completed my SBAR handoff to the receiving nurse. Last vitals BP: 136/77 Temp: 36 ??C (96.8 ??F) Pulse: 80 Resp: 18 SpO2: 100 % 1230 An Stop Last vitals: BP : 136/77 Temp: 36 ??C (96.8 ??F) Pulse: 80 Resp: 18 SpO2: 100 % Meds Name Total propofol 10 mg/mL 600 mg lactated ringers infusion 300 mL * Agents Name Inspired CO2 (mmHg) ETCO2 (mmHg) * Blood No blood administrations on file. Lines, Drains, and Airways Type Details Placement Removal PIV-Single Lumen Placement Date: 07/12/22; Placement Time: 1130; Catheter Size: 22 G; Orientation: Posterior, Right; Location: Hand; Removal Date: 07/12/22; Removal Time: 1237 07/12/22 1130 by Luzma Stovall RN 07/12/22 1237 by Claudette Monte RN documented in this encounter Social History Tobacco Use Types Packs/Day Years Used Date Smoking Tobacco: Never Smokeless Tobacco: Never Alcohol Use Standard Drinks/Week Comments Not Currently 0 (1 standard drink = 0.6 oz pur e alcohol) Sexually Active Control Partners Comments Not Currently Comments No Sex and Gender Information Value Date Recorded Sex Assigned at Not on file Legal Sex Female 1:37 PM WOOD FORM BUILDER Gender Identity Not on file Sexual Orientation Not on file COVID-19 Exposure Response Date Recorded In the last 10 days, have yo u been in contact with someone who was confirmed or suspected to have Coronavirus/COVID-19? No / Unsure 07/12/2022 10:54 AM CDT documented as of this encounter OR Notes * Anesthesia Postprocedure Evaluation - Justus Ojeda APRN, CRNA - 07/12/2022 12:31 PM CDT Patient: Rossy Sauceda Procedure Summary Date: 07/12/22 Room / Location: [facility] GI LAB / [facility] GI LAB MAIN Anesthesia Start: 1143 Anesthesia Stop: 1230 Procedure: COLONOSCOPY-deepa appendicile inflammed patch biopsy-normal ascending colon biopsy-transverse colon biopsy-descending colon biopsy-sigmoid colon inflammed patch biopsy-normal rectal biopsy Diagnosis: (COLONOSCOPY-deepa appendicile inflammed patch biopsy-normal ascending colon biopsy-transverse colon biopsy-descending colon biopsy-sigmoid colon inflammed patch biopsy-normal rectal biopsy) Surgeons: Norma Durbin MD Responsible Provider: Justus Ojeda APRN, CRNA Anesthesia Type: MAC ASA Status: 3 Anesthesia Type: MAC Last vitals Vitals Value Taken Time BP 136/77 07/12/22 1220 Temp 36 ??C (96.8 ??F) 07/12/22 1220 Pulse 80 07/12/22 1220 Resp 18 07/12/22 1220 SpO2 100 % 07/12/22 1220 Pain score: 0 Pain management: adequate Patient location during evaluation: GI Lab Patient participation: Fully recovered to participate Level of consciousness: awake Cardiovascular status: acceptable Respiratory status: acceptable Hydration status: acceptable Comments: VS per RN flow sheet Anesthetic complications: no Airway patency: patent Nausea and Vomiting: none * Anesthesia Preprocedure Evaluation - Justus Ojeda APRN, CRNA - 07/12/2022 11:28 AM CDT Anesthesia Evaluation Procedure Information Date/Time: 07/12/22 1130 Procedure: COLONOSCOPY Location: [facility] GI LAB / [facility] GI LAB MAIN Surgeons: Norma Durbin MD Patient summary reviewed and Nursing notes reviewed No history of anesthetic complications No family history of anesthesia reaction Allergies: No Known Allergies Patient allergies reviewed. Medications: Current Facility-Administered Medications: ??? lactated ringers infusion, 20 mL/hr, Intravenous, Continuous, Norma Durbin MD Medications Prior to Admission: Albuterol Sulfate (PROAIR HFA IN), take by inhalation., Disp: , Rfl: balsalazide (COLAZAL) 750 MG Capsule, TAKE THREE CAPSULES BY MOUTH ONCE DAILY, Disp: 270 Capsule, Rfl: 1 Fluticasone-Salmeterol (ADVAIR DISKUS IN), take by inhalation [...] 40 mg tablet,delayed release, Disp: , Rfl: Patient medications reviewed. Airway Mallampati: II TM distance: >3 FB Neck ROM: full Dental - normal exam Pulmonary - normal exam (+) asthma, Cardiovascular - normal exam (+) hypertension, dysrhythmias, Neuro/Psych GI/Hepatic/Renal (+) bowel prep Endo/Other Risks, benefits, alternatives discussed with:patient. Anesthesia Plan ASA 3 MAC Additional Plan: general intravenous induction Anesthetic plan and risks discussed with Patient. Plan discussed with URBAN ANTHROPOLOGIST. documented in this encounter Plan of Treatment Not on file documented as of this encounter Visit Diagnoses Not on filedocumented in this encounter Administered Medications Inactive Administered Medications - up to 3 most recent administrations Medication Order MAR Action Action Date Dose Rate Site propofol (DIPRIVAN) injection Intravenous, ONCE (in OR), Starting on Tue07/12/22 at 1146, Until Tue07/12/22 at 1230 Given 07/12/2022 12:09 PM CDT 100 mg Given 07/12/2022 12:01 PM CDT 100 mg Given 07/12/2022 11:54 AM CDT 200 mg documented in this encounter Care Teams Floor Covering Installer Relationship Specialty Start Date End Date Balbina Calderon MD [address] [place] [id number] PCP - General Internal Medicine 01/02/20 Yair Vickers MD 2 [facility] [address] [address] Consulting Physician Cardiovascular Disease - Cardiology 08/28/21 Norma Durbin MD [address] [place] [address] Consulting Physician Gastroenterology 04/22/22 documented as of this encounter
--- OUTSIDE RECORDS SUMMARY | 2024-02-06 18:54 | XMS_ITS | Encounter Summary ---
Author Organization [facility] Address [address] [place] [address] Phone Care Team Providers Care Coding Educator Name Role Phone Balbina Calderon MD Primary Care Provider Yair Vickers MD Unavailable Norma Durbin MD Unavailable [phone] Reason for Visit * Reason Onset Date Comments Results 05/07/2022 Encounter Details Date Type Department Care Team (Late st Contact Info) Description 05/07/2022 Telephone [facility] - Gastroenterology [facility] [address] [place] [address] Norma Durbin MD [address] [place] [address] Results Social History Tobacco Use Types Packs/Day Years Used Date Smoking Tobacco: Never Smokeless Tobacco: Never Alcohol Use Standard Drinks/Week Comments Not Currently 0 (1 standard drink = 0.6 oz pur e alcohol) Sexually Active Control Partners Comments Not Currently Comments No Sex and Gender Information Value Date Recorded Sex Assigned at Not on file Legal Sex Female 1:37 PM FLOUR WORKER Gender Identity Not on file Sexual Orientation Not on file COVID-19 Exposure Response Date Recorded In the last 10 days, have yo u been in contact with someone who was confirmed or suspected to have Coronavirus/COVID-19? No / Unsure 05/01/2022 11:14 AM FLOUR WORKER documented as of this encounter Miscellaneous Notes * Telephone Encounter - Kaleigh Cerna RN - 05/07/2022 10:06 AM CDT Patient is aware and verbalizes understanding. Patient denies any new or worsening of symptoms. States she is not having any symptoms. She is taking balsalazide. She is scheduled for colonoscopy on 07/12/2022. Is this ok? * Telephone Encounter - Kaleigh Cerna RN - 05/07/2022 10:04 AM CDT ----- Message from Norma Durbin MD sent at 05/07/2022 7:48 AM CDT ----- Disease is consistent with inflammatory bowel disease and the serologies more consistent with Crohn's colitis. Please schedule a colonoscopy. documented in this encounter Plan of Treatment Not on file documented as of this encounter Visit Diagnoses Not on filedocumented in this encounter Care Teams Coding Educator Relationship Specialty [place] [address] [place] [address] PCP - General Internal Medicine 01/02/20 Yair Vickers MD [address] [facility] [address] [place] [address] Consulting Physician Cardiovascular Disease - Cardiology 08/28/21 Norma Durbin MD [address] [place] [address] Consulting Physician Gastroenterology 04/22/22 documented as of this encounter
--- OUTSIDE RECORDS SUMMARY | 2024-02-06 18:54 | XMS_ITS | Encounter Summary ---
Author Organization [facility] Address [address] [place] [address] Phone Care Team Providers Care Electric Tool Repairer Name Role Phone Balbina Calderon MD Primary Care Provider Encounter Details Date Type Department Care Team (Late st Contact Info) Description 01/29/2020 Telephone [facility] - Gastroenterology - [place] [address] [place] [address] Diana Gao, [facility] [address] [place] [address] Social History Tobacco Use Types Packs/Day Years Used Date Smoking Tobacco: Never Smokeless Tobacco: Never Alcohol Use Standard Drinks/Week Comments Not Currently 0 (1 standard drink = 0.6 oz pur e alcohol) Sexually Active Control Partners Comments Not Currently Comments No Sex and Gender Information Value Date Recorded Sex Assigned at Not on file Legal Sex Female 1:37 PM TELEPHONE DIRECTORY DISTRIBUTOR DRIVER Gender Identity Not on file Sexual Orientation Not on file COVID-19 Exposure Response Date Recorded In the last month, have you been in contact with someone who was confirmed or suspected to have Coronavirus / COVID-19? No / Unsure 01/28/2020 3:08 PM TELEPHONE DIRECTORY DISTRIBUTOR DRIVER documented as of this encounter Miscellaneous Notes * Telephone Encounter - Marcial Caraballo CMA - 01/29/2020 8:49 AM TELEPHONE DIRECTORY DISTRIBUTOR DRIVER Patient returned call, she wanted the prescription to go to the [facility] in [place]. PHONE DIRECTORY DISTRIBUTOR DRIVER * Telephone Encounter - Marcial Caraballo CMA - 01/29/2020 8:25 AM TELEPHONE DIRECTORY DISTRIBUTOR DRIVER LMOM for patient to call office, Diana wasn't sure if this patient needed her Balsalazide 750 MG Capsule prescription to go to her local pharmacy that she has listed or if she was wanting the scriptto be faxed to a mail in pharmacy. I have the written prescription on my desk to be signed by Diana then faxed if different from what is listed PHONE DIRECTORY DISTRIBUTOR DRIVER documented in this encounter Plan of Treatment Not on file documented as of this encounter Visit Diagnoses Not on filedocumented in this encounter Care Teams Electric Tool Repairer Relationship Specialty Start Date End Date Balbina Calderon MD [facility] [place] [address] PCP - General Internal Medicine 01/02/20 documented as of this encounter
--- OUTSIDE RECORDS SUMMARY | 2024-02-06 18:54 | XMS_ITS | Encounter Summary ---
Author Organization [facility] Address [address] [place] [address] Phone Care Team Providers Care Show Host/Hostess Name Role Phone Balbina Calderon MD Primary Care Provider Reason for Visit * Reason Onset Date Comments Medication Refill 12/02/2020 Encounter Details Date Type Department Care Team (Late st Contact Info) Description 12/02/2020 Refill [facility] - [facility] - [place] [address] [place] [address] Diana Gao, [place] [address] [place] [address] Medication Refill Social History Tobacco Use Types Packs/Day Years Used Date Smoking Tobacco: Never Smokeless Tobacco: Never Alcohol Use Standard Drinks/Week Comments Not Currently 0 (1 standard drink = 0.6 oz pur e alcohol) Sexually Active Control Partners Comments Not Currently Comments No Sex and Gender Information Value Date Recorded Sex Assigned at Not on file Legal Sex Female 1:37 PM AUTO DAMAGE INSURANCE APPRAISER Gender Identity Not on file Sexual Orientation Not on file documented as of this encounter Miscellaneous Notes * Telephone Encounter - Kaleigh Cerna RN - 12/02/2020 2:57 PM CDT Patient is aware and verbalizes understanding. Patient is agreeable to labs. Cbc and bmp ordered. Patient asking for labs to be faxed to [facility]. Labs faxed. Fax successful. * Telephone Encounter - Diana Gao PAC - 12/02/2020 2:37 PM CDT Please advise prescription was renewed however she does need to stop in for a a CBC, BMP. If she agrees please place orders. * Telephone Encounter - Kaleigh Cerna RN - 12/02/2020 10:18 AM CDT Refill request for balsalazide, medication failed protocol due to no CBC, serum creatnine or UA on file in the last 12 months. Requested Prescriptions Pending Prescriptions Disp Refills ??? balsalazide (COLAZAL) 750 MG Capsule 180 Capsule 0 Si capsules once daily Last fill: 10/14/2020 Patients last OV with GI: 10/14/2020 Next Office Visit with GI: Recall noted for 1 year follow up in September of 2021. Order pended, please review. 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
--- OUTSIDE RECORDS SUMMARY | 2024-02-06 18:54 | XMS_ITS | Encounter Summary ---
Author Organization [facility] Address [address] [place] [address] Phone Care Team Providers Care Director Of National Sales Name Role Phone Balbina Calderon MD Primary Care Provider Yair Vickers MD Unavailable Norma Durbin MD Unavailable [phone] Reason for Visit * Reason Onset Date Comments Results 05/04/2022 Encounter Details Date Type Department Care Team (Late st Contact Info) Description 05/04/2022 Telephone [facility] - Gastroenterology [facility] [address] [place] [address] Norma Durbin MD [address] [place] [address] Results Social History Tobacco Use Types Packs/Day Years Used Date Smoking Tobacco: Never Smokeless Tobacco: Never Alcohol Use Standard Drinks/Week Comments Not Currently 0 (1 standard drink = 0.6 oz pur e alcohol) Sexually Active Control Partners Comments Not Currently Comments No Sex and Gender Information Value Date Recorded Sex Assigned at Not on file Legal Sex Female 1:37 PM RESEARCH FOOD TECHNOLOGIST Gender Identity Not on file Sexual Orientation Not on file COVID-19 Exposure Response Date Recorded In the last 10 days, have yo u been in contact with someone who was confirmed or suspected to have Coronavirus/COVID-19? No / Unsure 05/01/2022 11:14 AM RESEARCH FOOD TECHNOLOGIST documented as of this encounter Miscellaneous Notes * Telephone Encounter - Kaleigh Cerna RN - 05/04/2022 1:59 PM CDT Patient is aware and verbalizes understanding. * Telephone Encounter - Kaleigh Cerna RN - 05/04/2022 1:48 PM CDT Left message to call back. * Telephone Encounter - Kaleigh Cerna RN - 05/04/2022 1:48 PM CDT ----- Message from Norma Durbin MD sent at 05/04/2022 9:10 AM CDT ----- Normal CBC and chemistry panel. Minimal increase in inflammatory marker. documented in this encounter Plan of Treatment Not on file documented as of this encounter Visit Diagnoses Not on filedocumented in this encounter Care Teams Director Of National Sales Relationship Specialty Start Date End Date Balbina Calderon MD [address] [place] [id number] PCP - General Internal Medicine 01/02/20 Yair Vickers MD [address] [facility] [address] [place] [address] Consulting Physician Cardiovascular Disease - Cardiology 08/28/21 Norma Durbin MD [address] [place] [address] Consulting Physician Gastroenterology 04/22/22 documented as of this encounter
--- OUTSIDE RECORDS SUMMARY | 2024-02-06 18:54 | XMS_ITS | Encounter Summary ---
Author Organization [facility] Address [address] [place] [address] Phone Care Team Providers Care Security And Compliance Project Manager Name Role Phone Balbina Calderon MD Primary Care Provider Yair Vickers MD Unavailable [phone] Norma Durbin MD Unavailable [phone] Encounter Details Date Type Department Care Team (Late st Contact Info) Description 03/27/2022 Telephone [facility] [address] [place] [address] Norma Durbin MD [address] [place] [address] Social History Tobacco Use Types Packs/Day Years Used Date Smoking Tobacco: Never Smokeless Tobacco: Never Alcohol Use Standard Drinks/Week Comments Not Currently 0 (1 standard drink = 0.6 oz pur e alcohol) Sexually Active Control Partners Comments Not Currently Comments No Sex and Gender Information Value Date Recorded Sex Assigned at Not on file Legal Sex Female 1:37 PM ETHOLOGIST Gender Identity Not on file Sexual Orientation Not on file COVID-19 Exposure Response Date Recorded In the last 10 days, have yo u been in contact with someone who was confirmed or suspected to have Coronavirus/COVID-19? No / Unsure 07/12/2022 10:54 AM CDT documented as of this encounter Miscellaneous Notes * Telephone Encounter - Norma Durbin MD - 03/29/2022 10:37 AM CST reviewed LOGIST * Telephone Encounter - Marcial Torre CMA - 03/27/2022 4:00 PM ETHOLOGIST Received faxed lab results on this patient, there were scanned into chart under the Media tab and dated 03/24/22 for you to review LOGIST documented in this encounter Plan of Treatment Not on file documented as of this encounter Visit Diagnoses Not on filedocumented in this encounter Care Teams Security And Compliance Project Manager Relationship Specialty [place] [address] [place] [address] PCP - General Internal Medicine 01/02/20 Yair Vickers MD [address] [facility] [place] [address] Consulting Physician Cardiovascular Disease - Cardiology 08/28/21 Norma Durbin MD [address] [place] [address] Consulting Physician Gastroenterology 04/22/22 documented as of this encounter
--- OUTSIDE RECORDS SUMMARY | 2024-02-06 18:54 | XMS_ITS | Encounter Summary ---
Author Organization [facility] Care Team Providers Care Construction Foreman Name Role Phone Balbina Calderon MD Primary Care Provider Yair Vickers MD Unavailable [phone] Norma Durbin MD Unavailable [phone] Encounter Details Date Type Department Care Team (Latest Contact Info) Description 05/01/2022 Travel Social History Tobacco Use Types Packs/Day Years Used Date Smoking Tobacco: Never Smokeless Tobacco: Never Alcohol Use Standard Drinks/Week Comments Not Currently 0 (1 standard drink = 0.6 oz pur e alcohol) Sexually Active Control Partners Comments Not Currently Comments No Sex and Gender Information Value Date Recorded Sex Assigned at Not on file Legal Sex Female 1:37 PM CAPACITY PLANNER Gender Identity Not on file Sexual Orientation Not on file COVID-19 Exposure Response Date Recorded In the last 10 days, have yo u been in contact with someone who was confirmed or suspected to have Coronavirus/COVID-19? No / Unsure 05/01/2022 11:14 AM CAPACITY PLANNER documented as of this encounter Plan of Treatment Not on file documented as of this encounter Visit Diagnoses Not on filedocumented in this encounter Care Teams Construction Foreman Relationship Specialty Start Date End Date Balbina Calderon MD [address] [place] [address] PCP - General Internal Medicine 01/02/20 Yair Vickers MD 2 [facility] [address] [place] [address] Consulting Physician Cardiovascular Disease - Cardiology 08/28/21 Norma Durbin MD [address] [place] [address] Consulting Physician Gastroenterology 04/22/22 documented as of this encounter
--- OUTSIDE RECORDS SUMMARY | 2024-02-06 18:54 | XMS_ITS | Encounter Summary ---
Author Organization [facility] Care Team Providers Care Manager Office Name Role Phone Balbina Calderon MD Primary Care Provider Yair Vickers MD Unavailable [phone] Norma Durbin MD Unavailable [phone] Encounter Details Date Type Department Care Team (Latest Contact Info) Description 04/21/2023 Travel Social History Tobacco Use Types Packs/Day Years Used Date Smoking Tobacco: Never Smokeless Tobacco: Never Alcohol Use Standard Drinks/Week Comments Not Currently 0 (1 standard drink = 0.6 oz pur e alcohol) Sexually Active Control Partners Comments Not Currently Comments No Sex and Gender Information Value Date Recorded Sex Assigned at Not on file Legal Sex Female 1:37 PM CLAY PRESS OPERATOR Gender Identity Not on file Sexual Orientation Not on file documented as of this encounter Plan of Treatment Not on file documented as of this encounter Visit Diagnoses Not on filedocumented in this encounter Care Teams Manager Office Relationship Specialty Start Date End Date Balbina Calderon MD [address] [place] [address] PCP - General Internal Medicine 01/02/20 Yair Vickers MD [address] [place] [address] [place] [address] Consulting Physician Cardiovascular Disease - Cardiology 08/28/21 Norma Durbin MD [address] [place] [address] Consulting Physician Gastroenterology 04/22/22 documented as of this encounter
--- OUTSIDE RECORDS SUMMARY | 2024-02-06 18:54 | XMS_ITS | Clinical Summary ---
Author Organization [facility] Address [address] [address] Phone Care Team Providers Care Snow Plow Operator Name Role Phone Balbina Calderon MD Primary Care Provider Yair Vickers MD Unavailable [phone] Norma Durbin MD Unavailable [phone] Dom Hilliard MD Unavailable [phone] Allergies No known active allergies Medications pantoprazole (PROTONIX) 40 MG Tablet Delayed Response pantoprazole 40 mg tablet,delayed release Active metoprolol tartrate (LOPRESSOR) 25 MG Tablet 2 times daily. 0 Active Norethin Daniel-Eth Estrad-FE (03/12 PO) Take by mouth. Act kimberly Fluticasone-Salm eterol (ADVAIR DISKUS IN) take by inhalation 2 times daily. Active Albuterol Sulfate (PROAIR HFA IN) take by inhalation. Active Tabby 1.5/30 1.5-30 MG-MCG Tablet Take 1.5 mg by mouth. 3 Active balsalazide (COLAZAL) 750 MG CapsuleIndicatio ns: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) TAKE THREE CAPSULES BY MOUTH EVERY DAY 270 Capsule 12 4 Active Active Problems Problem Noted Date Diagnosed Date Ulcerative proctitis without complication 2019 Polyp of colon 01/28/2020 Gastroesophageal reflux disease 01/28/2020 Immunizations Immunization Administration Dates Next Due Covid-19, Mrna, Lnp-s, Pf, 3 0 Mcg/0.3 Ml Dose (Glycode) 11/28/2020,11/21/2020,03/03/2020,2019 DTP Vaccine 06/18/1982, 9,1977,1977,1977 Influenza, Injectable, Quadrivalent 06/2020,01/11/2020,11/22/2017,2016,01/06/2016 Influenza, high-dose, trivalent, PF 11/21/2014 MMR Vaccine 10/08/1992,10/20/1978 OPV 06/18/1982, 9,1977,1977,1977 TD VACCINE 10/08/1992 TDAP Vaccine 01/22/2021,12/25/2009 Family History Medical History Relation Name Comments Cancer Maternal Aunt 1 Pancreatic Cancer Maternal Aunt 2 Great Breast Cancer Maternal Grandmother Lung Cancer Maternal Grandmother Chronic Obstructive Pulmonary Disease Mother Congenital Heart Disease Mother Crohn's Disease Sister Relation Name Status Comments Maternal Aunt 1 Maternal Aunt 2 Great Alive Maternal Grandmother Mother Sister Social History Tobacco Use Types [...] on file Legal Sex Female 1:37 PM SENIOR SOFTWARE ANALYST Gender Identity Not on file Sexual Orientation Not on file Last Filed Vital Signs Vital Sign Reading Time Taken Comments Blood Pressure 148/88 04/21/2023 4:01 PM SENIOR SOFTWARE ANALYST Pulse 63 04/21/2023 4:01 PM SENIOR SOFTWARE ANALYST Temperature 37 ??C (98.6 ??F) 04/21/2023 4:01 PM SENIOR SOFTWARE ANALYST Respiratory Rate 14 04/21/2023 4:01 PM SENIOR SOFTWARE ANALYST Oxygen Saturation 100% 04/21/2023 4:01 PM SENIOR SOFTWARE ANALYST Inhaled Oxygen Concentration - - Weight 106.5 kg (234 lb 12.8 oz) 04/21/2023 4:01 PM SENIOR SOFTWARE ANALYST Height 177.8 cm (5' 10 ) 04/21/2023 4:01 PM SENIOR SOFTWARE ANALYST Body Mass Index 33.69 04/21/2023 4:01 PM SENIOR SOFTWARE ANALYST Plan of Treatment Health Maintenance Due Date Last Done Comments Hepatitis C Virus (HCV) Screening 1977 Hepatitis B Immunization (1 of 3 - 19+ 3-dose series) 1996 Pap Smear 1998 Cervical Cancer Screening (CCS) 07/05/2007 HPV/Cotest 07/05/2007 Discussion re Starting/Frequency of Mammograms 2017 Influenza Immunization (#1) 10/23/202311/22, 11/21/2021, 12/26/2020, Additional history exists SARS-COV-2 Immunization ( season) 2023 10/05/2021, 11/28/2020, 11/21/2020, Additional history exists DTaP/Tdap/Td Immunization (8 - Td or Tdap) 01/22/2031 01/22/2021, 12/25/2009, 10/08/1992, Additional history exists Colonoscopy 07/12/2032 07/12/2022, 02/21, 09/11/2012 Colorectal Cancer Screening 07/12/2032 Respiratory Syncytial Virus (RSV) Immunization (Adult) (1 - 1-dose 75+ series) 2052 07/12/2022, 02/21, 09/11/2012 Meningococcal Immunization (ACWY) Aged Out No longer eligible based on patient's age to complete this topic Pneumococcal Immunization Combined Aged Out No longer eligible based on patient's age to complete this topic Rotavirus Immunization Aged Out No lo nger eligible based on patient's age to complete this topic Procedures Procedure Name Priority Date/Time Associated Diagnosis Comments COLONOSCOPY Routine 03/04/2017 from Last 3 Months or Most Recently Relevant to Health Maintenance Results * COLONOSCOPY (03/04/2017) Steve Elizalde MD PROCEDURE/MINOR SURGICAL ORDERABLES Final Result from Last 3 Months or Most Recently Relevant to Health Maintenance Insurance [facility] [address] Care Teams Snow Plow Operator Relationship Specialty Start Date End Date Balbina Calderon MD [address] [place] [address] PCP - General Internal Medicine 01/02/20 Yair Vickers MD [address] [facility] [address] [place] [address] Consulting Physician Cardiovascular Disease - Cardiology 08/28/21 Norma Durbin MD [address] [place] [address] Consulting Physician Gastroenterology 04/22/22 Dom Hilliard MD [address] [place] [address] Consulting Physician Gastroenterology 05/18/23
--- OUTSIDE RECORDS SUMMARY | 2024-02-06 18:54 | XMS_ITS | Encounter Summary ---
Author Organization [employer] Care Team Providers Care Bass String Winder Name Role Phone Balbina Calderon MD Primary Care Provider Yair Vickers MD Unavailable [phone] Encounter Details Date Type Department Care Team (Latest Contact Info) Description 08/28/2021 Travel Social History Tobacco Use Types Packs/Day Years Used Date Smoking Tobacco: Never Smokeless Tobacco: Never Alcohol Use Standard Drinks/Week Comments Not Currently 0 (1 standard drink = 0.6 oz pur e alcohol) Sexually Active Control Partners Comments Not Currently Comments No Sex and Gender Information Value Date Recorded Sex Assigned at Not on file Legal Sex Female 1:37 PM BAKING ASSISTANT Gender Identity Not on file Sexual Orientation [...] on filedocumented in this encounter Care Teams Bass String Winder Relationship Specialty Start Date End Date Balbina Calderon MD [address] [place] [address] PCP - General Internal Medicine 01/02/20 Yair Vickers MD [address] [facility] [address] [place] [address] Consulting Physician Cardiovascular Disease - Cardiology 08/28/21 documented as of this encounter
--- OUTSIDE RECORDS SUMMARY | 2024-02-06 18:54 | XMS_ITS | Encounter Summary ---
Author Organization [facility] Address [address] [place] [address] Phone Care Team Providers Care Dry Mixer Name Role Phone Balbina Calderon MD Primary Care Provider Yair Vickers MD Unavailable [phone] Norma Durbin MD Unavailable [phone] Dom Hilliard MD Unavailable [phone] Encounter Details Date Type Department Care Team (Late st Contact Info) Description 09/20/2023 Telephone [facility] - Gastroenterology [facility] [address] [place] [address] Stephania Vieira APRN, RESERVATIONS SALES SUPERVISOR [address] [place] [address] Social History Tobacco Use Types Packs/Day Years Used Date Smoking Tobacco: Never Smokeless Tobacco: Never Alcohol Use Standard Drinks/Week Comments Not Currently 0 (1 standard drink = 0.6 oz pur e alcohol) Sexually Active Control Partners Comments Not Currently Comments No Sex and Gender Information Value Date Recorded Sex Assigned at Not on file Legal Sex Female 1:37 PM MANAGER DAIRY Gender Identity Not on file Sexual Orientation Not on file documented as of this encounter Miscellaneous Notes * Telephone Encounter - Marcial Torre, DUMPING MACHINE OPERATOR - 09/22/2023 8:40 AM CDT Called and LMOM for patient to call office if she starts having any issues, and she can defer the colonoscopy at this time. Patient please call office if any questions or concerns, or issues arise. * Telephone Encounter - Stephania Vieira APRN, CNP - 09/21/2023 7:08 AM CDT If patient wants to defer colonoscopy at this time that is okay. * Telephone Encounter - Marcial Torre CMA - 09/20/2023 4:14 PM CDT Called patient to scheduled colonoscopy from order placed. Patient returned my call, wants to know if she needs to have it done so soon, she states not pain, no blood in stools, does have constipation on and off, then to a regular bowel. She states this is something she has dealt with for 20 plus years. Patient also stated if she starts having any issues she will call the office. documented in this encounter Plan of Treatment Not on file documented as of this encounter Visit Diagnoses Not on filedocumented in this encounter Care Teams Dry Mixer Relationship Specialty Start Date End Date Balbina Calderon MD [facility] [place] [address] PCP - General Internal Medicine 01/02/20 Yair Vickers MD [address] [place] [address] [place] [address] Consulting Physician Cardiovascular Disease - Cardiology 08/28/21 Norma Durbin MD [address] [place] [address] Consulting Physician Gastroenterology 04/22/22 Dom Hilliard MD [address] [place] [address] Consulting Physician Gastroenterology 05/18/23 documented as of this encounter
--- OUTSIDE RECORDS SUMMARY | 2024-02-06 18:54 | XMS_ITS | Encounter Summary ---
Author Organization [facility] Address [address] [place] [address] Phone Care Team Providers Care Rotary Drier Operator Name Role Phone Balbina Calderon MD Primary Care Provider Yair Vickers MD Unavailable [phone] Norma Durbin MD Unavailable [phone] Reason for Visit * Auth/Cert (Routine) Specialty Diagnoses / Procedures Referred By Contmason t Referred To Contact Diagnoses ULCERATIVE COLITIS Procedures COLONOSCOPY Norma Durbin MD [address] [place] [address] Phone: tel: fax: Referral ID Status Reason Start Date Expiration Date Visits Re quested Visits Authorized [id number] 1 1 Encounter Details Date Type Department Care Team (Late st Contact Info) Description 07/12/2022 11:00 AM CDT Ancillary Procedure [facility] Main [address] [place] [address] Norma Durbin MD [address] [place] [address] Social History Tobacco Use Types Packs/Day Years Used Date Smoking Tobacco: Never Smokeless Tobacco: Never Alcohol Use Standard Drinks/Week Comments Not Currently 0 (1 standard drink = 0.6 oz pur e alcohol) Sexually Active Control Partners Comments Not Currently Comments No Sex and Gender Information Value Date Recorded Sex Assigned at Not on file Legal Sex Female 1:37 PM DIRECTOR OF STRATEGIC SALES Gender Identity Not on file Sexual Orientation [...] Procedure Name Priority Date/Time Associated Diagnosis Comments GI IMAGING - COLONOSCOPY Routine 023 10:59 AM CDT documented in this encounter Results * GI IMAGING - COLONOSCOPY (07/12/2022 10:59 AM CDT) Norma Durbin MD IM DIAGNOSTIC ORDERABLES Final Result documented in this encounter Visit Diagnoses Not on filedocumented in this encounter Care Teams Rotary Drier Operator Relationship Specialty Start Date End Date Balbina Calderon MD [address] [place] [address] PCP - General Internal Medicine 01/02/20 Yair Vickers MD [address] [facility] [address] [place] [address] Consulting Physician Cardiovascular Disease - Cardiology 08/28/21 Norma Durbin MD [address] [place] [address] Consulting Physician Gastroenterology 04/22/22 documented as of this encounter
--- OUTSIDE RECORDS SUMMARY | 2024-02-06 18:54 | XMS_ITS | Encounter Summary ---
Author Organization [employer] Care Team Providers Care Returner Name Role Phone Balbina Calderon MD Primary Care Provider Yair Vickers MD Unavailable [phone] Norma Durbin MD Unavailable [phone] Encounter Details Date Type Department Care Team (Latest Contact Info) Description 05/08/2022 Travel Social History Tobacco Use Types Packs/Day Years Used Date Smoking Tobacco: Never Smokeless Tobacco: Never Alcohol Use Standard Drinks/Week Comments Not Currently 0 (1 standard drink = 0.6 oz pur e alcohol) Sexually Active Control Partners Comments Not Currently Comments No Sex and Gender Information Value Date Recorded Sex Assigned at Not on file Legal Sex Female 1:37 PM MANAGER TARGET Gender Identity Not on file Sexual Orientation [...] on filedocumented in this encounter Care Teams Returner Relationship Specialty Start Date End Date Balbina Calderon MD [address] [place] [address] PCP - General Internal Medicine 01/02/20 Yair Vickers MD 2 [facility] [address] [place] [address] Consulting Physician Cardiovascular Disease - Cardiology 08/28/21 Norma Durbin MD [address] [place] [address] Consulting Physician Gastroenterology 04/22/22 documented as of this encounter
== END 2024-02-03 14:14 | disposition home or self-care (01) ==
PROVIDERS: PCP Internal Medicine Infectious Disease; Visit Provider Psychiatry & Neurology Neurology
DX: R51.9 Headache, unspecified (principal)
CPT/HCPCS: 70450

== ENCOUNTER 2024-05-17 15:43 | Outpatient (CLI) | payer OTHER, SELFPAY ==
--- NOTE | ~2024-05-17 | MM_ITS ---
EXAMINATION: MM screening [facility] BI w melodie HISTORY: Screening TECHNIQUE: Craniocaudal and mediolateral oblique 3-D tomosynthesis images were obtained and synthetic 2-D images were generated. CAD analysis was submitted and interpreted. COMPARISON: 09/16/2022 and dating back to 09/13/2018 BREAST PARENCHYMAL COMPOSITION: The breasts are heterogeneously dense, which may obscure small masses . FINDINGS: Punctate calcifications are detected bilaterally, stable and benign in appearance. Stable parenchymal pattern without suspicious microcalcifications, architectural distortion, discrete masses or significant asymmetry. IMPRESSION: 1. No mammographic evidence of malignancy. 2. Recommend routine screening mammography in one year. BI-RADS Category 2: Benign finding(s). Reviewed, dictated and finalized at location A.
--- OUTSIDE RECORDS SUMMARY | 2024-05-17 16:20 | XMS_ITS | Referral Summary ---
Author Organization [facility] Address [address] [place] [address] Care Team Providers Care City Councilman Name Role Phone Balbina Calderon MD Primary Care Provider Allergies No known active allergies Medications albuterol HFA (PROVENTIL HFA,VENTOLIN HFA,PROAIR HFA) 90 mcg/actuation inhaler albuterol sulfate HFA 90 mcg/actuation aerosol inhaler 7 Active balsalazide (COLAZAL) 750 mg capsule Take 3 capsules (2,250 mg total) by mouth daily [address] (PROTONIX) 40 mg EC tablet Take 1 tablet (40 mg total) by mouth daily Active fluticasone propion-salmete roL (Advair Diskus) 250-50 mcg/dose diskus inhaler Inhale 1 puff 2 (two) times a day Rinse mouth with water after use. Do not swallow. Active norethindrone (MICRONOR) 0.35 mg tablet Take 1 tablet (0.35 mg total) by mouth daily 4 Active metoprolol tartrate (LOPRESSOR) 25 mg immediate release tablet Take 1 tablet (25 mg total) by mouth 2 (two) times a day 180 tablet 3 5 03/14/19 26 Active Active Problems No known active problems Social History Tobacco Use Types Packs/Day Years Used Date Smoking Tobacco: Never Smokeless Tobacco: Never Tobacco Cessation:Counseling Given: Not Answered Alcohol Use Standard Drinks/Week Comments Never 0 (1 standard drink = 0.6 oz pur e alcohol) AUDIT-C Answer Date Recorded Q1: How often do you have a drink containing alc ohol? Never 07/05/2019 Average Number of Drinks Not on file 020 Frequency of Binge Drinking Not on file 06/21 Personal Safety Answer Date Recorded Getting School Help Needed Not on file 02/13 Comments Unknown Sex and Gender Information Value Date Recorded Sex Assigned at Not on file Legal Sex Female 10:27 AM GROUND SCHOOL INSTRUCTOR Gender Identity Not on file Sexual Orientation Not on file Last Filed Vital Signs Vital Sign Reading Time Taken Comments Blood Pressure 159/92 06/16/2023 2:42 PM CDT Pulse 81 06/16/2023 2:42 PM CDT Temperature 36.5 C (97.7 F) 11/27/2020 3:13 PM CDT Respiratory Rate 18 06/16/2023 2:42 PM CDT Oxygen Saturation - - Inhaled Oxygen Concentration - - Weight 108 kg (238 lb) 06/16/2023 2:42 PM CDT Height 182.9 cm (6') 06/16/2023 2:42 PM CDT Body Mass Index 32.28 06/16/2023 2:42 PM CDT Plan of Treatment Not on file Insurance Care Teams City Councilman Relationship Specialty Start Date End Date Balbina Calderon MD [address] [place] [address] PCP - General Internal Medicine 01/01/19
--- OUTSIDE RECORDS SUMMARY | 2024-05-17 16:20 | XMS_ITS | Clinical Summary ---
Author Organization [facility] Address [address] [address] Phone Care Team Providers Care Channel Machine Operator Name Role Phone Balbina Calderon MD Primary Care Provider Yair Vickers MD Unavailable [phone] Norma Durbin MD Unavailable Allergies No known active allergies Medications pantoprazole [...] Lnp-s, Pf, 3 0 Mcg/0.3 Ml Dose (Localisto) 11/28/2020,11/21/2020,03/03/2020,2019 DTP Vaccine 06/18/1982, 9,1977,1977,1977 Influenza, Injectable, [...] on file Legal Sex Female 1:37 PM FOLDING RULES PRINTING MACHINE OPERATOR Gender Identity Not on file Sexual Orientation Not on file Last Filed Vital Signs Vital Sign Reading Time Taken Comments Blood Pressure 148/88 04/21/2023 4:01 PM FOLDING RULES PRINTING MACHINE OPERATOR Pulse 63 04/21/2023 4:01 PM FOLDING RULES PRINTING MACHINE OPERATOR Temperature 37 C (98.6 F) 04/21/2023 4:01 PM FOLDING RULES PRINTING MACHINE OPERATOR Respiratory Rate 14 04/21/2023 4:01 PM FOLDING RULES PRINTING MACHINE OPERATOR Oxygen Saturation 100% 04/21/2023 4:01 PM FOLDING RULES PRINTING MACHINE OPERATOR Inhaled Oxygen Concentration - - Weight 106.5 kg (234 lb 12.8 oz) 04/21/2023 4:01 PM FOLDING RULES PRINTING MACHINE OPERATOR Height 177.8 cm (5' 10 ) 04/21/2023 4:01 PM FOLDING RULES PRINTING MACHINE OPERATOR Body Mass Index 33.69 04/21/2023 4:01 PM FOLDING RULES PRINTING MACHINE OPERATOR Plan of Treatment Health Maintenance Due Date Last Done Comments Hepatitis C Virus (HCV) Screening 1977 Mammogram 1977 Hepatitis B Immunization (1 of 3 [...] Most Recently Relevant to Health Maintenance Insurance [facility] Care Teams Channel Machine Operator Relationship Specialty Start Date End Date Balbina Calderon MD [address] [place] [address] PCP - General Internal Medicine 01/02/20 Yair iVckers MD 2 [facility] [address] [place] [address] Consulting Physician Cardiovascular Disease - Cardiology 08/28/21 Norma Durbin MD [address] [place] [address] Consulting Physician Gastroenterology 04/22/22
--- OUTSIDE RECORDS SUMMARY | 2024-05-17 16:20 | XMS_ITS | Encounter Summary ---
Author Organization [facility] Address [address] [place] [address] Phone Care Team Providers Care Project Management It Specialist Name Role Phone Balbina Calderon MD Primary Care Provider Yair Vickers MD Unavailable Norma Durbin MD Unavailable [phone] Dom Hilliard MD Unavailable [phone] Reason for Visit * Reason Comments Medication Refill Encounter Details Date Type Department Care Team (Late st Contact Info) Description 09/14/2022 Refill [facility] - Gastroenterology [facility] [address] [place] [address] Norma Durbin MD [address] [place] [address] Medication Refill Social History Tobacco Use Types Packs/Day Years Used Date Smoking Tobacco: Never Smokeless Tobacco: Never Alcohol Use Standard Drinks/Week Comments Not Currently 0 (1 standard drink = 0.6 oz pur e alcohol) Sexually Active Control Partners Comments Not Currently Comments No Sex and Gender Information Value Date Recorded Sex Assigned at Not on file Legal Sex Female 1:37 PM HYDROMETEOROLOGY TEACHER Gender Identity Not on file Sexual Orientation [...] (HCC) documented in this encounter Care Teams Project Management It Specialist Relationship Specialty Start Date End Date Balbina Calderon MD [address] [place] [address] PCP - General Internal Medicine 01/02/20 Yair Vickers MD 2 [facility] [place] [address] [place] [address] Consulting Physician Cardiovascular Disease - Cardiology 08/28/21 Norma Durbin MD [address] [place] [address] Consulting Physician Gastroenterology 04/22/22 Dom Hilliard MD [address] [place] [address] Consulting Physician Gastroenterology 05/18/23 05/10/24 documented as of this encounter
--- OUTSIDE RECORDS SUMMARY | 2024-05-17 16:20 | XMS_ITS | Clinical Summary ---
Author Organization [facility] Address [address] [facility] [place] [address] Care Team Providers Care Repack Room Worker Name Role Phone Balbina Calderon MD Primary Care Provider Source Comments [facility],non-owned Affiliates and Associated Physician Practices is amultiple site organization consisting of ambulatory clinics and hospital sitesin [place], [place], [place] and [place]. This disclosure is being madepursuant to the Care Everywhere program and may not contain all information available regarding this patient. Last updated 17.[facility] Medications * Be aware that medications may [...] Comments Blood Pressure 142/88 04/28/2016 11:01 AM LEAD ENGINEER Pulse 102 04/28/2016 11:01 AM LEAD ENGINEER Temperature 36.9 C (98.5 F) 04/28/2016 11:01 AM LEAD ENGINEER Respiratory Rate 16 04/28/2016 11:01 AM LEAD ENGINEER Oxygen Saturation - - Inhaled Oxygen Concentration - - Weight 92.1 kg (203 lb) 04/28/2016 11:01 AM LEAD ENGINEER Height 175.3 cm (5' 9 ) 04/28/2016 11:01 AM LEAD ENGINEER Body Mass Index 29.98 04/28/2016 11:01 AM LEAD ENGINEER Plan of Treatment Health Maintenance Due Date Last Done Comments COLOGUARD (AGES 45-75) - COL ON CA SCREENING 1977 COLON MONITORING 1977 COLONOSCOPY - COLON CA SCREENING 1977 CT COLONOGRAPHY - COLON CA SCREENING 1977 Colorectal Cancer Screening 1977 FIT - COLON CA SCREENING 1977 FLEX SIG - COLON CA SCREENING 1977 LIPID TESTING 1977 MAMMOGRAM 1977 PAP SMEAR 1977 HIV SCREENING 1992 HEPATITIS C SCREENING 06/30/1995 DTAP/TDAP/TD VACCINES (1 - Tdap) 1996 HEPATITIS B VACCINE (1 of 3 - 19+ 3-dose series) 1996 PNEUMOCOCCAL VACCINE (1 of 2 - PCV) 1996 COVID-19 VACCINE (1 - 2023-2 5 season) 2023 INFLUENZA VACCINE (#1) 2023 DEPRESSION SCREENING 02/22/2024 ZOSTER VACCINE (1 of 2) 07/05/2027 HIB VACCINE Aged Out No longer eligi ble based on patient's age to complete this topic HPV VACCINE Aged Out No longer eligi ble based on patient's age to complete this topic MENINGOCOCCAL (Group B) VACC INE SHARED DECISION-MAKING Aged Out No longer eligibl e based on patient's age to complete this topic MENINGOCOCCAL GROUPS A/C/Y/W VACCINE Aged Out No longer eligible b ased on patient's age to complete this topic Care Teams Repack Room Worker Relationship Specialty Start Date End Date Balbina Calderon MD [address] [place], [place] [id number] PCP - General 10/14/15
--- OUTSIDE RECORDS SUMMARY | 2024-05-17 16:20 | XMS_ITS | Encounter Summary ---
Author Organization [facility] Address [address] [place] [address] Phone Care Team Providers Care Customer Sales Advisor Name Role Phone Balbina Calderon MD Primary Care Provider Yair Vickers MD Unavailable [phone] Norma Durbin MD Unavailable [phone] Dom Hilliard MD Unavailable Reason for Visit * Reason Comments Medication Refill Encounter Details Date Type Department Care Team (Late st Contact Info) Description 01/30/2021 Refill [facility] - [facility] [address] [place] [id number] Diana Gao Dedra, PAC [address] [place] [address] Medication Refill Social History Tobacco Use Types Packs/Day Years Used Date Smoking Tobacco: Never Smokeless Tobacco: Never Alcohol Use Standard Drinks/Week Comments Not Currently 0 (1 standard drink = 0.6 oz pur e alcohol) Sexually Active Control Partners Comments Not Currently Comments No Sex and Gender Information Value Date Recorded Sex Assigned at Not on file Legal Sex Female 1:37 PM BOIL OFF MACHINE OPERATOR CLOTH Gender Identity Not on file Sexual Orientation Not on file documented as of this encounter Miscellaneous Notes * Telephone Encounter - Kaleigh Cerna RN - 01/30/2021 12:50 PM BOIL OFF MACHINE OPERATOR CLOTH Pharmacy requesting refill of: Requested Prescriptions Pending Prescriptions Disp Refills ??? balsalazide (COLAZAL) 750 MG Capsule [Pharmacy Med Name: *BALSALAZIDE 750MG] 180 Capsule 0 Sig: TAKE THREE CAPSULES BY MOUTH ONCE DAILY Last fill: 12/02/2020 for 180 caps Patients last OV with GI: 10/14/2020 Next Office Visit with GI: None scheduled. Medication failed protocol, balsalazide order pended, please review. OFF MACHINE OPERATOR CLOTH documented in this encounter Plan of Treatment Not on file documented as of this encounter Visit Diagnoses Diagnosis 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) documented in this encounter Care Teams Customer Sales Advisor Relationship Specialty Start Date End Date Balbina Calderon MD [address] [place] [phone] PCP - General Internal Medicine 01/02/20 Yair Vickers MD 2 [facility] [address] [place] [address] Consulting Physician Cardiovascular Disease - Cardiology 08/28/21 Norma Durbin MD [address] [place] [address] Consulting Physician Gastroenterology 04/22/22 Dom Hilliard MD [address] [place] [address] Consulting Physician Gastroenterology 05/18/23 05/10/24 documented as of this encounter
--- OUTSIDE RECORDS SUMMARY | 2024-05-17 16:20 | XMS_ITS | Clinical Summary ---
Author Organization [facility] Address [address] [place] [address] Care Team Providers Care Synthetic Gem Press Operator Name Role Phone Balbina Calderon MD [...] Active Active Problems No known active problems Family History Medical History Relation Name Comments aortic valve replacement Mother pacemaker Mother Relation Name Status Comments Mother Social History Tobacco Use Types Packs/Day Years [...] on file Legal Sex Female 10:27 AM EXTRACTION SUPERVISOR Gender Identity Not on file Sexual Orientation Not on file Obstetrics History Last Filed Vital Signs Vital Sign Reading [...] 06/16/2023 2:42 PM CDT Plan of Treatment Health Maintenance Due Date Last Done Comments Breast Cancer Screening-Mammogram 1977 Cervical Cancer Screening 1977 Colon Cancer Screening-Colonoscopy 1977 Depression Screening 1977 Hepatitis C Screening 1977 Hepatitis B Screening 07/05/1995 Regular Well Visit/Exam 18-64 07/05/1995 Pneumococcal vaccine <65 (1 of 2 - PCV) 1996 Covid-19 Vaccine ( season) 2023 11/28/2020, 03/03/2020, 02/11/2020 Influenza Vaccine (#1) 2023 , 01/11/2020, 11/22/2017, Additional history exists DTaP/Tdap/Td Vaccine (8 - Td or Tdap) 01/22/2031 01/22/2021, 12/25/2009, 10/08/1992, Additional history exists HPV Vaccines Aged Out No longer eligi ble based on patient's age to complete this topic Insurance [facility] H[facility]/PPO Address: [address] [address] Care Teams Synthetic Gem Press Operator Relationship Specialty Start Date End Date Balbina Calderon MD [address] [place] [phone] PCP - General Internal Medicine 01/01/19
== END 2024-05-17 15:44 | disposition home or self-care (01) ==
LOC: ANHIMG 15:43
PROVIDERS: PCP Internal Medicine Infectious Disease; Visit Provider Obstetrics & Gynecology
DX: Z12.31 Encounter for screening mammogram for malignant neoplasm of breast (principal)
CPT/HCPCS: 77063; 77067

== ENCOUNTER 2024-08-07 08:45 | Outpatient (CLI) | payer OTHER, SELFPAY ==
--- OUTSIDE RECORDS SUMMARY | 2024-08-07 09:26 | XMS_ITS | Clinical Summary ---
Author Organization [facility] Address [address] [place] [address] Care Team Providers Care Jail Guard Name Role Phone Balbina Calderon MD Primary Care Provider Source Comments [facility],non-owned Affiliates and Associated Physician Practices is amultiple site organization consisting of ambulatory clinics and hospital sitesin [place], [place], [place] and [place]. This disclosure is being madepursuant to the Care Everywhere program and may not contain all information available regarding this patient. Last updated 17.[facility] Medications * Be aware that medications may not be up to date on this document. Alwaysverify current medications with the patient. norethin-eth estradiol-FE (LOESTRIN FE 03/12; JUNEL FE 03/12; MICROGESTIN FE 03/12) 1-20 MG-MCG tablet Take 1 tablet by mouth DAILY. 7 Active meloxicam (MOBIC) 15 MG tablet Take 15 mg by mouth. 90 tablet 1 7 Active beclomethasone dipropionate (QVAR) 80 MCG/ACT inhaler Inhale 1 puff by mouth BID. 7 Active albuterol HFA (PROAIR HFA) 108 (90 BASE) MCG/ACT inhaler Inhale 2 puffs by mouth q6h PRN (Wheezing). 7 Active Acetaminophen (TYLENOL) 325 MG CAPS Take 2 tablets by mouth. 7 Active balsalazide (COLAZAL) 750 MG capsule Take 750 mg by mouth TID. 7 Active Active Problems Problem Noted Date Diagnosed [...] drink = 0.6 oz pur e alcohol) Comments Unknown Sex and Gender Information Value Date Recorded Sex Assigned at Not on file Legal Sex Female 5:37 PM PRIMARY OPERATOR Gender Identity Not on file Sexual Orientation Not on file Last Filed Vital Signs Vital Sign Reading Time Taken Comments Blood Pressure 142/88 04/28/2016 11:01 AM PRIMARY OPERATOR Pulse 102 04/28/2016 11:01 AM PRIMARY OPERATOR Temperature 36.9 C (98.5 F) 04/28/2016 11:01 AM PRIMARY OPERATOR Respiratory Rate 16 04/28/2016 11:01 AM PRIMARY OPERATOR Oxygen Saturation - - Inhaled Oxygen Concentration - - Weight 92.1 kg (203 lb) 04/28/2016 11:01 AM PRIMARY OPERATOR Height 175.3 cm (5' 9) 04/28/2016 11:01 AM PRIMARY OPERATOR Body Mass Index 29.98 04/28/2016 11:01 AM PRIMARY OPERATOR Plan of Treatment Upcoming Encounters Date Type Department Care Team (Late st Contact Info) Description 02/07/2025 3:00 PM PRIMARY OPERATOR Office Visit [facility] - GI [address] [facility] [place] [address] Kim Reno MD [address] [place] [address] Health Maintenance Due Date Last Done Comments COLOGUARD (AGES 45-75) - COL ON CA SCREENING 1977 COLON MONITORING 1977 COLONOSCOPY - COLON CA SCREENING 1977 CT COLONOGRAPHY - COLON CA SCREENING 1977 Colorectal Cancer Screening 1977 FIT - COLON CA SCREENING 1977 FLEX SIG - COLON CA SCREENING 1977 LIPID TESTING 1977 MAMMOGRAM 1977 HIV SCREENING 1992 HEPATITIS C SCREENING 06/30/1995 DTAP/TDAP/TD VACCINES (1 - Tdap) 1996 HEPATITIS B VACCINE (1 of 3 - 19+ 3-dose series) 1996 PNEUMOCOCCAL VACCINE (1 of 2 - PCV) 1996 PAP SMEAR 1998 COVID-19 VACCINE (1 - 2023-2 5 season) 2023 DEPRESSION SCREENING 02/22/2024 INFLUENZA VACCINE (Season Ended) 2024 ZOSTER VACCINE (1 of 2) 07/05/2027 HIB [...] patient's age to complete this topic Insurance Care Teams Jail Guard Relationship Specialty [place] [address] [place] [id number] [facility] - General 10/14/15
--- OUTSIDE RECORDS SUMMARY | 2024-08-07 09:26 | XMS_ITS | Clinical Summary ---
Author Organization [facility] Building A Address [address] [place] [address] Care Team Providers Care Jr. Java Developer Name Role Phone Balbina Calderon MD [...] water after use. Do not swallow. Active metoprolol tartrate (LOPRESSOR) 25 mg immediate release tablet Take 1 tablet (25 mg total) by mouth 2 (two) times a day 180 tablet 3 5 03/14/19 26 Active progesterone (PROMETRIUM) 200 mg capsule Take 1 capsule (200 mg total) by mouth daily 5 Active Active Problems No known active problems Encounters Date Type Department Care Team Description 06/21/2024 2:30 PM CDT Office Visit [place] [facility] at [address] [place] [address] Zi iVckers MD Essential hypertension (Primary Dx) from Last 3 Months Family History Medical History Relation Name Comments [...] of Binge Drinking Not on file 06/21 Comments Unknown Sex and Gender Information Value Date Recorded Sex Assigned at Not on file Legal 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 Female 10:27 AM 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 Gender Identity Not on file Sexual Orientation Not on file Obstetrics History Last Filed Vital Signs Vital Sign Reading Time Taken Comments Blood Pressure 116/76 06/21/2024 2:41 PM CDT Pulse 66 06/21/2024 2:41 PM CDT Temperature 36.5 C (97.7 F) 11/27/2020 3:13 PM CDT Respiratory Rate 18 06/16/2023 2:42 PM CDT Oxygen Saturation - - Inhaled Oxygen Concentration - - Weight 102.5 kg (226 lb) 06/21/2024 2:41 PM CDT Height 182.9 cm (6') 06/21/2024 2:41 PM CDT Body Mass Index 30.65 06/21/2024 2:41 PM CDT Plan of Treatment Health Maintenance Due Date Last Done Comments Breast Cancer Screening-Mammogram 1977 Cervical Cancer Screening 1977 Colon Cancer Screening-Colonoscopy 1977 Depression Screening 1977 Hepatitis C Screening 1977 Hepatitis B Screening 07/05/1995 Regular Well Visit/Exam 18-64 07/05/1995 Pneumococcal vaccine <65 (1 of 2 - PCV) 1996 Covid-19 Vaccine (2023-2 5 season) 2023 11/28/2020, 03/03/2020, 02/11/2020 Influenza Vaccine (Season Ended) 2024 12/26/2020, 01/11/2020, 11/22/2017, Additional history exists DTaP/Tdap/Td Vaccine (8 - Td or Tdap) 01/22/2031 01/22/2021, 12/25/2009, 10/08/1992, Additional history exists Procedures Procedure Name Priority Date/Time Associated Diagnosis Comments ECG 12-LEAD Routine 06/21/2024 2:43 PM CDT Essential hypertension from Last 3 Months Results * ECG 12 lead (06/21/2024 2:43 PM CDT) us Zi Vickers MD ECG ORDERABLES Final Result from Last 3 Months Insurance Care Teams Jr. Java Developer Relationship Specialty Start Date End Date Balbina Calderon MD [address] [place] [id number] PCP - General Internal Medicine 01/01/19
--- OUTSIDE RECORDS SUMMARY | 2024-08-07 09:26 | XMS_ITS | Referral Summary ---
Author Organization [facility] Building A Address [address] [place] [address] Care Team Providers Care Electrical And Instrumentation Mechanic Name Role Phone Balbina Calderon MD Primary Care Provider Encounters Date Type Department Care Team Description 06/21/2024 2:30 PM CDT Office Visit [place] [facility] at [address] [place] [address] Zi Vickers MD Essential hypertension (Primary Dx) from Last 3 Months Allergies No known active allergies Medications albuterol [...] on file Legal Sex Female 10:27 AM SENIOR MEDIA DIRECTOR Gender Identity Not on file Sexual Orientation [...] 06/21/2024 2:41 PM CDT Plan of Treatment Not on file Procedures Procedure Name Priority Date/Time Associated Diagnosis Comments ECG 12-LEAD Routine 06/21/2024 2:43 PM CDT Essential hypertension from Last 3 Months Results * ECG 12 lead (06/21/2024 2:43 PM CDT) Zi Vickers MD ECG ORDERABLES Final Result from Last [address] [place] [address] [facility] HMO/PPO Address: [address] [address] Care Teams Electrical And Instrumentation Mechanic Relationship Specialty Start Date End Date Balbina Calderon MD [address] [place] [phone] PCP - General Internal Medicine 01/01/19
[2024-08-07 09:33] LABS: Basophils Absolute Auto 0.1 K/mm3 (0.0-0.1); Basophils Percent Auto 0.7 % (0.2-1.2); Eosinophils Absolute Auto 0.2 K/mm3 (0-0.3); Eosinophils Percent Auto 1.9 % (0-4.4); Hematocrit 41.1 % (37.0-47.0); Hemoglobin 12.7 g/dL (12.0-15.0); Immature Granulocyte Absolute 0.03 K/mm3 (0.00-0.031); Immature Granulocyte Percent A 0.3 % (0-0.5); Lymphocytes Absolute Auto 2.69 K/mm3 (0.9-3.2); Mean Corpuscular HGB Conc 30.9 g/dl (32-36); Mean Corpuscular Volume 90.5 fl (80-100); Mean Platelet Volume 9.6 fl (7.4-10.4); Monocytes Absolute Auto 0.8 K/mm3 (0.1-0.6); Monocytes Percent Auto 7.5 % (2.6-8.5); Neutrophils Absolute Auto 6.9 K/mm3 (1.3-6.7); Neutrophils Percent Auto 64.6 % (45.5-73.1); Platelet Count Result 291 k/mm3 (150-375); Red Blood Count 4.54 M/mm3 (4.2-5.4); Red Cell Distribution Width 14.7 % (11.5-14.5); White Blood Count 10.7 K/mm3 (4.5-10.0)
[2024-08-07 09:40] LABS: Add Urine Microscopic? YES; Appearance Urine Clear (Clear); Bacteria Urine None Seen /hpf; Bilirubin Urine Negative (Negative); Blood Urine Negative (Negative); Color Urine Yellow (Yellow); Glucose Urine UA Negative (Negative); Ketones Urine Negative (Negative); Leukocyte Esterase Ur Trace LEU/UL (Negative); Nitrate Urine Negative (Negative); Non Pathogenic Casts 0-2; Protein Urine Negative (Negative); RBC Urine 0-2 /hpf (0-2); Specific Grav Ur 1.005 (1.001-1.035); Squamous Epithelial Cell Urine None Seen /hpf (Few); Urobilinogen Urine 0.2 mg/dL (<2.0); WBC Urine 0-5 /hpf (0-3)
[2024-08-07 10:01] LABS: Cholesterol 221 mg/dL (0-200); HDL Direct 50 mg/dL; Triglycerides 70 mg/dL (<150)
[2024-08-07 10:02] LABS: Alanine Aminotransferase 13 U/L (6-35); Alkaline Phosphatase 94 U/L (38-126); Anion Gap 7 mmol/L (4-12); Aspartate Amino Transferase 26 U/L (14-36); Bilirubin,Total 0.8 mg/dL (0.2-1.3); Blood Urea Nitrogen 8 mg/dL (7-17); Calcium 9.1 mg/dL (8.4-10.2); Carbon Dioxide 25 mmol/L (22-30); Chloride 105 mmol/L (98-107); Estimated Glomerular Filt Rate > 60; Glucose 84 mg/dL (65-110); Potassium 3.8 mmol/L (3.4-5.0); Sodium 137 mmol/L (137-145); Total Protein 7.8 g/dL (6.3-8.2)
[2024-08-07 10:05] LABS: Hemoglobin A1C 5.5 % (<5.7)
[2024-08-07 10:11] LABS: LDL Cholesterol Direct 134 mg/dL
[2024-08-07 10:46] LABS: Creatinine Urine 32.5 mg/dL
[2024-08-07 11:35] LABS: MALB Creatinine Ratio < 18.5 mg/g (0-30); Microalbumin Urine Random < 6.0 mg/L (0-16.7)
== END 2024-08-07 08:46 | disposition home or self-care (01) ==
PROVIDERS: PCP Internal Medicine Infectious Disease; Referring Provider Internal Medicine Infectious Disease
DX: E78.9 Disorder of lipoprotein metabolism, unspecified (principal); I10 Essential (primary) hypertension; K51.20 Ulcerative (chronic) proctitis without complications; Z51.81 Encounter for therapeutic drug level monitoring; Z68.31 Body mass index [BMI] 31.0-31.9, adult
CPT/HCPCS: 36415; 80053; 80061; 81001; 82043; 83036; 85025

== ENCOUNTER 2024-12-01 00:12 | Emergency (ER) | payer OTHER, SELFPAY ==
[2024-12-01] VITALS (30 sets, daily range): BP systolic 116–159; BP diastolic 62–83; PULSE 80–100; RESP 16–22; TEMP 36.4–36.7; O2SAT 97–100
--- NOTE | ~2024-12-01 | CT_ITS ---
CT abdomen pelvis wo/w con Clinical History: abdominal pain, flank pain . Comparison: CT abdomen pelvis 06/13/2018 Technique: Axial images lung bases to symphysis pubis 100 mL IV contrast Coronal, sagittal reformats CT images acquired with automatic exposure control for dose reduction DLP: 2034 mGy-cm Findings: Lung bases: Clear. Visualized heart and pericardium: Unremarkable. Liver: Unremarkable. Gallbladder: Unremarkable. Spleen: Unremarkable. Pancreas: Unremarkable. Adrenal glands: Unremarkable. Kidneys: Right kidney- No hydronephrosis. No renal stones. Left kidney- No hydronephrosis. No renal stones. Distal esophagus/stomach: Unremarkable. Small bowel loops: Normal caliber and wall thickness. Colon: Apparent wall thickening descending segment but under distended. Appendectomy. Nodes: No enlarged nodes. Peritoneum: No ascites. No free air. Urinary bladder: Unremarkable. Uterus: Unremarkable. Adnexa: No masses. Bones: No acute bony abnormality. Soft tissues: Small umbilical hernia with fat. Aorta: No aneurysm or dissection. IVC: Unremarkable. Main portal vein/SMV/splenic vein: Patent. IMPRESSION: 1. No acute findings. Reviewed, dictated and finalized at location R. IMPRESSION: 1. No acute findings.
--- OUTSIDE RECORDS SUMMARY | 2024-12-01 00:14 | XMS_ITS | Encounter Summary ---
Author Organization [facility] Address [address] [place] [address] Phone Care Team Providers Care Salesperson Wigs Name Role Phone Balbina Calderon MD Primary Care Provider Yair Vickers MD Unavailable Norma Durbin MD Unavailable [phone] Dom Hilliard MD Unavailable Reason for Visit * Reason Comments Medication Refill Encounter Details Date Type Department Care Team (Late st Contact Info) Description 01/30/2021 Refill [facility] - Gastroenterology [facility] [address] [place] [phone] Diana Gao Dedra, PAC [address] [place] [address] Medication Refill Social History Tobacco Use Types Packs/Day Years Used Date Smoking Tobacco: Never Smokeless Tobacco: Never Alcohol Use Standard Drinks/Week Comments Not Currently 0 (1 standard drink = 0.6 oz pur e alcohol) Sexually Active Control Partners Comments Not Currently Comments No Sex and Gender Information Value Date Recorded Sex Assigned at Not on file Legal Sex Female 1:37 PM GARMENT PRESSER Gender Identity Not on file Sexual Orientation Not on file documented as of this encounter Miscellaneous Notes * Telephone Encounter - Kaleigh Cerna RN - 01/30/2021 12:50 PM GARMENT PRESSER Pharmacy requesting refill of: Requested Prescriptions Pending Prescriptions Disp Refills ??? balsalazide (COLAZAL) 750 MG Capsule [Pharmacy Med Name: *BALSALAZIDE 750MG] 180 Capsule 0 Sig: TAKE THREE CAPSULES BY MOUTH ONCE DAILY Last fill: 12/02/2020 for 180 caps Patients last OV with GI: 10/14/2020 Next Office Visit with GI: None scheduled. Medication failed protocol, balsalazide order pended, please review. 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
--- OUTSIDE RECORDS SUMMARY | 2024-12-01 00:15 | XMS_ITS | Clinical Summary ---
Author Organization [facility] Address [address] [facility] [place] [address] Care Team Providers Care Shingle Shearing Machine Operator Name Role Phone Balbina Calderon MD Primary Care Provider Source Comments [facility],non-owned Affiliates and Associated Physician Practices is amultiple site organization consisting of ambulatory clinics and hospital sitesin [place], [place], [place] and [place]. This disclosure is being madepursuant to the Care Everywhere program and may not contain all information available regarding this patient. Last updated 17.[facility] Medications * Be aware that medications may [...] on file Legal Sex Female 5:37 PM SECURITIES TELLER Gender Identity Not on file Sexual Orientation Not on file Last Filed Vital Signs Vital Sign Reading Time Taken Comments Blood Pressure 142/88 04/28/2016 11:01 AM SECURITIES TELLER Pulse 102 04/28/2016 11:01 AM SECURITIES TELLER Temperature 36.9 C (98.5 F) 04/28/2016 11:01 AM SECURITIES TELLER Respiratory Rate 16 04/28/2016 11:01 AM SECURITIES TELLER Oxygen Saturation - - Inhaled Oxygen Concentration - - Weight 92.1 kg (203 lb) 04/28/2016 11:01 AM SECURITIES TELLER Height 175.3 cm (5' 9) 04/28/2016 11:01 AM SECURITIES TELLER Body Mass Index 29.98 04/28/2016 11:01 AM SECURITIES TELLER Plan of Treatment Upcoming Encounters Date Type Department Care Team (Late st Contact Info) Description 02/07/2025 3:00 PM SECURITIES TELLER Office Visit [facility] - GI [address] [facility] [place] [address] Kim Reno MD [address] [place] [address] Health Maintenance Due Date Last Done Comments [...] 2 - PCV) 1996 PAP SMEAR 1998 DEPRESSION SCREENING 02/22/2024 COVID-19 VACCINE (1 - 2023-2 5 season) 2024 INFLUENZA VACCINE (#1) 2024 ZOSTER VACCINE (1 of 2) 07/05/2027 [...] to complete this topic Insurance Care Teams Shingle Shearing Machine Operator Relationship Specialty [place] [address] [place] [id number] [facility] - General 10/14/15
--- OUTSIDE RECORDS SUMMARY | 2024-12-01 00:15 | XMS_ITS | Clinical Summary ---
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 2019 Polyp of colon 01/28/2020 Gastroesophageal reflux disease 01/28/2020 Encounters Date Type Department Care Team Description 09/05/2024 Telephone [facility] - Gastroenterology - [place] [address] [place] [address] Stephania Vieira APRN, WEB PRODUCTION DESIGNER Appointment; Referral from Last 3 Months Immunizations Immunization Administration Dates Next Due Covid-19, Mrna, Lnp-s, Pf, 3 0 Mcg/0.3 Ml Dose (TDX) 11/28/2020,11/21/2020,03/03/2020,2019 DTP Vaccine 06/18/1982, 9,1977,1977,1977 Influenza, Injectable, [...] on file Legal Sex Female 1:37 PM FISHER TROT LINE Gender Identity Not on file Sexual Orientation Not on file Last Filed Vital Signs Vital Sign Reading Time Taken Comments Blood Pressure 148/88 04/21/2023 4:01 PM FISHER TROT LINE Pulse 63 04/21/2023 4:01 PM FISHER TROT LINE Temperature 37 C (98.6 F) 04/21/2023 4:01 PM FISHER TROT LINE Respiratory Rate 14 04/21/2023 4:01 PM FISHER TROT LINE Oxygen Saturation 100% 04/21/2023 4:01 PM FISHER TROT LINE Inhaled Oxygen Concentration - - Weight 106.5 kg (234 lb 12.8 oz) 04/21/2023 4:01 PM FISHER TROT LINE Height 177.8 cm (5' 10) 04/21/2023 4:01 PM FISHER TROT LINE Body Mass Index 33.69 04/21/2023 4:01 PM FISHER TROT LINE Plan of Treatment Health Maintenance Due Date Last Done Comments Hepatitis C Virus (HCV) Screening 1977 Mammogram 1977 Hepatitis B Immunization (1 of 3 - 19+ 3-dose series) 1996 Pap Smear 1998 Cervical Cancer Screening (CCS) 07/05/2007 HPV/Cotest 07/05/2007 Discussion re Starting/Frequency of Mammograms 2017 Cologuard 2022 Immunochemical Fecal Occult Blood 2022 Influenza Immunization (#1) 10/22/202411/21, 12/10/2022, 11/21/2021, Additional history exists DTaP/Tdap/Td Immunization (8 - Td or Tdap) 01/22/2031 01/22/2021, 12/25/2009, 10/08/1992, Additional history exists Colonoscopy 07/12/2032 07/12/2022, 02/21, 09/11/2012 Colorectal Cancer Screening 07/12/2032 Respiratory Syncytial Virus (RSV) Immunization (Adult) (1 - 1-dose 75+ series) 2052 SARS-COV-2 Immunization Completed 11/04/19 24, 10/05/2021, 11/28/2020, Additional history exists Human Papillomavirus (HPV) Immunization Aged Out No longer eligible based on patient's age to complete this topic Meningococcal Immunization (ACWY) Aged Out No longer [...] Most Recently Relevant to Health Maintenance Insurance [facility] Care Teams Wind Site Manager Relationship Specialty [place] [address] [place] [id number] PCP - General Internal Medicine 01/02/20 Yair Vickers MD 2 [facility] [address] [address] Consulting Physician Cardiovascular Disease - Cardiology 08/28/21 Norma Durbin MD [address] [place] [address] Consulting Physician Gastroenterology 04/22/22
--- OUTSIDE RECORDS SUMMARY | 2024-12-01 00:15 | XMS_ITS | Clinical Summary ---
Author Organization [facility] A Address [address] [place] [address] Care Team Providers Care Director Of Primary Care Name Role Phone Balbina Calderon MD Primary [...] file Legal Sex Female 10:[address] OFFICE ASSISTANT Gender Identity Not on file Sexual [...] of 2 - PCV) 1996 Covid-19 Vaccine (2024-2 6 season) 2024 11/28/2020, 03/03/2020, 02/11/2020 Influenza Vaccine (#1) 2024 , 01/11/2020, 11/22/2017, Additional history exists DTaP/Tdap/Td Vaccine (8 - Td or Tdap) 01/22/2031 01/22/2021, 12/25/2009, 10/08/1992, Additional history [place] [address] [address] [place] [address] [facility] H[facility]/PPO Address: [address] [address] Care Teams Director Of Primary Care Relationship Specialty Start Date End Date Balbina Calderon MD [address] [place] [address] PCP - General Internal Medicine 01/01/19
--- OUTSIDE RECORDS SUMMARY | 2024-12-01 00:15 | XMS_ITS | Data Portability ---
[facility] Address [address] [place] [address] Care Team Providers Care Delivery And Installation Subcontractor Name Role Phone CALVIN DIAZ [employer] BALBINA MATHEW Internal Medicine Assessment No assessment recorded. Plan of Treatment Reminders Order Date Submit Date Provider Last Modified By Organization Details Last Modified Time Details Appointments None recorded. Lab CBC 2024 025 [facility] (Admitting), [facility] [address], [address], 5 12:19:37 lipid panel, serum 2024 025 [facility] (Admitting), [address], [address], 5 12:16:21 albumin/cre atinine, ratio, urine 2024 025 [facility] (Admitting), [address] [facility] [address] [place] [address], [address], 5 12:16:22 BMP, serum or plasma 2024 025 [facility] (Admitting), [address], [address], 5 12:19:37 glycohemogl obin, total, blood 2024 025 [facility] (Admitting), [address], [place], [address], 5 12:16:22 lipid panel, serum 2023 024 [facility] (Admitting), [facility] [address], [place], [address], 4 12:17:34 CBC w/ auto diff 2023 024 [facility] (Admitting), [address] [facility] [address], [place], [address], 4 17:46:10 CMP, serum or plasma 2023 024 [facility] (Admitting), [facility] [address], [place], [address], 4 13:07:52 lipid panel, serum 2023 024 [facility] (Admitting), [address] [facility] [address], [place], [address], 4 13:07:52 HbA1c (hemoglobin A1c), blood 2023 024 [facility] (Admitting), [address] [facility] [address], [place], [address], 4 13:07:52 TSH, ultra-sensi tive, serum 2023 024 [facility] (Admitting), [facility] [address], [place], [address], 4 13:07:53 Referral nutritionis t/dietitian referral - Hyperlipide kwame 2023 024 [facility], [facility] RT [facility], [place], [address], 4 17:13:17 Procedures None recorded. Surgeries None recorded. Imaging MAMMO, screening, digital, bilateral 2023 024 [facility], [address] [facility] [address], [place], [address], 5 13:30:07 XR, hip, unilateral, 2 or 3 view - Pain 2023 024 [facility] ([facility]), [address] [place], [address], 4 16:45:27 Medication Orders dextrometho rphan-guaif enesin 10 mg-100 mg/5 mL oral syrup 2023 024 [facility], [address], [place], [id number], 5 16:01:41 Patient TargetsNo targets recorded. Patient Instructions Encounter Date Encounter Id Patient Instructions Last Modified By Organization Details Last Modified Time 09/09/2022 [id number] A healthy lifestyle: care instructions oajao Not available 09/09/2022 16:40:16 body mass index: care instructions oajao Not available 09/09/2022 16:40:11 learning about healthy weight oajao Not available 09/09/2022 16:40:11 COVID booster in 6 months Follow up in 6 months [facility] (Scheduled) oajao Not available 09/09/2022 16:41:09 04/28/2023 [id number] learning about high blood pressure oajao Not available 04/28/2023 16:54:35 body mass index: care instructions oajao Not available 04/28/2023 17:00:13 learning about healthy weight oajao Not available 04/28/2023 17:00:13 Xray COVID vaccine Follow up in 2 weeks Labs oajao Not available 04/28/2023 18:06:45 06/02/2023 [id number] mammogram: about this test oajao Not available 06/02/2023 16:39:11 high blood pressure: care instructions oajao Not available 06/02/2023 16:36:31 learning about high blood pressure oajao Not available 06/02/2023 16:36:31 [facility] (Scheduled) MMG in 3 months Labs in July, Follow up in 6 months oajao Not available 06/02/2023 16:50:29 12/23/2023 [id number] MMG as previousl y ordered Follow up in 6 months oajao Not available 12/23/2023 15:52:49 08/03/2024 [id number] A healthy lifestyle: care instructions oajao Not available 08/03/2024 16:08:26 body mass index: care instructions oajao Not available 08/03/2024 16:08:26 learning about healthy weight oajao Not available 08/03/2024 16:08:26 BP check in 1-2 weeks Labs Follow up in 6 months and PRN oajao Not available 08/03/2024 16:26:22 Reason for Referral [facility] Integration/dietitian Refer ral for Disorder of lipid metabolism Hyperlipidemia Referring Physician: Balbina Mathew, Internal Medicine, Encounter Date: 06/02/2023 Results Created Date Observation Date Name Description Value Unit Range Abnormal Flag Note LastModifiedBy Organization Detail LastModifiedTime 08/08/19 25 08/07/2024 UR MICRO ALBUM IN/CR EATIN INE RATIO RANDO M microalbumin [mass/volume ] in urine 18.4 Not Available Not Available 0 09/27/2024 13:36:39 08/08/19 25 08/07/2024 Lipid 1995 panel - Serum or Plasm a cholesterol [mass/volume ] in serum or plasma 221 Not Available Not Available 13:36:39 08/08/19 25 08/07/2024 Lipid 1995 panel - Serum or Plasm a cholesterol in HDL [mass/volume ] in serum or plasma 50 Not Available Not Available 13:36:39 08/08/19 25 08/07/2024 Lipid 1995 panel - Serum or Plasm a cholesterol in LDL [mass/volume ] in serum or plasma 134 Not Available Not Available 13:36:39 09/18/19 23 09/16/2022 MAMMO , scree caty, bilat eral No observ ation record ed. [address], [place], [address], 04/28/2023 16:39:07 05/06/19 24 05/06/2023 XR, hip, unila teral , 2 or 3 view No observ ation record ed. [address] [facility], [place], [address], 06/02/2023 16:33:27 02/03/20 24 02/03/2024 CT, brain , w/o contr ast No observ ation record ed. [address] [address], [place], [address], 08/03/2024 16:09:41 05/19/19 25 05/17/2024 MAMMO , scree caty, digit al, bilat eral No observ ation record ed. [address] [facility], [place], [address], 08/03/2024 16:09:41 Result Notes None recorded. Problems Name Problem SNOMED Code Status Onset Date Resolution Date Notes Provider Name and Address Organization Details Recorded Time Asthma 739811414 Active Balbina Mathew MD Attn: Slvaa meng,[address] [facility], [place], [address], [facility] 6 13:19:47 Ulcerative colitis 64714445 Active Balbina Mathew MD Attn: Slava meng,[address] [facility], [place], [address], [place] [facility] 6 20:40:35 Dizziness and giddiness 085070355 Active Balbina Mathew MD Attn: Slava meng,[address] [facility], [place], [address], [place] [facility] 13:19:47 Impacted cerumen 40907909 Completed 10/20/2018 MAURICIO WYATT Attn: Slava meng,[address] [facility], [place], [address], [place] [facility] 9 11:58:52 Otitis media 67759993 Completed 10/20/2018 MAURICIO WYATT Attn: Slava meng,[address] [facility], [place], [address], [place] [facility] 9 11:59:09 Candidiasis of vagina 53364792 Active Balbina Mathew MD Attn: Slava meng,[address] [facility], [place], [address], [place] [facility] 6 13:19:47 Anxiety 52397106 Active Balbina Mathew MD Attn: Nesssoledad meng,[address] [facility], [place], [address], [place] [facility] 6 13:19:47 MRI scan abnormal 789145516 Active Balbina Mathew MD Attn: Nesssoledad meng,[address] [facility], [place], [address], [place] [facility] 6 13:19:47 Migraine 74901350 Active Balbina Mathew MD Attn: Nesssoledad meng,[address] [facility], [place], [address], [place] [facility] 6 20:40:35 Arthritis 5803390 Active Balbina Mathew MD Attn: Slava yusra,[address] [facility], [place], [address], [place] [facility] 6 17:57:25 Knee pain Active Balbina Mathew MD Attn: Slava yusra,[address] [facility], [place], [address], [place] [facility] 6 14:08:37 Pain of elbow region 17887369 Active Balbina Mathew MD Attn: Slava yusra,[address] [facility], [place], [address], [place] [facility] 6 14:08:37 Palpitation s 02717084 Active Balbina Mathew MD Attn: Nesssoledad meng,[address] [facility], [place], [address], [place] [facility] 6 14:08:37 Inflammator y bowel disease 30349644 Active 2016 Balbina Mathew MD Attn: Nesssoledad meng,[address] [facility], [place], [address], [place] [facility] 7 18:03:31 Hypermobili ty syndrome 68575828 Active 2016 Balbina Mathew MD Attn: Slava meng,[address] [facility], [place], [address], [place] [facility] 7 18:03:34 Loss of sense of smell 37635054 Active 2017 Balbina Mathew MD Attn: Slava meng,[address] [facility], [place], [address], [place] [facility] 8 11:20:43 Disorder of lipid metabolism 818923043 Active 2017 Balbina Mathew MD Attn: Slava meng,[address] [facility], [place], [address], [place] [facility] 8 11:20:51 Feeling stressed 290501282 Active 2018 Balbina Mathew MD Attn: Nesssoledad meng,[address] [facility], [place], [address], [place] [facility] 9 13:31:32 Tachycardia 4877137 Active 2018 Balbina Mathew MD Attn: Nesssoledad meng,[address] [facility], [place], [address], [place] [facility] 9 13:31:36 Elevated blood-press ure reading without diagnosis of hypertensio n 862342683 Active 2018 Balbina Mathew MD Attn: Nesssoledad meng,[address] [facility], [place], [address], [place] [facility] 9 13:31:40 History of palpitation s 109678769 Active 2018 Balbina Mathew MD Attn: Slava yursa,[address] [facility], [place], [address], [place] [facility] 9 11:17:10 Essential hypertensio n 45644474 Active 2018 Balbina Mathew MD Attn: Slava yusra,[address] [facility], [place], [address], [place] [facility] 2 13:53:00 History of appendectom y 001886524 Active 2018 Balbina Mathew MD Attn: Slava yusra,[address] [place], [address], [place] [facility] 9 13:22:54 Abscess 891063638 Active 2018 Balbina Mathew MD Attn: Slava meng,[address] [place], [address], [place] [facility] 9 13:22:56 History of migraine 282441660 Active 2021 Balbina Mathew MD Attn: Slava meng,[address] [place], [address], [place] [facility] 2 16:29:17 Chronic ulcerative proctitis 81167723 Active 2021 Balbina Mathew MD Attn: Slava meng,[address] [place], [address], [place] [facility] 2 18:09:16 Benign essential hypertensio n 9831766 Active 2024 Balbina Mathew MD Attn: Slava meng,[address] [place], [address], [place] [facility] 5 16:08:01 Body mass index 30+ - obesity 735004537 Active 2024 Balbina Mathew MD Attn: Slava meng,[address] [place], [address], [place] [facility] 5 16:08:19 Problem Notes None recorded. Procedures Surgical History Date Name Laterality Status Provider Name and Address Organization Details Recorded Time 3 colonoscopy completed Balbina Mathew MD Attn: Accounting,[address] [facility], [place], [address], [place] [facility] 04/28/2023 16:48:28 2 Date of Last Mammogram completed Balbina Mathew MD Attn: Accounting,[address] [facility], [place], [address], [facility] - [facility] 09/03/2021 16:16:40 2 Date of Last Pap Smear completed Balbina Mathew MD Attn: Accounting,[address] [facility], [place], [address], [facility] - [facility] 09/03/2021 16:16:19 8 colonoscopy completed Balbina Mathew MD Attn: Accounting,[address] [facility], [place], [address], [facility] - [facility] 04/28/2023 16:47:38 Imaging Results None recorded. Procedure Notes None recorded. Medical Equipment None Reported. Allergies No known drug allergies Medications Name Sig Start Date Stop Date Status Note LastModified by Organization Details LastModified Time Prescripti on - New 12/22 completed Script for Ativan (for MRI). Not Available Not Available Not Available cyclobenza roxanne 10 mg tablet Take 1 tablet 3 times a day by oral route as directed for 14 days. 01/09 completed Not Available Not Available Not Available amoxicilli n 500 mg capsule 10/20 completed Not Available Not Available Not Available Qvar 80 mcg/actuat ion Metered Aerosol oral inhaler Inhale 2 puffs twice a day by inhalati on route. 06/29 completed Not Available Not Available Not Available neomycin-p olymyxin-h ydrocort 3.5 mg/mL-10,0 00 unit/mL-1 % ear solution 06/29 completed Not Available Not Available Not Available fluticason e 250 mcg-salmet sedrick 50 mcg/dose blistr powdr for inhalation INHALE ONE PUFF BY MOUTH TWICE DAILY EVERY MORNING & EVENING FOR BREATHIN G active Not Available Not Available No t Available atorvastat in 20 mg tablet 10/20 completed Not Available Not Available Not Available azithromyc in 250 mg tablet TAKE 2 TABLETS (500 MG) BY ORAL ROUTE ONCE DAILY FOR 1 DAY THEN 1 TABLET (250 MG) BY ORAL ROUTE ONCE DAILY FOR 4 DAYS 10/31 completed Not Available Not Available Not Available ibuprofen 800 mg tablet Take 1 tablet 3 times a day by oral route with meals for 30 days. 12/22 completed Not Available Not Available Not Available fluconazol e 150 mg tablet Take 150 mg every day by oral route as needed for 1 day. 10/20 completed Not Available Not Available Not Available hydrocodon e 5 mg-acetami nophen 325 mg tablet 01/09 completed Not Available Not Available Not Available prednisone 20 mg tablet Take 2 tablets every day by oral route with meals for 4 days. 10/31 completed Not Available Not Available Not Available Debrox 6.5 % ear drops Instill 5 drops twice a day by otic route for 4 days. 06/04 completed Not Available Not Available Not Available metronidaz ole 500 mg tablet 06/29 completed Not Available Not Available Not Available ketorolac 10 mg tablet Take 1 tablet every 6 hours by oral route as needed for 4 days. 01/09 completed Not Available Not Available Not Available amoxicilli n 875 mg tablet Take 1 tablet every 12 hours by oral route as directed for 7 days. 10/31 completed Not Available Not Available Not Available potassium chloride ER 20 mEq tablet,ext ended release(pa rt/cryst) 10/20 completed Not Available Not Available Not Available lorazepam 0.5 mg tablet 06/29 completed Not Available Not Available Not Available methotrexa te sodium 2.5 mg tablet 10/20 completed Not Available Not Available Not Available dicyclomin e 20 mg tablet 06/29 completed Not Available Not Available Not Available pantoprazo le 40 mg tablet,del ayed release TAKE ONE TABLET BY MOUTH EVERY MORNING FOR STOMACH active Not Available Not Available No t Available progestero ne micronized 200 mg capsule TAKE ONE CAPSULE BY MOUTH EVERY NIGHT AT BEDTIME active Not Available Not Available No t Available balsalazid e 750 mg capsule TAKE THREE CAPSULES BY MOUTH ONCE EVERY DAY active Not Available Not Available No t Available folic acid 1 mg tablet 10/20 completed Not Available Not Available Not Available montelukas t 10 mg tablet 06/29 completed Not Available Not Available Not Available hydroxyzin e HCl 25 mg tablet Take 1 tablet every day by oral route as needed for 14 days. 10/20 completed Not Available Not Available Not Available norethindr one acetate 1 mg-ethinyl estradiol 20 mcg tablet 03/07 completed Not Available Not Available Not Available lorazepam 1 mg tablet Take 1 tablet every day by oral route for 1 day. 06/29 completed Not Available Not Available Not Available levofloxac in 500 mg tablet Take 1.5 tablets every 24 hours by oral route for 5 days. 09/13 completed Not Available Not Available Not Available levofloxac in 750 mg tablet Take 1 tablet every day by oral route for 5 days. 06/29 completed Not Available Not Available Not Available methylpred nisolone 4 mg tablets in a dose pack 06/29 completed Not Available Not Available Not Available albuterol sulfate HFA 90 mcg/actuat ion aerosol inhaler INHALE 2 PUFF BY MOUTH EVERY 4-6 HOURS NEEDED 2024 active Not Available Not Available Not Avai lable Vitamin D2 1,250 mcg (50,000 unit) capsule 10/31 completed Not Available Not Available Not Available norethindr one (contracep tive) 0.35 mg tablet TAKE ONE TABLET BY MOUTH EVERY MORNING active Not Available Not Available No t Available loratadine 10 mg tablet 06/29 completed Not Available Not Available Not Available amoxicilli n 875 mg-potassi um clavulanat e 125 mg tablet 10/31 completed Not Available Not Available Not Available Bactrim DS 800 mg-160 mg tablet Take 1 tablet every 12 hours by oral route as directed for 3 days, for UTI. 2024 active Not Available Not Available Not Avai lable 03/12 (28) 1 mg-20 mcg (21)/75 mg (7) tablet TAKE 1 TABLET BY MOUTH EVERY DAY - TAKE ACTIVE PILLS CONTINUO USLY 09/09 completed Not Available Not Available Not Available (28) 1.5 mg-30 mcg (21)/75 mg (7) tablet 10/20 completed Not Available Not Available Not Available metoprolol tartrate 25 mg tablet TAKE ONE TABLET BY MOUTH TWICE DAILY EVERY MORNING & EVENING FOR BLOOD PRESSURE active Not Available Not Available No t Available nitrofuran toin monohydrat e/macrocry stals 100 mg capsule Take 1 capsule every 12 hours by oral route as directed for 7 days. 03/11 completed Not Available Not Available Not Available albuterol sulfate 08/10 completed Not Available Not Available Not Available Advair Diskus 01/31 completed Not Available Not Available Not Available Junel .07/20 (21) 05/15 completed Not Available Not Available Not Available Prilosec OTC onre po daily 10/31 completed Not Available Not Available Not Available Excedrin Extra Strength 02/04 completed Not Available Not Available Not Available calcium 600 mg (as carbonate) -vitamin D3 10 mcg (400 unit) tablet 10/20 completed Not Available Not Available Not Available FeroSul 325 mg (65 mg iron) tablet one po tid 10/20 completed Not Available Not Available Not Available Stelara 90 mg/mL subcutaneo us syringe 10/20 completed Not Available Not Available Not Available Lo Loestrin Fe 12/22 completed Not Available Not Available Not Available Virtussin AC 10 mg-100 mg/5 mL oral liquid 06/29 completed Not Available Not Available Not Available Tabby 1.5 mg-30 mcg tablet TAKE ONE TABLET BY MOUTH EVERY DAY 06/01 completed Not Available Not Available Not Available Chest Congestion Relief DM 10 mg-100 mg/5 mL oral syrup TAKE 10ML BY MOUTH EVERY 4 HOURS NEEDED FOR FOUR DAYS 08/03 completed Not Available Not Available Not Available Vitals Date Recorded Body height Body mass index (BMI) Body weight Heart rate Oxygen saturation Oxygen saturation in Arterial blood by Pulse oximetry Respiratory rate Body temperature Systolic And Diastolic Provider Name and Address Organization Details Last Updated DateTime 4 182.88 cm 32.3 kg/m2 073404. 27 g 84 /min 99 % 99 % 16 /min 99 [degF] 144/76 mm[Hg] Earnestine Galindo [place] [facility] 4 16:25:06 Date Recorded Body height Body mass index (BMI) Body weight Heart rate Oxygen saturation Oxygen saturation in Arterial blood by Pulse oximetry Respiratory rate Systolic And Diastolic Provider Name and Address Organization Details Last Updated DateTime 4 182.88 cm 31.9 kg/m2 303071. 93 g 88 /min 97 % 97 % 18 /min 140/86 mm[Hg] Earnestine Galindo MA [facility] 4 16:12:06 Date Recorded Systolic And Diastolic Provider Name and Address Organization Details Last Updated DateTime 08/03/2024 130/70 mm[Hg] Balbina Mathew MD Attn: Accounting,[address] [place], [address], [facility] 08/03/2024 16:13:48 Date Recorded Body height Body mass index (BMI) Body weight Heart rate Oxygen saturation Oxygen saturation in Arterial blood by Pulse oximetry Respiratory rate Body temperature Systolic And Diastolic Provider Name and Address Organization Details Last Updated DateTime 5 182.88 cm 31.5 kg/m2 457284. 59 g 72 /min 99 % 99 % 14 /min 99.1 [degF] 130/90 mm[Hg] Earnestine Galindo MA [facility] 5 16:04:06 Date Recorded Body height Body mass index (BMI) Body weight Respiratory rate Heart rate Oxygen saturation Oxygen saturation in Arterial blood by Pulse oximetry Systolic And Diastolic Provider Name and Address Organization Details Last Updated DateTime 3 182.88 cm 30.7 kg/m2 715417. 31 g 18 /min 76 /min 100 % 100 % 134/80 mm[Hg] Earnestine Galindo MA [facility] 3 15:52:59 Date Recorded Body height Body mass index (BMI) Body weight Heart rate Oxygen saturation Oxygen saturation in Arterial blood by Pulse oximetry Respiratory rate Systolic And Diastolic Provider Name and Address Organization Details Last Updated DateTime 4 182.88 cm 31.3 kg/m2 838662. 4 g 66 /min 98 % 98 % 16 /min 136/84 mm[Hg] Earnestine Galindo MA [facility] 4 15:40:18 Social History Question Answer Notes LastModified by Organizat ion Details LastModified Time Tobacco Smoking Status Never Smoker Balbina Mathew MD Attn: Accounting,[address] [place], [address], [facility] - [facility] 05/20/2014 16:54:18 What Is Your Level Of Caffeine Consumption? Occasional Information not available 03/21/2018 How Much Tobacco Do You Chew? None Information not available 03/21/2018 What Type Of Diet Are You Following? REGULAR Information not available 05/15/2018 Which Illicit Or Recreational Drugs Have You Used? None Information not available 03/21/2018 Are There Any Guns Present In Your Home? No Information not available 05/15/2018 Hard Of Hearing Or Deaf In One Or Both Ears? No Information not available 05/15/2018 Legally Blind In One Or Both Eyes? No Information no t available 05/15/2018 What Was The Date Of Your Most Recent Tobacco Screening? 08/03/2024 Information not available 08/03/2024 Seat Belts Used Routinely Yes Information not available 05/15/2018 Smoke Alarm In Home Yes Information not available 05/15/2018 How Much Tobacco Do You Smoke? No Information not available 12/22/2016 How Many Years Have You Smoked Tobacco? 0 Information not available 12/22/2016 Sex: Unknown Functional Status Question Answer Note LastModified by Organizat ion Details LastModified Time Do you use any illicit or recreational drugs? No Information not available 03/11/2022 What is your level of alcohol consumption? None Information not available 03/21/2018 Do you or have you ever used e-cigarettes or vape? Never used electronic cigarettes Information not available 11/01/2019 Mental Status None recorded. Family History Nothing Reported. Medical History Condition Response Migraines Y GI Problems Y Asthma Y Gynecological History Statement/Question Response Date of Last Pap Smear 02/23/2021 Date of Last Mammogram 06/25/2021 LMP Approximate Obstetrics History GPAL:G 0 P 0 0 0 0 Immunizations Vaccine Type Date Status Note Provider Nam e and Address Organization Details Recorded Time Influenza, split virus, quadrivalent, preservative 8 completed Balbina Mathew MD Attn: Accounting,[address] [facility], [place], [address], [place] [facility] 03/21/2018 13:03:29 Influenza, split virus, quadrivalent, preservative 0 completed Earnestine Galindo [place] null, [place] [facility] 03/07/2020 14:57:25 COVID-19, mRNA, LNP-S, PF, 30 mcg/0.3 mL dose 0 completed Jovana Cook [place], [place] [facility] 08/22/2020 14:44:29 COVID-19, mRNA, LNP-S, PF, 30 mcg/0.3 mL dose 1 completed Jov[place] Cook [place] [facility] 08/22/2020 14:44:55 Influenza, split virus, quadrivalent, preservative 1 completed Balbina Mathew MD Attn: Accounting,[address] [facility], [place], [place], [address] [place] [address], [place] [facility] 01/09/2021 15:58:11 COVID-19, mRNA, LNP-S, PF, 30 mcg/0.3 mL dose 1 completed Balbina Mathew MD Attn: Accounting,[address] [facility], [place], [place], [address] [place] [address], [place] [facility] 03/11/2022 16:12:36 influenza, unspecified formulation 2 completed Balbina Mathew MD Attn: Accounting,[address] [facility], [place], [address], [place] [facility] 03/11/2022 16:12:36 MMR 9 completed Balbina Mathew MD Attn: Accounting,[address] [facility], [place], [address], [place] [facility] 03/11/2022 16:12:36 DTP 8 completed Balbina Mathew MD Attn: Accounting,[address] [facility], [place], [address], [place] [facility] 03/11/2022 16:12:36 COVID-19, mRNA, LNP-S, PF, 30 mcg/0.3 mL dose 1 completed Balbina Mathew MD Attn: Accounting,[address] [facility] [facility], [place], [place], [address] [place] [address], [place] [facility] 03/11/2022 16:12:36 DTP 3 completed Balbina Mathew MD Attn: Accounting,204 1 [facility], [place], [address] [place] [address], [place] [facility] 03/11/2022 16:12:36 DTP 8 completed Balbina Mathew MD Attn: Accounting,204 1 [facility], [place], [address] [place] [address], [place] [facility] 03/11/2022 16:12:36 MMR 3 completed Balbina Mathew MD Attn: Accounting,204 1 [facility], [place], [address] [place] [address], [place] [facility] 03/11/2022 16:12:36 OPV, trivalent 3 completed Balbina Mathew MD Attn: Accounting,204 1 [facility], [place], [address] [place] [address], [place] [facility] 03/11/2022 16:12:36 COVID-19, mRNA, LNP-S, PF, 30 mcg/0.3 mL dose, katy-sucrose 2 completed Balbina Mathew MD Attn: Accounting,204 1 [facility], [place], [address] [place] [address], [place] [facility] 03/11/2022 16:12:36 OPV, trivalent 9 completed Balbina Mathew MD Attn: Accounting,204 1 [facility], [place], [address] [place] [address], [place] [facility] 03/11/2022 16:12:36 DTP 8 completed Balbina Mathew MD Attn: Accounting,204 1 [facility], [place], [address] [place] [address], [place] [facility] 03/11/2022 16:12:36 DTP 9 completed Balbina Mathew MD Attn: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
[2024-12-01 02:49] LABS: BEDSIDEPREGUCG Negative (Negative)
[2024-12-01 02:58] LABS: Hematocrit 40.6 % (37.0-47.0); Hemoglobin 12.5 g/dL (12.0-15.0); Immature Granulocyte Percent A 0.4 % (0-0.5); Lymphocytes Absolute Auto 2.77 K/mm3 (0.9-3.2); Mean Corpuscular HGB Conc 30.8 g/dl (32-36); Mean Corpuscular Hemoglobin 28.2 pg (26-34); Mean Corpuscular Volume 91.4 fl (80-100); Nucleated Red Blood Cells Absolute Auto 0.000 K/mm3 (0.0-0.012); Nucleated Red Blood Cells Perc 0.0 % (0.0-0.2); Platelet Count Result 318 k/mm3 (150-375); Red Blood Count 4.44 M/mm3 (4.2-5.4); White Blood Count 11.8 K/mm3 (4.5-10.0)
[2024-12-01 03:06] LABS: Alanine Aminotransferase 15 U/L (6-35); Albumin Level 4.1 g/dL (3.5-5.1); Alkaline Phosphatase 100 U/L (38-126); Anion Gap 8 mmol/L (4-12); Aspartate Amino Transferase 33 U/L (14-36); Bilirubin,Total 0.5 mg/dL (0.2-1.3); Blood Urea Nitrogen 6 mg/dL (7-17); Calcium 8.8 mg/dL (8.4-10.2); Carbon Dioxide 28 mmol/L (22-30); Chloride 101 mmol/L (98-107); Estimated CRCL calculation 113 ml/min; Estimated Glomerular Filt Rate > 60; Glucose 97 mg/dL (65-110); Lipase 85 U/L (23-300); Potassium 3.3 mmol/L (3.4-5.0); Sodium 137 mmol/L (137-145); Total Protein 8.2 g/dL (6.3-8.2)
[2024-12-01 03:19] LABS: Add Urine Microscopic? YES; Appearance Urine Clear (Clear); Glucose Urine UA Negative (Negative); Leukocyte Esterase Ur Negative LEU/UL (Negative); Nitrate Urine Negative (Negative); Non Pathogenic Casts 0-2; Specific Grav Ur 1.031 (1.001-1.035)
--- NOTE | 2024-12-01 03:50 | ED_ITS ---
HPI - Abdominal Pain General Chief Complaint: Abdominal Pain <Renard Solis DO - Last Filed: 12/01/24 08:20> Stated Complaint: lower abd pain/back pain <Renard Solis DO - Last Filed: 12/01/24 08:20> Time Seen by Provider: 12/01/24 03:44 <Renard Solis DO - Last Filed: 12/01/24 08:20> Source: patient <Renard Solis DO - Last Filed: 12/01/24 08:20> Mode of arrival: ambulatory <Renard Solis DO - Last Filed: 12/01/24 08:20> Limitations: no limitations <Renard Soils DO - Last Filed: 12/01/24 08:20> History of Present Illness HPI narrative: Patient is a 49-year-old female presenting to the emergency department complaining of lower abdominal pain in back pain for the past 2 and half weeks, who she has a urinary tract infection. Admits to associated dysuria. States she got started on antibiotic for with a going to goes to completion but is still having symptoms. Patient denies any nausea, vomiting, fever, cough, chest pain, difficulty breathing, focal weakness, numbness, recent injuries, diarrhea, melena, hematochezia. Patient is to history of Crohn's. Denies vaginal discharge. <Renard Solis DO - Last Filed: 12/01/24 08:20> Related Data Home Medications: Home Medications ?Medication ?Instructions ?Recorded ?Confirmed ?Last Taken ?Type albuterol sulfate 90 mcg/actuation 1 inh inhalation Q4 H 11/29/19 11/29/24 Unknown History aerosol inhaler (ProAir HFA) balsalazide 750 mg capsule 2,250 mg PO TID 11/29/19 Unknown History fluticasone 100 mcg-salmeterol 50 1 inh inhalation Q12 H 11/29/19 11/29/24 Unknown History mcg/dose blistr powdr for inhalation (Advair Diskus) metoprolol tartrate 25 mg tablet 25 mg PO DAILY 11/29/24 Unknown History pantoprazole 40 mg tablet,delayed 40 mg PO QAM 0 11/29/24 Unknown History release progesterone micronized 200 mg 200 mg PO QHS 09/09/23 11/29/24 Unknown History capsule ubrogepant 50 mg tablet (Ubrelvy) 100 mg PO ONCE 11/2911/29/24 Unknown History <Renard Solis, DO - Last Filed: 12/01/24 08:20> Allergies/Adverse Reactions: Allergies Allergy/AdvReac Type Severity Reaction Status Date / Time nut - unspecified Allergy Unknown Unknown Verified 12/01/24 00:16 <Renard Solis, DO - Last Filed: 12/01/24 08:20> Review of Systems 2 Review of Systems: A 10 system review of systems was completed on the patient and is negative except for what is stated in the HPI. Nursing and ancillary documentation was reviewed. <Renard Solis, DO - Last Filed: 12/01/24 08:20> [facility] Past Medical History Medical History: Medical History HTN (hypertension) Asthma <Renard Solis, DO - Last Filed: 12/01/24 08:20> Surgical History Surgical History: Surgical History History of colonoscopy 2019 Abscess History of appendectomy <Renard Solis DO - Last Filed: 12/01/24 08:20> Family History Family History: Family History Sibling Family history of gastrointestinal disorder Crohn disease Father A-fib Mother CHF (congestive heart failure) COPD (chronic obstructive pulmonary disease) Other Diabetes mellitus Family history of lung cancer Family history of malignant neoplasm of breast Family history of pancreatic cancer <Renard Solis DO - Last Filed: 12/01/24 08:20> Social History Social History: Social History Smoking status: Never smoker Alcohol intake: never Substance use: never Substance use type: does not use Lack of Transportation: No Lack of Food: Never True Current Housing: I Have Housing Concerned About Future Housing: No Difficulty Paying Gas/Electric Bills: No Difficulty Paying for Meds: No Currently Unemployed: No Education: Associate Degree Difficulty w/ Childcare or Family Care: No Living arrangements: alone Occupation/Education: occupation Additional occupation/education comments: Pt Access Gender identity (if verbalized by the patient): Female Spiritual care concerns: No <Renard Solis DO - Last Filed: 12/01/24 08:20> Exam 2 Narrative: CONST: No acute distress. Well nourished. HENMT: Head is normocephalic and atraumatic. Moist mucous membranes. No posterior oropharynx erythema. EYES: No scleral icterus. No conjunctival injection or pallor. PERRL. NECK: No meningeal signs. RESP: Able to speak in full sentences. Normal respiratory effort. CTAB. CARDIO: Regular rate. Regular rhythm. 2+ DP and radial pulses bilaterally. GI: Nondistended. Soft. Mild suprapubic tenderness to palpation, no rebound or guarding or rigidity. : No CVA tenderness to palpation. SKIN: No rashes or lesions noted on exposed skin. NEURO: Oriented x3. Moves all extremities. EXTREM/MSK/BACK: No pedal edema. PSYCH: Normal affect. <Renard Solis DO - Last Filed: 12/01/24 08:20> Course Course Emergency Course: ELIEL: Patient signed out to me pending CT abdomen pelvis. CT abdomen pelvis did not show any acute intra-abdominal process. Patient was re- interviewed and has continued to have dysuria despite being treated with Bactrim. Physical exam is unremarkable. Her vital sig ns are stable. Her urine here is not overly indicative of infection although she is still symptomatic. She will be given a dose of IV ceftriaxone and discharged on cefdinir. She will be given Urology follow-up to evaluate for other causes of dysuria or resolution of her symptoms. Patient given return precautions. < Ike Hall MD - Last Filed: 12/01/24 09:10> Vital Signs Vital signs: Vital Signs Temperature 97.6 F 12/01/24 00:14 Pulse Rate 100 12/01/24 00:14 Respiratory Rate 18 12/01/24 00:14 Blood Pressure 159/83 H 12/01/24 00:14 Pulse Oximetry 100 12/01/24 00:14 Oxygen Delivery Room Air 10/11/25 00:14 Temperature 98.0 F 12/01/24 02:40 Pulse Rate 85 12/01/24 08:24 Respiratory Rate 20 12/01/24 08:24 Blood Pressure 145/77 H 12/01/24 08:24 Pulse Oximetry 99 12/01/24 08:24 Oxygen Delivery Room Air 12/01/24 00:14 <Renard Solis DO - Last Filed: 12/01/24 08:20> Vital Signs Temperature 97.6 F 12/01/24 00:14 Pulse Rate 100 12/01/24 00:14 Respiratory Rate 18 12/01/24 00:14 Blood Pressure 159/83 H 12/01/24 00:14 Pulse Oximetry 100 12/01/24 00:14 Oxygen Delivery Room Air 12/01/24 00:14 Temperature 98.0 F 12/01/24 02:40 Pulse Rate 85 12/01/24 08:24 Respiratory Rate 20 12/01/24 08:24 Blood Pressure 145/77 H 12/01/24 08:24 Pulse Oximetry 99 12/01/24 08:24 Oxygen Delivery Room Air 12/01/24 00:14 <Ike Hall MD - Last Filed: 12/01/24 09:10> MDM - Abdominal Pain MDM Narrative Medical decision making narrative: Patient presents with the above complaint. Initial vitals are remarkable for no significant abnormalities. Physical examination as noted above. Differential diagnosis includes was not limited to: UTI, ureterolithiasis, appendicitis, other acute surgical abdominal process. Plan discussed: Laboratory analysis, CT of the pelvis, continues cardiac monitoring, 50s pulse oximetry, IV fluids, Toradol. CBC reveals a white blood cell count of 11.8. Comprehensive metabolic panel reveals a potassium of 3.3. Total creatine kinase is 226. Lipase is 85. Magnesium is 1.9. Lactic acid 0.9. Urinalysis reveals trace ketones, 3-5 RBCs, no bacteria. test negative. COVID and flu and RSV testing is negative. Patient signed out to oncoming physician pending CT abdomen pelvis. <Renard Solis DO - Last Filed: 12/01/24 08:20> Lab Data Result diagrams: 12/01/24 02:38 12/01/24 02:38 <Renard A. Solis, DO - Last Filed: 12/01/24 08:20> Labs: Lab Results 12/01/24 12/01/24 12/01/24 Range/Units 02:38 02:39 02:47 WBC 11.8 H (4.5-10.0) K/mm3 RBC 4.44 (4.2-5.4) M/mm3 Hgb 12.5 (12.0-15.0) g/dL Hct 40.6 (37.0-47.0) % MCV 91.4 (80-100) fl MCH 28.2 (26-34) pg MCHC 30.8 L (32-36) g/dl RDW 15.1 H (11.5-14.5) % Plt Count 318 (150-375) k/mm3 MPV 9.7 (7.4-10.4) fl Immature Gran % (Auto) 0.4 (0-0.5) % Neut % (Auto) 61.0 (45.5-73.1) % Lymph % (Auto) 23.6 (18.3-44.2) % [place] % (Auto) 9.4 H (2.6-8.5) % Eos % (Auto) 4.7 H (0-4.4) % Baso % (Auto) 0.9 (0.2-1.2) % Lymph # (Auto) 2.77 (0.9-3.2) K/mm3 [place] # (Auto) 1.1 H (0.1-0.6) K/mm3 Eos # (Auto) 0.6 H (0-0.3) K/mm3 Baso # (Auto) 0.1 (0.0-0.1) K/mm3 Abs Immat Gran (auto) 0.05 H (0.00-0.031) K/mm3 Absolute Neuts (auto) 7.2 H (1.3-6.7) K/mm3 Absolute Nucleated RBC 0.000 (0.0-0.012) K/mm3 Nucleated RBC % 0.0 (0.0-0.2) % Sodium 137 (137-145) mmol/L Potassium 3.3 L (3.4-5.0) mmol/L Chloride 101 (98-107) mmol/L Carbon Dioxide 28 (22-30) mmol/L Anion Gap 8 (4-12) mmol/L BUN 6 L (7-17) mg/dL Creatinine 0.73 (0.7-1.0) mg/dL Estim Creat Clear Calc 113 ml/min Estimated GFR > 60 (59 - ) Glucose 97 (65-110) mg/dL Lactic Acid (0.7-2.0) mmol/L Calcium 8.8 (8.4-10.2) mg/dL Magnesium 1.9 (1.6-2.3) mg/dL Total Bilirubin 0.5 (0.2-1.3) mg/dL AST 33 (14-36) U/L ALT 15 (6-35) U/L Alkaline Phosphatase 100 (38-126) U/L Total Creatine Kinase 226 H (30-135) U/L Total Protein 8.2 (6.3-8.2) g/dL Albumin 4.1 (3.5-5.1) g/dL Lipase 85 (23-300) U/L Urine Color Dark yellow (Yellow) Urine Appearance Clear (Clear) Urine pH 5.5 (5.0-9.0) Ur Specific [place] 1.031 (1.001-1.035) Urine Protein Trace (Negative) mg/dL Urine Glucose (UA) Negative (Negative) mg/dL Urine Ketones Trace H (Negative) mg/dL Ur Blood (Man) Negative (Negative) Urine Nitrate Negative (Negative) Urine Bilirubin Negative (Negative) Urine Urobilinogen 1.0 (<2.0) mg/dL Leukocyte Esterase Rfl Negative (Negative) TALYA/UL Urine RBC 3-5 H (0-2) /hpf Urine WBC 0-5 (0-3) /hpf Ur Squamous Epith Cells None seen (Few) /hpf Urine Bacteria None seen /hpf Urine Casts 0-2 POC Urine HCG, Qual Negative (Negative) Influenza A (RT-PCR) (Negative) Influenza B (RT-PCR) (Negative) RSV (RT-PCR) (Negative) SARS-CoV-2 RNA (RT-PCR) (Negative) 12/01/24 12/01/24 Range/Units 05:31 05:34 WBC (4.5-10.0) K/mm3 RBC (4.2-5.4) M/mm3 Hgb (12.0-15.0) g/dL Hct (37.0-47.0) % MCV (80-100) fl MCH (26-34) pg MCHC (32-36) g/dl RDW (11.5-14.5) % Plt Count (150-375) k/mm3 MPV (7.4-10.4) fl Immature Gran % (Auto) (0-0.5) % Neut % (Auto) (45.5-73.1) % Lymph % (Auto) (18.3-44.2) % [place] % (Auto) (2.6-8.5) % Eos % (Auto) (0-4.4) % Baso % (Auto) (0.2-1.2) % Lymph # (Auto) (0.9-3.2) K/mm3 [place] # (Auto) (0.1-0.6) K/mm3 Eos # (Auto) (0-0.3) K/mm3 Baso # (Auto) (0.0-0.1) K/mm3 Abs Immat Gran (auto) (0.00-0.031) K/mm3 Absolute Neuts (auto) (1.3-6.7) K/mm3 Absolute Nucleated RBC (0.0-0.012) K/mm3 Nucleated RBC % (0.0-0.2) % Sodium (137-145) mmol/L Potassium (3.4-5.0) mmol/L Chloride (98-107) mmol/L Carbon Dioxide (22-30) mmol/L Anion Gap (4-12) mmol/L BUN (7-17) mg/dL Creatinine (0.7-1.0) mg/dL Estim Creat Clear Calc ml/min Estimated GFR (59 - ) Glucose (65-110) mg/dL Lactic Acid 0.9 (0.7-2.0) mmol/L Calcium (8.4-10.2) mg/dL Magnesium (1.6-2.3) mg/dL Total Bilirubin (0.2-1.3) mg/dL AST (14-36) U/L ALT (6-35) U/L Alkaline Phosphatase (38-126) U/L Total Creatine Kinase (30-135) U/L Total Protein (6.3-8.2) g/dL Albumin (3.5-5.1) g/dL Lipase (23-300) U/L Urine Color (Yellow) Urine Appearance (Clear) Urine pH (5.0-9.0) Ur Specific [place] (1.001-1.035) Urine Protein (Negative) mg/dL Urine Glucose (UA) (Negative) mg/dL Urine Ketones (Negative) mg/dL Ur Blood (Man) (Negative) Urine Nitrate (Negative) Urine Bilirubin (Negative) Urine Urobilinogen (<2.0) mg/dL Leukocyte Esterase Rfl (Negative) TALYA/UL Urine RBC (0-2) /hpf Urine WBC (0-3) /hpf Ur Squamous Epith Cells (Few) /hpf Urine Bacteria /hpf Urine Casts POC Urine HCG, Qual (Negative) Influenza A (RT-PCR) Negative (Negative) Influenza B (RT-PCR) Negative (Negative) RSV (RT-PCR) Negative (Negative) SARS-CoV-2 RNA (RT-PCR) Negative (Negative) <Renard Solis, DO - Last Filed: 12/01/24 08:20> Lab Results 12/01/24 12/01/24 12/01/24 Range/Units 02:38 02:39 02:47 WBC 11.8 H (4.5-10.0) K/mm3 RBC 4.44 (4.2-5.4) M/mm3 Hgb 12.5 (12.0-15.0) g/dL Hct 40.6 (37.0-47.0) % MCV 91.4 (80-100) fl MCH 28.2 (26-34) pg MCHC 30.8 L (32-36) g/dl RDW 15.1 H (11.5-14.5) % Plt Count 318 (150-375) k/mm3 MPV 9.7 (7.4-10.4) fl Immature Gran % (Auto) 0.4 (0-0.5) % Neut % (Auto) 61.0 (45.5-73.1) % Lymph % (Auto) 23.6 (18.3-44.2) % [place] % (Auto) 9.4 H (2.6-8.5) % Eos % (Auto) 4.7 H (0-4.4) % Baso % (Auto) 0.9 (0.2-1.2) % Lymph # (Auto) 2.77 (0.9-3.2) K/mm3 [place] # (Auto) 1.1 H (0.1-0.6) K/mm3 Eos # (Auto) 0.6 H (0-0.3) K/mm3 Baso # (Auto) 0.1 (0.0-0.1) K/mm3 Abs Immat Gran (auto) 0.05 H (0.00-0.031) K/mm3 Absolute Neuts (auto) 7.2 H (1.3-6.7) K/mm3 Absolute Nucleated RBC 0.000 (0.0-0.012) K/mm3 Nucleated RBC % 0.0 (0.0-0.2) % Sodium 137 (137-145) mmol/L Potassium 3.3 L (3.4-5.0) mmol/L Chloride 101 (98-107) mmol/L Carbon Dioxide 28 (22-30) mmol/L Anion Gap 8 (4-12) mmol/L BUN 6 L (7-17) mg/dL Creatinine 0.73 (0.7-1.0) mg/dL Estim Creat Clear Calc 113 ml/min Estimated GFR > 60 (59 - ) Glucose 97 (65-110) mg/dL Lactic Acid (0.7-2.0) mmol/L Calcium 8.8 (8.4-10.2) mg/dL Magnesium 1.9 (1.6-2.3) mg/dL Total Bilirubin 0.5 (0.2-1.3) mg/dL AST 33 (14-36) U/L ALT 15 (6-35) U/L Alkaline Phosphatase 100 (38-126) U/L Total Creatine Kinase 226 H (30-135) U/L Total Protein 8.2 (6.3-8.2) g/dL Albumin 4.1 (3.5-5.1) g/dL Lipase 85 (23-300) U/L Urine Color Dark yellow (Yellow) Urine Appearance Clear (Clear) Urine pH 5.5 (5.0-9.0) Ur Specific [place] 1.031 (1.001-1.035) Urine Protein Trace (Negative) mg/dL Urine Glucose (UA) Negative (Negative) mg/dL Urine Ketones Trace H (Negative) mg/dL Ur Blood (Man) Negative (Negative) Urine Nitrate Negative (Negative) Urine Bilirubin Negative (Negative) Urine Urobilinogen 1.0 (<2.0) mg/dL Leukocyte Esterase Rfl Negative (Negative) TALYA/UL Urine RBC 3-5 H (0-2) /hpf Urine WBC 0-5 (0-3) /hpf Ur Squamous Epith Cells None seen (Few) /hpf Urine Bacteria None seen /hpf Urine Casts 0-2 POC Urine HCG, Qual Negative (Negative) Influenza A (RT-PCR) (Negative) Influenza B (RT-PCR) (Negative) RSV (RT-PCR) (Negative) SARS-CoV-2 RNA (RT-PCR) (Negative) 12/01/24 12/01/24 Range/Units 05:31 05:34 WBC (4.5-10.0) K/mm3 RBC (4.2-5.4) M/mm3 Hgb (12.0-15.0) g/dL Hct (37.0-47.0) % MCV (80-100) fl MCH (26-34) pg MCHC (32-36) g/dl RDW (11.5-14.5) % Plt Count (150-375) k/mm3 MPV (7.4-10.4) fl Immature Gran % (Auto) (0-0.5) % Neut % (Auto) (45.5-73.1) % Lymph % (Auto) (18.3-44.2) % [place] % (Auto) (2.6-8.5) % Eos % (Auto) (0-4.4) % Baso % (Auto) (0.2-1.2) % Lymph # (Auto) (0.9-3.2) K/mm3 [place] # (Auto) (0.1-0.6) K/mm3 Eos # (Auto) (0-0.3) K/mm3 Baso # (Auto) (0.0-0.1) K/mm3 Abs Immat Gran (auto) (0.00-0.031) K/mm3 Absolute Neuts (auto) (1.3-6.7) K/mm3 Absolute Nucleated RBC (0.0-0.012) K/mm3 Nucleated RBC % (0.0-0.2) % Sodium (137-145) mmol/L Potassium (3.4-5.0) mmol/L Chloride (98-107) mmol/L Carbon Dioxide (22-30) mmol/L Anion Gap (4-12) mmol/L BUN (7-17) mg/dL Creatinine (0.7-1.0) mg/dL Estim Creat Clear Calc ml/min Estimated GFR (59 - ) Glucose (65-110) mg/dL Lactic Acid 0.9 (0.7-2.0) mmol/L Calcium (8.4-10.2) mg/dL Magnesium (1.6-2.3) mg/dL Total Bilirubin (0.2-1.3) mg/dL AST (14-36) U/L ALT (6-35) U/L Alkaline Phosphatase (38-126) U/L Total Creatine Kinase (30-135) U/L Total Protein (6.3-8.2) g/dL Albumin (3.5-5.1) g/dL Lipase (23-300) U/L Urine Color (Yellow) Urine Appearance (Clear) Urine pH (5.0-9.0) Ur Specific [place] (1.001-1.035) Urine Protein (Negative) mg/dL Urine Glucose (UA) (Negative) mg/dL Urine Ketones (Negative) mg/dL Ur Blood (Man) (Negative) Urine Nitrate (Negative) Urine Bilirubin (Negative) Urine Urobilinogen (<2.0) mg/dL Leukocyte Esterase Rfl (Negative) TALYA/UL Urine RBC (0-2) /hpf Urine WBC (0-3) /hpf Ur Squamous Epith Cells (Few) /hpf Urine Bacteria /hpf Urine Casts POC Urine HCG, Qual (Negative) Influenza A (RT-PCR) Negative (Negative) Influenza B (RT-PCR) Negative (Negative) RSV (RT-PCR) Negative (Negative) SARS-CoV-2 RNA (RT-PCR) Negative (Negative) <Ike Hall MD - Last Filed: 12/01/24 09:10> Discharge Plan Discharge Clinical Impression: Abdominal pain, Dysuria <Renard Solis DO - Last Filed: 12/01/24 08:20> Patient Disposition: Home <Renard Solis DO - Last Filed: 12/01/24 08:20> Condition: Stable <Renard Solis DO - Last Filed: 12/01/24 08:20> Instructions: Antibiotic Form, Dysuria (ED) <DO Uma Mcdowell Last Filed: 12/01/24 08:20> Additional Instructions: You were seen in the emergency department for urinary symptoms. Your urine did not look infected but we will treat you with a different antibiotic to see if that improves your symptoms. I want you to follow-up with a urologist in 3-7 days to evaluate you for other causes of painful urination.If you develop severe pain fevers or any new or worsening symptoms please return to the emergency department for re-evaluation. <DO Uma Mcdowell Last Filed: 12/01/24 08:20> Patient Language: [place]er <Renard Solis DO - Last Filed: 12/01/24 08:20> Prescriptions: New cefdinir 300 mg capsule 300 mg PO Q12H Qty: 14 0RF No Action balsalazide 750 mg capsule 2,250 mg PO TID metoprolol tartrate 25 mg tablet 25 mg PO DAILY albuterol sulfate [ProAir HFA] 90 mcg/actuation HFA aerosol inhaler 1 inh inhalation Q4H fluticasone propion-salmeterol [Advair Diskus] 100-50 mcg/dose blister with device 1 inh inhalation Q12H pantoprazole 40 mg tablet,delayed release (DR/EC) 40 mg PO QAM progesterone micronized 200 mg capsule 200 mg PO QHS Ubrelvy 50 mg tablet 100 mg PO ONCE Rx Instructions: 09/03/2022 2 Samples given Lot # [id number] Exp: 08/15 <DO Uma Mcdowell Last Filed: 12/01/24 08:20> Follow-up/Referrals: Kvng,Rodney Mortensen [Primary Care Provider] Bon Gil MD [Physician, Urology] - 3 Days Referral Note: Dysuria, negative ua <DO Uma Mcdowell Last Filed: 12/01/24 08:20>
--- OUTSIDE RECORDS SUMMARY | 2024-12-01 03:50 | XMS_ITS | Clinical Summary ---
Author Organization [facility] Address [address] [address] Phone Care Team Providers Care Patented Hogshead Assembler Name Role Phone Balbina Calderon MD Primary Care Provider Yair Vickers MD Unavailable [phone] Norma Durbin MD Unavailable [phone] Allergies No known active allergies Medications [...] Telephone [facility] - [place] [address] [place] [address] Stephania Vieira APRN, CONTAINERS SALES REPRESENTATIVE Appointment; Referral from Last 3 Months Immunizations Immunization Administration Dates Next Due Covid-19, Mrna, Lnp-s, Pf, 3 0 Mcg/0.3 Ml Dose ([email or web address]) 11/28/2020,11/21/2020,03/03/2020,2019 DTP Vaccine 06/18/1982, 9,1977,1977,1977 Influenza, Injectable, [...] on file Legal Sex Female 1:37 PM CIGARETTE BOOK MAKER Gender Identity Not on file Sexual Orientation Not on file Last Filed Vital Signs Vital Sign Reading Time Taken Comments Blood Pressure 148/88 04/21/2023 4:01 PM CIGARETTE BOOK MAKER Pulse 63 04/21/2023 4:01 PM CIGARETTE BOOK MAKER Temperature 37 C (98.6 F) 04/21/2023 4:01 PM CIGARETTE BOOK MAKER Respiratory Rate 14 04/21/2023 4:01 PM CIGARETTE BOOK MAKER Oxygen Saturation 100% 04/21/2023 4:01 PM CIGARETTE BOOK MAKER Inhaled Oxygen Concentration - - Weight 106.5 kg (234 lb 12.8 oz) 04/21/2023 4:01 PM CIGARETTE BOOK MAKER Height 177.8 cm (5' 10) 04/21/2023 4:01 PM CIGARETTE BOOK MAKER Body Mass Index 33.69 04/21/2023 4:01 PM CIGARETTE BOOK MAKER Plan of Treatment Health Maintenance Due Date [...] Most Recently Relevant to Health Maintenance Insurance [facility] Care Teams Patented Hogshead Assembler Relationship Specialty [place] [address] [place] [address] PCP - General Internal Medicine 01/02/20 Yair Vickers MD [address] [facility] [address] [address] Consulting Physician Cardiovascular Disease - Cardiology 08/28/21 Norma Durbin MD [address] [place] [address] Consulting Physician Gastroenterology 04/22/22
--- OUTSIDE RECORDS SUMMARY | 2024-12-01 03:50 | XMS_ITS | Clinical Summary ---
Author Organization [facility] Address [address] [place] [address] Care Team Providers Care Insert Molding Operator Name Role Phone Balbina Calderon MD Primary Care Provider Source Comments [facility],non-owned Affiliates and Associated Physician Practices is amultiple site organization consisting of ambulatory clinics and hospital sitesin [place], [place] and [place]. This disclosure is being madepursuant to the Care Everywhere program and may not contain all information available regarding this patient. Last updated 17.[facility] Medications * Be aware that medications may [...] on file Legal Sex Female 5:37 PM CAREER TECHNOLOGY TEACHER Gender Identity Not on file Sexual Orientation Not on file Last Filed Vital Signs Vital Sign Reading Time Taken Comments Blood Pressure 142/88 04/28/2016 11:01 AM CAREER TECHNOLOGY TEACHER Pulse 102 04/28/2016 11:01 AM CAREER TECHNOLOGY TEACHER Temperature 36.9 C (98.5 F) 04/28/2016 11:01 AM CAREER TECHNOLOGY TEACHER Respiratory Rate 16 04/28/2016 11:01 AM CAREER TECHNOLOGY TEACHER Oxygen Saturation - - Inhaled Oxygen Concentration - - Weight 92.1 kg (203 lb) 04/28/2016 11:01 AM CAREER TECHNOLOGY TEACHER Height 175.3 cm (5' 9) 04/28/2016 11:01 AM CAREER TECHNOLOGY TEACHER Body Mass Index 29.98 04/28/2016 11:01 AM CAREER TECHNOLOGY TEACHER Plan of Treatment Upcoming Encounters Date Type Department Care Team (Late st Contact Info) Description 02/07/2025 3:00 PM CAREER TECHNOLOGY TEACHER Office Visit [facility] - GI [address] [place] [address] Kim Reno MD [address] [place] [address] Health Maintenance Due Date Last Done Comments [...] to complete this topic Insurance Care Teams Insert Molding Operator Relationship Specialty [place] [address] [place] [id number] [facility] - General 10/14/15
--- OUTSIDE RECORDS SUMMARY | 2024-12-01 03:50 | XMS_ITS | Encounter Summary ---
Author Organization [facility] Address [address] [place] [address] Phone Care Team Providers Care Glycerin Operator Name Role Phone Balbina Calderon MD Primary Care Provider Yair Vickers MD Unavailable Norma Durbin MD Unavailable [phone] Dom Hilliard MD Unavailable [phone] Reason for Visit * Reason Comments Medication Refill Encounter Details Date Type Department Care Team (Late st Contact Info) Description 01/30/2021 Refill [facility] - Gastroenterology [facility] [address] [place] [id number] Diana Gao Dedra, PAC [address] [place] [address] Medication Refill Social History Tobacco Use Types Packs/Day Years Used Date Smoking Tobacco: Never Smokeless Tobacco: Never Alcohol Use Standard Drinks/Week Comments Not Currently 0 (1 standard drink = 0.6 oz pur e alcohol) Sexually Active Control Partners Comments Not Currently Comments No Sex and Gender Information Value Date Recorded Sex Assigned at Not on file 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 balsalazide (COLAZAL) 750 MG Capsule [Pharmacy Med Name: *BALSALAZIDE 750MG] 180 Capsule 0 Sig: TAKE THREE CAPSULES BY MOUTH ONCE DAILY Last fill: 12/02/2020 for 180 caps Patients last OV with GI: 10/14/2020 Next Office Visit with GI: None scheduled. Medication failed protocol, balsalazide order pended, please review. 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 [address] [address] Consulting Physician Cardiovascular Disease - Cardiology 08/28/21 Norma Durbin MD [address] [place] [address] Consulting Physician Gastroenterology 04/22/22 Dom Hilliard MD [address] [place] [address] Consulting Physician Gastroenterology 05/18/23 05/10/24 documented as of this encounter
--- OUTSIDE RECORDS SUMMARY | 2024-12-01 03:50 | XMS_ITS | Clinical Summary ---
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
[2024-12-01 04:07] LABS: Creatine Kinase 226 U/L (30-135); Magnesium 1.9 mg/dL (1.6-2.3)
[2024-12-01] MEDS: KETOROLAC 15 MG/ML VIAL (*BKC) IV PUSH (04:49)
[2024-12-01] MEDS: SODIUM CHLORIDE 0.9% IV 500 ML 999 ML IV CONT (04:49)
[2024-12-01 06:17] LABS: Influenza A QL RT-PCR Negative (Negative); Influenza B QL RT-PCR Negative (Negative); RSV RNA, RT-PCR Negative (Negative); SARS-CoV-2 RNA PCR Negative (Negative)
== END 2024-12-01 09:23 | disposition home or self-care (01) ==
PROVIDERS: Emergency Provider Student in an Organized Health Care Education/Training Program; PCP Internal Medicine Infectious Disease
DX: R10.30 Lower abdominal pain, unspecified (principal); R30.0 Dysuria; Z20.822 Contact with and (suspected) exposure to COVID-19; I10 Essential (primary) hypertension; J45.909 Unspecified asthma, uncomplicated; K50.90 Crohn's disease, unspecified, without complications
CPT/HCPCS: 36415; 74178; 80053; 81001; 81025; 82550; 83605; 83690; 83735; 85025; 87040; 87637; 96361; 96374; 99284; J1885; J7040; Q9967